=== PATIENT | female | born 1950 | race Caucasian/White ===

== ENCOUNTER → 2024-06-19 | Outpatient (CLI) | payer MEDICARE, OTHER, SELFPAY ==
[2024-06-19 11:59] LABS: Thyroid Stimulating Hormone 2.97 uIU/mL (0.55-4.78)
[2024-06-26 07:38] LABS: ANA Screen, IFA NEGATIVE (NEGATIVE)
== END | disposition home or self-care (01) ==
LOC: COPL 10:46
PROVIDERS: PCP Internal Medicine; Referring Provider Specialist; Visit Provider Specialist
DX: R13.10 Dysphagia, unspecified (principal)
CPT/HCPCS: 36415; 84443; 86038

== ENCOUNTER 2024-08-21 12:54 | Inpatient (IN) | payer MEDICARE, OTHER, SELFPAY ==
[2024-08-21] VITALS (11 sets, daily range): BP systolic 88–127; BP diastolic 42–78; PULSE 60–65; RESP 14–91; TEMP 36.1–39.2; O2SAT 91–100; BMI 26.6
--- NOTE | 2024-08-21 13:01 | EKG_ITS ---
[facility] Test Date: 2024-08-21 Pat Name: JOE CASTELLANO Department: Room: - Gender: Female [employer]: : 1950 Requested By: ED Temporary Provider Order Number: [id number] Reading MD: ED Temporary Provider Measurements Intervals [place] Rate: 60 P: 189 PA: 299 QRS: -9 QRSD: 124 T: 0 QT: 344 QTc: 345 Interpretive Statements ELECTRONIC ATRIAL PACEMAKER POSSIBLE RIGHT VENTRICULAR CONDUCTION DELAY [RSR (QR) IN V1/V2] NONSPECIFIC T-WAVE ABNORMALITY ABNORMAL RHYTHM ECG Compared to ECG 05/02/2024 09:12:53 T-wave abnormality now present Ventricular-paced complex(es) or rhythm no longer present /store/S0/[id number]/ecg/[id number].pdf
--- NOTE | 2024-08-21 13:11 | XR_ITS ---
Examination: CT brain head without contrast. 2-D sagittal coronal reconstructions Date and time of exam:August 21, 2024 at 1602 hours INDICATIONS: Patient fell today with injury to the head, head pain COMPARISON: 04/16/2024 CTDI: vol (mGy):52.3 DLP: (mGycm):1031 Technique: Multiple CT axial sections of the brain have been obtained, 5 mm slice thickness. Contrast has not been administered. 2-D sagittal, coronal reconstructions have been obtained Low dose protocols were performed. One or more of the following dose reduction techniques were used; automated exposure control, adjustment of the mA and/or KV according to patient size, use of iterative reconstruction technique. Findings: No significant ventricular enlargement. Intra-axial or extra-axial hemorrhage density is not seen. No mass effect or midline shift Basal cisterns are not remarkable. Fourth ventricle is midline. Cranial vault intact. Impression: Negative for acute hemorrhage, mass effect or midline shift
--- NOTE | 2024-08-21 13:12 | PD.EDRME ---
Rapid Medical Screening Exam RME Arrival date/time: 08/21/24 12:54 74-year-old female presents to the emergency department with complaints of altered mental status per family member. I have greeted and performed a focused initial assessment of this patient. Initial appropriate labs ordered at this time. A comprehensive ED assessment and evaluation of the patient and analysis of all test and completion of medical decision making process will be conducted by additional ED provider. Chief Complaint: Altered Mental Status Time Seen by Provider: 08/21/24 13:11
[2024-08-21 13:41] LABS: Basophils # (Auto) 0.1 Thou/mm3 (0.0-0.2); Basophils % (Auto) 0 % (0-2.5); Eosinophils % (Auto) 0 % (0-10); Hematocrit 38.3 % (36.0-46.0); Hemoglobin 12.8 g/dL (12.0-16.0); Immature Granulocytes % (Auto) 1 % (0-0); Immature Granulocytes Auto 0.15 Thou/mm3 (0.00-0.00); Lymphocytes # (Auto) 1.2 Thou/mm3 (1.0-4.8); Lymphocytes % (Auto) 5 % (10-50); Mean Corpuscular HGB Conc 33.4 g/dl (31.0-37.0); Mean Corpuscular Hemoglobin 30.2 pg (25.0-35.0); Mean Corpuscular Volume 90 fL (80-100); Monocytes # (Auto) 0.8 Thou/mm3 (0.0-0.8); Monocytes % (Auto) 4 % (0-12); Neutrophils # (Auto) 20.7 Thou/mm3 (1.8-7.7); Neutrophils % (Auto) 90 % (37-80); Nucleated Red Blood Cell % 0 /100 WBC (0); Platelet Count 211 Thou/mm3 (140-440); RDW Standard Deviation 50.7 fL (36.4-46.3); Red Blood Count 4.24 Miln/mm3 (4.00-5.20)
--- NOTE | 2024-08-21 13:50 | PD.EDADULT ---
ED General RME/HPI General Chief complaint: Altered Mental Status Stated complaint: CONFUSED/CAN'T WALK TODAY, LAST NORMAL 2200 Time Seen by Provider: 08/21/24 13:11 Arrival date/time: 08/21/24 12:54 CC: Confusion/altered mental status HPI patient which normally wakes up at 7 AM in the morning did not wake up until 11 after her son woke her up, the patient states she sat in her chair as observed by her and was minimal responsive with simple yes or no to questions complained of feeling chilly put her next to her heater, the patient became too hot and still complained of chills. This was approximately 11 AM currently at 151 patient is awake alert oriented x 3 Glascow coma 15 no focal deficits only complaining of chronic back pain. Initial vital signs show the patient has no fever and at bedside states this is the brightest she has been all day . assures me the patient was normal yesterday. Patient has significant cardiac history with pacemaker placed by Dr. Marycarmen Harris. RME / HPI RME / HPI narrative: 08/21/24 12:54 74-year-old female presents to the emergency department with complaints of altered mental status per family member. I have greeted and performed a focused initial assessment of this patient. Initial appropriate labs ordered at this time. A comprehensive ED assessment and evaluation of the patient and analysis of all test and completion of medical decision making process will be conducted by additional ED provider. Related Data Home Medications ?Medication ?Instructions ?Recorded ?Confirmed Calcium Carbonate/Cholecalciferol 600 mg PO DAILY #0 tabs 06/11/17 08/21/24 600 * (CALTRATE PLUS D 600 *) Hydrocodone/Acetaminophen * (NORCO 2 tab PO DAILY PRN Pain #0 tabs 06/11/17 08/21/24 7.5/325 *) Levothyroxine * (SYNTHROID *) 0.05 mg PO QDAY #0 tabs 06/11/17 08/21/24 Multivitamins * (CENTRUM *) 1 tab PO QDAY #0 tabs 06/11/17 08/21/24 furosemide 40 mg tablet (Lasix) 40 mg PO QDAY #0 tabs 06/11/17 08/21/24 apixaban 5 mg tablet (Eliquis) 5 mg PO BID 04/16/24 08/21/24 revefenacin 175 mcg/3 mL solution 175 mcg inhalation QDAY 04/16/24 05/02/24 for nebulization (Yupelri) sennosides 8.6 mg tablet (senna) 8.6 mg PO HS 04/16/24 08/21/24 insulin detemir U-100 100 unit/mL 50 unit subcut DAILY 05/02/24 08/22/24 (3 mL) subcutaneous pen (Levemir FlexPen) prochlorperazine maleate 5 mg 5 mg PO BID 05/02/24 05/02/24 tablet carbidopa ER 50 mg-levodopa 200 mg 1 tab PO TID 08/21/24 08/21/24 tablet,extended release gabapentin 300 mg capsule 300 mg TID 08/21/24 08/21/24 metoprolol succinate 100 mg 100 mg PO DAILY 08/21/24 08/21/24 tablet,extended release 24 hr Allergies Allergy/AdvReac Type Severity Reaction Status Date / Time iodine Allergy Severe Swell up Verified 08/21/24 12:57 Review of Systems Review of Systems Narrative Review of Systems: GEN: No fever, no chills, no weight loss EYES: No discharge, no visual changes, no pain HEENT: No ear pain, no congestion, no sore throat PULM: No shortness of breath, no cough, no congestion CV: No chest pain, no dyspnea on exertion, no palpitations GI: No nausea, no vomiting, no diarrhea, no pain, no constipation : No frequency, no urgency, no dysuria MUSC/SKEL: No joint pain, no back pain SKIN: No rash PSYCH: No hallucinations, no depression HEME/LYMPH: No easy bleeding or bruising tendencies NEURO: No weakness, no headache, + confusion Past Medical History Past Medical History NEUROLOGIC: Positive Parkinson's Disease; Negative Seizures CARDIAC: Positive Cardiac Disorders, Congestive Heart Failure and Hypertension RESPIRATORY: Positive Chronic Obstructive Pulmonary Disease (COPD) and Asthma GENITOURINARY: Positive Renal Disease ENDOCRINE: Positive Diabetes Mellitus Type 2 and Hypothyroidism; Negative Diabetes Mellitus Type 1 HEMATOLOGIC: Negative Sickle Cell Disease OTHER HISTORY: Positive Blood Transfusions; Negative Autoimmune Disease, Blood Transfusion Reaction or Anesthesia Reactions Family History FAMILY HISTORY: Positive Family Cardiac Disorders, Family Gastrointestinal Problems, Family Cancer and Family Surgery; Negative Family Psychiatric Problems, Family Respiratory Disorders or Family Anesthesia Reaction Surgical History SURGICAL: Positive Pacemaker and Tonsillectomy Social History SMOKING STATUS: Never smoker ED Exam Narrative Physical exam: [General: Deconditioned, but not frail and not in any acute distress Head normocephalic HEENT: Within acceptable limits Neck is supple nontender Chest equal chest rise nontender to palpation Respiratory: Clear to auscultation no wheezes crackles or rubs CV: Rate rhythm is regular no murmurs rubs or clicks Abdomen is distended secondary to body habitus soft nontender no masses positive bowel sounds all 4 quadrants Back: No CVA tenderness no spinous process tenderness from cervical spine thoracic and lumbar spine Skin: Intact no petechiae rash induration ulceration or crepitus Extremities: Moving all extremity against resistance cap refill less than 2 seconds neurosensory intact. No lower extremity edema's. Neuro: Awake alert oriented x3 Glascow coma 15 no focal deficits] Course Quality Measures none Orders Category Date Time Status Bedside Blood Glucose NOW Care 08/21/24 13:01 Completed Bedside Blood Glucose NOW Care 08/21/24 13:11 Active Bedside COVID-19 Antigen Test NOW Care 08/21/24 13:11 Active Bedside Influenza A&B Antigen Test NOW Care 08/21/24 13:11 Completed Sander And Polisher STAT Care 08/21/24 14:13 Active Continuous Pulse Oximetry STAT Care 08/21/24 14:13 Completed EKG (ED ONLY) *Do not use* NOW Care 08/21/24 13:02 Completed In and Out Catheter X1 Care 08/21/24 13:11 Completed In and Out Catheter X1PRN Care 08/21/24 14:13 Completed Insert IV NOW Care 08/21/24 13:11 Active NPO NOW Care 08/21/24 13:11 Active NPO STAT Care 08/21/24 14:13 Active Strict Intake and Output Routine Care 08/21/24 14:[address] head/brain wo con Stat Exams 08/21/24 13:11 Completed EKG (ED Only) Stat Exams 08/21/24 13:01 Draft XR chest 1V Stat Exams 08/21/24 14:14 Completed Acetaminophen Stat Lab 08/21/24 13:31 Completed Alcohol, Blood Medical Stat Lab 08/21/24 13:31 Completed Ammonia Stat Lab 08/21/24 13:31 Completed B-Type Natriuretic Peptide Stat Lab 08/21/24 14:20 Completed Blood Culture (Lab) Stat Lab 08/21/24 14:15 Results CBC Stat Lab 08/21/24 13:31 Completed CBC Stat Lab 08/21/24 14:20 Completed Comprehensive Metabolic Panel Stat Lab 08/21/24 13:31 Completed Drug Screen,Urine Stat Lab 08/21/24 13:50 Completed LDH (Lactate Dehydrogenase) Stat Lab 08/21/24 14:20 Completed Lactate (Lactic Acid) Stat Lab 08/21/24 14:20 Completed Lipase Stat Lab 08/21/24 14:20 Completed Magnesium Stat Lab 08/21/24 14:20 Completed Partial Thromboplastin Time Stat Lab 08/21/24 13:31 Completed Phosphorous Stat Lab 08/21/24 14:20 Completed Procalcitonin Stat Lab 08/21/24 14:20 Completed Prothrombin Time with INR Stat Lab 08/21/24 13:31 Completed Troponin I Stat Lab 08/21/24 13:31 Completed Troponin I Stat Lab 08/21/24 14:20 Completed Urinalysis Stat Lab 08/21/24 13:50 Completed Urine Culture Stat Lab 08/21/24 13:50 Results Acetaminophen Tab [Tylenol Tab] Med 08/21/24 14:14 Discontinued 650 mg PO X1 ONE Sodium Chloride 0.9% 1000 ml [Ns] 1,000 ml Med 08/21/24 16:21 Discontinued IV 999 mls/hr Sodium Chloride 0.9% 1000 ml [Ns] 1,000 ml Med 08/21/24 16:21 Discontinued IV 999 mls/hr cefTRIAXone/D5w 1gm IV premix [Rocephin/D5w 1gm IV Med 08/21/24 16:12 Discontinued premix] 50 ml IV X1 Oxygen Delivery NOW RT 08/21/24 14:13 Active Vital Signs Vital signs: Vital Signs Temperature 98.4 F 08/21/24 13:15 Pulse Rate 62 08/21/24 13:15 Respiratory Rate 16 08/21/24 13:15 Blood Pressure 126/78 08/21/24 13:15 Pulse Oximetry (%) 91 L 08/21/24 13:15 Oxygen Delivery Method Room Air 08/21/24 13:15 [facility] Patient data External records reviewed:: [facility] previous records Clinical information provided by:: patient and spouse Social determinants that could affect healthcare access:: none Patient has the following chronic illnesses:: Pacemaker. How is presenting disease/condition affected by chronic disease/condition?: uneffected by Evaluation data The following diagnostics were reviewed and interpreted by me:: lab results and radiology exam(s) Lab and/or radiology exams considered but not ordered:: EKG performed at 1319 shows a ventricular rate of 60 NH interval 299 QRS of 124 QTc of 345 electronically paced rhythm nonspecific T wave abnormalities but there is a baseline wander in all leads. CBC shows a leukocytosis of 25, no anemia thrombocytopenia Coags show an INR 1.2 CMP shows a sodium of 137 potassium of 4.7 chloride of 104 CO2 of 23.7 BUN of 34 creatinine of 2.1 glucose 153 Lactic acid of 2.7 Pro-Severo of 13.83 Trope of 0.228 Lipase 27. Urine is grossly positive for UTI. Interpretation Summary: Positive UTI febrile septic, with a mildly elevated troponin of 0.228. Patient's case discussed with Dr. Murillo, resident who agrees to except the patient for Dr. Grajeda. Patient is in agreement with the plan Medications Medications considered but not ordered:: None Medication administrations:: Medication Administration History Acetaminophen (Acetaminophen 325 Mg Tablet) 650 mg PO Q6H PRN PRN Reason: Fever >100.4 or pain Stop: 09/20/24 17:20 Albuterol/Ipratropium (Albuterol/Ipratropium (Duoneb) Rt Fidelina 3 Ml Nebu) 3 ml INH Q2HR PRN PRN Reason: SHORTNESS OF BREATH OR WHEEZE Stop: 09/20/24 17:20 Last Admin: 08/21/24 18:29 Dose: 3 ml Documented By: Apixaban (Apixaban 2.5 Mg Tablet) 5 mg PO BID SHANE Stop: 09/20/24 20:59 Last Admin: 08/22/24 08:35 Dose: 5 mg Documented By: Admin: 08/21/24 20:38 Dose: 5 mg Documented [place] [facility] [place] Carbidopa/Levodopa (Carbidopa/Levodopa Cr 50/200 Tabcr) 1 tab PO TID SHANE Stop: 09/21/24 08:59 Last Admin: 08/22/24 08:35 Dose: 1 tab Documented By: TM Dextrose (Dextrose 50%-Water Inj 50 Ml Syringe) 25 ml IV Q15MIN PRN PRN Reason: BG 50-70 responsive npo pt Stop: 09/20/24 17:33 Dextrose (Dextrose 50%-Water Inj 50 Ml Syringe) 50 ml IV Q15MIN PRN PRN Reason: BG <50 OR BG <70 & pt unresponsive Stop: 09/20/24 17:33 Glucagon (Glucagon Inj 1 Mg Vial) 1 mg IM Q15MIN PRN PRN Reason: BG <70, and no IV access Piperacillin/Tazobactam/Dextrose (Zosyn) 50 mls @ 12.5 mls/hr IV Q8HR [facility] Stop: 08/29/24 05:59 Last Admin: 08/22/24 05:44 Dose: 12.5 mls/hr Documented By: [facility] Sodium Chloride (Ns) 1,000 mls @ 100 mls/hr IV .Q10H [facility] Stop: 09/21/24 09:49 Last Admin: 08/22/24 10:27 Dose: 100 mls/hr Documented By: TM Insulin Glargine (Insulin Glargine (Lantus) 5 Unit/0.05 Ml (Per 5 Units)) 10 unit SC QDAY [facility] Stop: 09/21/24 08:59 Last Admin: 08/22/24 08:35 Dose: 10 unit Documented By: TM Co-signed By: CARO Comments: Insulin Human Lispro (Insulin Lispro (Admelog) 1 Unit/0.01 Ml Unit) 0 unit SC AC [facility]; Protocol Stop: 09/21/24 07:29 Last Admin: 08/22/24 07:51 Dose: 2 unit Documented By: TM Co-signed By: JESSIE Magnesium Hydroxide (Milk Of Magnesia Susp 30 Ml Udc) 30 ml PO QDAY PRN; Protocol PRN Reason: CONSTIPATION Stop: 09/20/24 17:20 Ondansetron HCl (Ondansetron Inj 2 Mg/Ml Inj 2 Ml) 4 mg IV Q6H PRN; Protocol PRN Reason: NAUSEA OR VOMITING Stop: 09/20/24 17:20 Pharmacy Consult (Pharmacy Renal Dose Adjustment 1 Ea) 1 each XX PRN PRN PRN Reason: CONSULT Stop: 09/20/24 19:06 Sennosides (Senna Tablet) 1 tab PO QDAY PRN; Protocol PRN Reason: constipation Stop: 09/20/24 17:20 Discontinued Medications Acetaminophen (Acetaminophen 325 Mg Tablet) 650 mg PO X1 ONE Stop: 08/21/24 14:15 Last Admin: 08/21/24 14:29 Dose: 650 mg Documented By: DANIEL Carbidopa/Levodopa (Carbidopa/Levodopa Cr 50/200 Tabcr) 1 tab PO TID SHANE Stop: 09/20/24 21:59 Carbidopa/Levodopa (Carbidopa/Levodopa Cr 50/200 Tabcr) 1 tab PO X1 ONE Stop: 08/21/24 21:34 Last Admin: 08/21/24 21:39 Dose: 1 tab Documented By: CHAVA Ceftriaxone Sodium/Dextrose (Rocephin/D5w 1gm Iv Premix) 50 mls @ 100 mls/hr IV X1 ONE Stop: 08/21/24 16:41 Last Infusion: 08/21/24 17:12 Dose: Infused Documented By: Admin: 08/21/24 16:35 Dose: 100 mls/hr Documented By: DANIEL Sodium Chloride (Ns) 1,000 mls @ 999 mls/hr IV .Q1H1M ONE Stop: 08/21/24 17:21 Last Infusion: 08/21/24 17:35 Dose: Infused Documented By: Admin: 08/21/24 16:34 Dose: 999 mls/hr Documented By: DANIEL Sodium Chloride (Ns) 1,000 mls @ 999 mls/hr IV .Q1H1M ONE Stop: 08/21/24 17:21 Last Infusion: 08/21/24 17:40 Dose: Infused Documented By: Admin: 08/21/24 16:35 Dose: 999 mls/hr Documented By: DANIEL Sodium Chloride (Ns) 1,000 mls @ 100 mls/hr IV .Q10H ONE Stop: 08/22/24 03:23 Last Admin: 08/21/24 19:13 Dose: 100 mls/hr Documented By: CHAVA Ceftriaxone Sodium/Dextrose (Rocephin/D5w 1gm Iv Premix) 50 mls @ 100 mls/hr IV QDAY SHANE Stop: 08/29/24 08:59 Sodium Chloride (Ns) 500 mls @ 999 mls/hr IV .Q31M ONE Stop: 08/22/24 05:53 Last Admin: 08/22/24 05:27 Dose: 999 mls/hr Documented By: CHAVA None Consultations Consultation(s) initiated? (list below): No Diagnosis Differential Diagnosis ED Complaint MDM: UTI sepsis dehydration Most likely diagnosis given after review of the tests above:: UTI sepsis Admission Indicated Admission indicated?: indicated Explain why admission is indicated or not indicated:: Further medical management Admission Request Was there a request for admission?: No Disposition Plan Disposition Plan: Admit Medical Decision Making Differential Diagnosis Differential Diagnosis: UTI sepsis dehydration Lab Data 08/22/24 02:33 08/22/24 02:33 Labs: Lab Results 08/21/24 08/21/24 08/21/24 Range/Units 13:31 13:50 14:20 WBC 23.0 H 25.1 H (3.6-11.0) Thou/mm3 RBC 4.24 3.99 L (4.00-5.20) Miln/mm3 Hgb 12.8 12.0 (12.0-16.0) g/dL Hct 38.3 36.4 (36.0-46.0) % MCV 90 91 (80-100) fL MCH 30.2 30.1 (25.0-35.0) pg MCHC 33.4 33.0 (31.0-37.0) g/dl RDW Std Deviation 50.7 H 50.8 H (36.4-46.3) fL Plt Count 211 203 (140-440) Thou/mm3 Neut % (Auto) 90 H 89 H (37-80) % Lymph % (Auto) 5 L 4 L (10-50) % [place] % (Auto) 4 6 (0-12) % Eos % (Auto) 0 0 (0-10) % Baso % (Auto) 0 0 (0-2.5) % Neut # (Auto) 20.7 H 22.3 H (1.8-7.7) Thou/mm3 Lymph # (Auto) 1.2 1.0 (1.0-4.8) Thou/mm3 [place] # (Auto) 0.8 1.4 H (0.0-0.8) Thou/mm3 Eos # (Auto) 0.0 0.1 (0.0-0.5) Thou/mm3 Baso # (Auto) 0.1 0.1 (0.0-0.2) Thou/mm3 Immature Gran # (Auto) 0.15 H 0.18 H (0.00-0.00) Thou/mm3 Absolute Nucleated RBC 0.00 0.00 (0.00-0.00) Thou/mm3 Immature Gran % 1 H 1 H (0-0) % Nucleated RBC % 0 0 (0) /100 WBC PT 12.6 H (9.0-12.2) Seconds INR 1.2 (0.9-1.3) APTT 30.2 (22.0-36.0) Seconds Sodium 137 (136-145) mMol/L Potassium 4.7 (3.4-5.1) mMol/L Chloride 104 (98-107) mMol/L Carbon Dioxide 23.7 (20.0-31.0) mMol/L Anion Gap 9 (7-16) BUN 34 H (9-23) mg/dL Creatinine 2.1 H (0.6-1.3) mg/dL Estim Creat Clear Calc 26.9 L (>60) mL/min eGFR 24 L (60 - ) See Note BUN/Creatinine Ratio 16 (12-20) Ratio Glucose 153 H (74-106) mg/dL Calculated Osmolality 284 (275-295) Lactic Acid 2.7 H (0.4-2.0) mMol/L Calcium 9.4 (8.3-10.6) mg/dL Corrected Calcium 9.4 (8.5-10.1) mg/dL Phosphorus 3.3 (2.4-5.1) mg/dL Magnesium 1.8 (1.6-2.6) mg/dL Total Bilirubin 1.1 (0.3-1.2) mg/dL AST 29 (0-34) U/L ALT 24 (10-49) U/L Alkaline Phosphatase 91 (46-116) U/L Ammonia < 10 L (11-32) uMol/L Lactate Dehydrogenase 173 (120-246) U/L Troponin I 0.219 H* 0.228 H* (0.0-0.045) ng/mL B-Natriuretic Peptide 951 H* (0-100) pg/mL Total Protein 6.7 (5.7-8.2) gm/dL Albumin 4.0 (3.4-4.8) gm/dL Globulin 2.7 (2.3-3.5) gm/dL Albumin/Globulin Ratio 1.5 (1.2-2.2) Lipase 23 (12-53) U/L Procalcitonin 13.83 H (0.0-0.49) ng/ml Ur Collection Type Clean Catch Urine Color Yellow (Lt Yel-Yel) Urine Clarity Cloudy A (Clear/Hazy) Urine pH 6.0 (5.0-7.0) Ur Specific [place] 1.012 (1.001-1.035) Urine Protein 2+ A (Neg - Trace) Urine Glucose (UA) Negative (Negative) Urine Ketones Negative (Negative) Urine Blood 2+ A (Negative) Urine Nitrite Negative (Negative) Urine Bilirubin Negative (Negative) Urine Urobilinogen (Auto) Negative (0.0-1.0) mg/dL Ur Leukocyte Esterase Positive (Negative) Urine RBC 33 H (0-3) /hpf Urine WBC 2782 H (0-5) /hpf Ur Squamous Epith Cells 0 (0-5) /hpf Urine Bacteria None (None) Urine Opiates Screen Positive A (Negative) Urine Fentanyl Screen Negative (Negative) Acetaminophen < 2.0 L (10.0-20.0) mcg/mL Ur Barbiturates Screen Negative (Negative) U Amphetamin/Meth Scrn Negative (Negative) U Benzodiazepines Scrn Negative (Negative) U Cocaine Metab Screen Negative (Negative) U Marijuana (THC) Screen Negative (Negative) Ethyl Alcohol < 3.0 (0-10.0) mg/dL Discharge Plan Plan Patient Disposition: Other Care w/in Hosp (SDC/[facility]MA) Patient condition on transfer: Stable Problem List Clinical Impression: Acute UTI, Sepsis, Elevated troponin 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
[2024-08-21 13:54] LABS: INR 1.2 (0.9-1.3); Partial Thromboplastin Time 30.2 Seconds (22.0-36.0); Prothrombin Time 12.6 Seconds (9.0-12.2)
[2024-08-21 14:06] LABS: Ammonia < 10 uMol/L (11-32)
[2024-08-21 14:07] LABS: Acetaminophen < 2.0 mcg/mL (10.0-20.0); Alanine Aminotransferase 24 U/L (10-49); Albumin/Globulin Ratio 1.5 (1.2-2.2); Alcohol, Blood Medical < 3.0 mg/dL (0-10.0); Alkaline Phosphatase 91 U/L (46-116); Anion Gap 9 (7-16); Aspartate Amino Transferase 29 U/L (0-34); BUN/Creatinine Ratio 16 Ratio (12-20); Bilirubin,Total 1.1 mg/dL (0.3-1.2); Blood Urea Nitrogen 34 mg/dL (9-23); Calcium 9.4 mg/dL (8.3-10.6); Calcium (Corrected) 9.4 mg/dL (8.5-10.1); Carbon Dioxide 23.7 mMol/L (20.0-31.0); Chloride 104 mMol/L (98-107); Creatinine (Component) 2.1 mg/dL (0.6-1.3); Estimated Creatinine Clearance 26.9 mL/min (>60); Globulin 2.7 gm/dL (2.3-3.5); Glucose 153 mg/dL (74-106); Osmolality,Calculated 284 (275-295); Potassium 4.7 mMol/L (3.4-5.1); Sodium 137 mMol/L (136-145); Total Protein 6.7 gm/dL (5.7-8.2); eGFR 24 See Note
[2024-08-21 14:11] LABS: Troponin I 0.219 ng/mL (0.0-0.045)
--- NOTE | 2024-08-21 14:14 | XR_ITS ---
Examination: AP chest single view Technique one AP portable semiupright chest single view Exam date and time: August 21 2024 14/22 hours Comparison 04/24/2024 INDICATIONS: Sepsis today. FINDINGS: Accentuation basilar bronchovascular markings No lobar pneumonia No significant cardiac enlargement Cardiac leads satisfactory position Moderate osteopenia IMPRESSION: Bronchitis pattern No lobar pneumonia
[2024-08-21 14:29] LABS: Lactate (Lactic Acid) 2.7 mMol/L (0.4-2.0)
[2024-08-21] MEDS: ACETAMINOPHEN 325 MG TABLET 650 MG PO (14:29)
[2024-08-21 14:30] LABS: Basophils # (Auto) 0.1 Thou/mm3 (0.0-0.2); Basophils % (Auto) 0 % (0-2.5); Eosinophils # (Auto) 0.1 Thou/mm3 (0.0-0.5); Eosinophils % (Auto) 0 % (0-10); Hematocrit 36.4 % (36.0-46.0); Immature Granulocytes % (Auto) 1 % (0-0); Immature Granulocytes Auto 0.18 Thou/mm3 (0.00-0.00); Lymphocytes % (Auto) 4 % (10-50); Mean Corpuscular Hemoglobin 30.1 pg (25.0-35.0); Mean Corpuscular Volume 91 fL (80-100); Monocytes # (Auto) 1.4 Thou/mm3 (0.0-0.8); Monocytes % (Auto) 6 % (0-12); Neutrophils # (Auto) 22.3 Thou/mm3 (1.8-7.7); Neutrophils % (Auto) 89 % (37-80); Nucleated Red Blood Cell % 0 /100 WBC (0); Platelet Count 203 Thou/mm3 (140-440); RDW Standard Deviation 50.8 fL (36.4-46.3); Red Blood Count 3.99 Miln/mm3 (4.00-5.20); White Blood Count 25.1 Thou/mm3 (3.6-11.0)
[2024-08-21 14:31] LABS: Collection Type, Urine Clean Catch; Squamous Epithelial Cell,Urine 0 /hpf (0-5)
[2024-08-21 14:53] LABS: Amphetamine/Methamp Scrn,U Negative (Negative); Barbiturate Screen,Urine Negative (Negative); Benzodiazepines Screen,Urine Negative (Negative); Benzoylecgonine Screen, Ur Negative (Negative); Fentanyl Screen,Urine Negative (Negative); Opiate Screen,Urine Positive (Negative); THC Screen,Urine Negative (Negative)
[2024-08-21 14:59] LABS: LDH (Lactate Dehydrogenase) 173 U/L (120-246); Lipase 23 U/L (12-53); Magnesium 1.8 mg/dL (1.6-2.6); Phosphorous 3.3 mg/dL (2.4-5.1); Procalcitonin 13.83 ng/ml (0.0-0.49)
[2024-08-21 15:01] LABS: Troponin I 0.228 ng/mL (0.0-0.045)
[2024-08-21 15:11] LABS: Bilirubin,Urine Negative (Negative); Blood,Urine 2+ (Negative); Glucose, Urine Negative (Negative); Ketones,Urine Negative (Negative); Leukocyte Esterase,Urine Positive (Negative); Nitrite,Urine Negative (Negative); Protein,Urine 2+ (Neg - Trace); RBC,Urine 33 /hpf (0-3); Specific Gravity,Urine 1.012 (1.001-1.035); Urobilinogen,Urine Negative mg/dL (0.0-1.0); WBC,Urine 2782 /hpf (0-5)
[2024-08-21 15:13] LABS: Clarity,Urine Cloudy (Clear/Hazy); Color,Urine Yellow (Lt Yel-Yel)
[2024-08-21 16:12] LABS: B-Type Natriuretic Peptide 951 pg/mL (0-100)
[2024-08-21] MEDS: SODIUM CHLORIDE 0.9% 1000 ML 1,000 ML 999 ML IV ×2 (16:34→16:35)
[2024-08-21] MEDS: cefTRIAXone/D5w 1gm IV premix 50 ML IV (16:35)
[2024-08-21 17:26] LABS: Reflex Lactate? Y
[2024-08-21 17:40] LABS: Lactic Acid, 3 HR 1.1 mMol/L (0.4-2.0)
[2024-08-21] MEDS: ALBUTEROL/IPRATROPIUM (Duoneb) RT SOL 3 ML NEBU INH (18:29)
--- NOTE | 2024-08-21 18:31 | ESHP_ITS ---
<Statement entered by Samuel Shah MD - 08/21/24 19:34> This patient is a 74-year-old female with past medical history of A-fib, sick sinus syndrome post pacemaker in May 2024, HFpEF EF 55-60%, COPD, insulin dependent diabetes, Parkinson, hypertension presented with altered mentation and incoherent speech started at 11 AM however when patient arrived in the ED and during our assessment she was AOx3. Head CT was unremarkable. Patient was taking Eliquis for A-fib. Patient was found to have turbid urine with pyuria and ALLYSON with Cr 2.1 baseline 0.9 in 2023 and soft blood pressure with MAP 60-65 on admission. She met SIRS criteria and admitted for sepsis due to UTI. Currently started on IV antibiotics Rocephin 1 g daily and IV fluid 100 cc/h. Patient received 2 L bolus of fluids in the ED. Patient has had a mild elevation in troponin I however denied any chest pain or EKG changes. Will monitor her troponin I every 6 hourly. Only her home medication carbidopa levodopa and Eliquis was resumed for tomorrow as she took her medications today. Will closely monitor her blood pressure and placed on sliding scale for blood sugar management. All labs and orders were reviewed. I saw and examined the patient, and I agree with current management stated by Dr Brit MD,PGY1. Plan of care was discussed with the attending physician and resident physician. Disclaimer: Despite multiple revisions, due to the dictation software being used, the document bellow may not be free of grammatical errors including phonetic/typographic errors. However, this does not deter from our commitment to providing health care in the patient's best interest in mind. Dr. Shelley MD, PGY 2 Documentation for date of: 08/21/24 HPI History of Present Illness Chief complaint: AMS History of present illness: 74 y/o F with PMHx significant for A-fib, sick sinus syndrome with pacemaker, HFpEF, COPD, insulin-dependent diabetes, Parkinson's, HTN presented to ED with chief complaint of altered mental status x 1 day. Patient was in her usual state of health until approximately 11 AM day of admission, when she became weak, confused, disoriented. Condition self resolved upon arrival to ED. Patient is taking all her daily meds. Patient endorses mild shortness of breath. Patient denies fever, chills, chest pain, nausea, vomiting, dysuria. ED COURSE: Labs significant for: WBC 25.1, BUN 34, creatinine 2.1, EGFR 24, lactic acid 2.7, troponin 0.22, Pro-Severo 13.8. UA positive leukocyte esterase, WBC 2700. Imaging significant for: Chest x-ray showing bronchitis pattern. EKG unremarkable. Head CT unremarkable. Patient received a liter bolus normal saline and 1 g Rocephin in the ED. Patient was initially hypotensive with MAP down to 50, improved with fluid bolus. PMH: A-fib, sick sinus syndrome with pacemaker, HFpEF, COPD, diabetes, Parkinson's, hypertension PSH: Hysterectomy, appendectomy, 2 C-sections, back surgery Allergies:?Iodine Medications: Amlodipine, carbidopa levodopa, Eliquis, flecainide, fluconazole, Lasix, gabapentin, Jones, Tresiba, levothyroxine, metoprolol. Review of Systems Review of Systems Systems Reviewed: All systems reviewed, normal except as documented Past Medical History Past Medical History Comments PMH COMMENT: PMH: A-fib, sick sinus syndrome with pacemaker, HFpEF, COPD, diabetes, Parkinson's, hypertension PSH: Hysterectomy, appendectomy, 2 C-sections, back surgery Allergies:?Iodine Medications: Amlodipine, carbidopa levodopa, Eliquis, flecainide, fluconazole, Lasix, gabapentin, Jones, Tresiba, levothyroxine, metoprolol. Exam Vital Signs Temp Pulse Resp BP Pulse Ox O2 Del Method O2 Flow Rate 98.5 F 60 21 H 106/52 L 100 Nasal Cannula 4 08/21/24 18:20 08/21/24 18:23 08/21/24 18:23 08/21/24 18:23 08/21/24 18:23 08/21/24 18:23 08/21/24 18:23 Narrative Exam PE: Gen: Well-developed and well-nourished. Elderly, ill-appearing. HEENT: NCAT, PERRLA, EOMI, MMM, anicteric conjunctivae. CVS: normal S1 and S2. RRR. No M/R/G. Resp: No rhonchi, rales, crackles. Mild wheezing in all lung french. Abd: soft, non-tender, non-distended. BS+ in all 4 quadrants. MSK: Good ROM in BUE & BLE. No edema or rash. Neuro: CN II-XII grossly intact. Strength 5/5 in BUE & BLE. Alert and oriented x3. Psych: appropriate mood and affect. Results: Labs 08/22/24 02:33 08/22/24 02:33 Labs: Short CBC 08/21/24 08/21/24 Range/Units 13:31 14:20 WBC 23.0 H 25.1 H (3.6-11.0) Thou/mm3 Hgb 12.8 12.0 (12.0-16.0) g/dL Hct 38.3 36.4 (36.0-46.0) % Plt Count 211 203 (140-440) Thou/mm3 BMP 08/21/24 13:31 Sodium 137 Potassium 4.7 Chloride 104 Carbon Dioxide 23.7 BUN 34 H Creatinine 2.1 H Glucose 153 H Calcium 9.4 Cardiac Enzymes 08/21/24 08/21/24 Range/Units 13:31 14:20 Troponin I 0.219 H* 0.228 H* (0.0-0.045) ng/mL Liver Function 08/21/24 Range/Units 13:31 Total Bilirubin 1.1 (0.3-1.2) mg/dL AST 29 (0-34) U/L ALT 24 (10-49) U/L Alkaline Phosphatase 91 (46-116) U/L Albumin 4.0 (3.4-4.8) gm/dL Urine 08/21/24 Range/Units 13:50 Urine Color Yellow (Lt Yel-Yel) Urine Clarity Cloudy A (Clear/Hazy) Urine pH 6.0 (5.0-7.0) Ur Specific Gatzke 1.012 (1.001-1.035) Urine Protein 2+ A (Neg - Trace) Urine Glucose (UA) Negative (Negative) Quality Measures Quality Measures VTE prophylaxis Advance care planning discussed with:: patient and spouse Medications Home Medications and Allergies Home Medications ?Medication ?Instructions ?Recorded ?Confirmed ?Type Calcium Carbonate/Cholecalciferol 600 mg PO DAILY #0 tabs 06/11/17 08/21/24 History 600 * (CALTRATE PLUS D 600 *) Hydrocodone/Acetaminophen * (NORCO 2 tab PO DAILY PRN Pain #0 tabs 06/11/17 08/21/24 History 7.5/325 *) Levothyroxine * (SYNTHROID *) 0.05 mg PO QDAY #0 tabs 06/11/17 08/21/24 History Multivitamins * (CENTRUM *) 1 tab PO QDAY #0 tabs 06/11/17 08/21/24 History furosemide 40 mg tablet (Lasix) 40 mg PO QDAY #0 tabs 06/11/17 08/21/24 History apixaban 5 mg tablet (Eliquis) 5 mg PO BID 04/16/24 08/21/24 History revefenacin 175 mcg/3 mL solution 175 mcg inhalation QDAY 04/16/24 05/02/24 History for nebulization (Yupelri) sennosides 8.6 mg tablet (senna) 8.6 mg PO HS 04/16/24 08/21/24 History insulin detemir U-100 100 unit/mL 50 unit subcut DAILY 05/02/24 08/22/24 History (3 mL) subcutaneous pen (Levemir FlexPen) prochlorperazine maleate 5 mg 5 mg PO BID 05/02/24 05/02/24 History tablet carbidopa ER 50 mg-levodopa 200 mg 1 tab PO TID 08/21/24 08/21/24 History tablet,extended release gabapentin 300 mg capsule 300 mg TID 08/21/24 08/21/24 History metoprolol succinate 100 mg 100 mg PO DAILY 08/21/24 08/21/24 History tablet,extended release 24 hr Allergies Allergy/AdvReac Type Severity Reaction Status Date / Time iodine Allergy Severe Swell up Verified 08/21/24 12:57 Visit Medications Acetaminophen (Acetaminophen 325 Mg Tablet) 650 mg PO Q6H PRN PRN Reason: Fever >100.4 or pain Stop: 09/20/24 17:20 Albuterol/Ipratropium (Albuterol/Ipratropium (Duoneb) Rt Fidelina 3 Ml Nebu) 3 ml INH Q2HR PRN PRN Reason: SHORTNESS OF BREATH OR WHEEZE Stop: 09/20/24 17:20 Last Admin: 08/21/24 18:29 Dose: 3 ml Apixaban (Apixaban 2.5 Mg Tablet) 5 mg PO BID SHANE Stop: 09/20/24 20:59 Carbidopa/Levodopa (Carbidopa/Levodopa Cr 50/200 Tabcr) 1 tab PO TID [facility] Stop: 09/21/24 08:59 Dextrose (Dextrose 50%-Water Inj 50 Ml Syringe) 25 ml IV Q15MIN PRN PRN Reason: BG 50-70 responsive npo pt Stop: 09/20/24 17:33 Dextrose (Dextrose 50%-Water Inj 50 Ml Syringe) 50 ml IV Q15MIN PRN PRN Reason: BG <50 OR BG <70 & pt unresponsive Stop: 09/20/24 17:33 Glucagon (Glucagon Inj 1 Mg Vial) 1 mg IM Q15MIN PRN PRN Reason: BG <70, and no IV access Sodium Chloride (Ns) 1,000 mls @ 100 mls/hr IV .Q10H ONE Stop: 08/22/24 03:23 Ceftriaxone Sodium/Dextrose (Rocephin/D5w 1gm Iv Premix) 50 mls @ 100 mls/hr IV QDAY [facility] Stop: 08/29/24 08:59 Insulin Human Lispro (Insulin Lispro (Admelog) 1 Unit/0.01 Ml Unit) 0 unit SC AC [facility]; Protocol Stop: 09/21/24 07:29 Magnesium Hydroxide (Milk Of Magnesia Susp 30 Ml Udc) 30 ml PO QDAY PRN; Protocol PRN Reason: CONSTIPATION Stop: 09/20/24 17:20 Ondansetron HCl (Ondansetron Inj 2 Mg/Ml Inj 2 Ml) 4 mg IV Q6H PRN; Protocol PRN Reason: NAUSEA OR VOMITING Stop: 09/20/24 17:20 Sennosides (Senna Tablet) 1 tab PO QDAY PRN; Protocol PRN Reason: constipation Stop: 09/20/24 17:20 Discontinued Medications Acetaminophen (Acetaminophen 325 Mg Tablet) 650 mg PO X1 ONE Stop: 08/21/24 14:15 Last Admin: 08/21/24 14:29 Dose: 650 mg Carbidopa/Levodopa (Carbidopa/Levodopa Cr 50/200 Tabcr) 1 tab PO TID [facility] Stop: 09/20/24 21:59 Ceftriaxone Sodium/Dextrose (Rocephin/D5w 1gm Iv Premix) 50 mls @ 100 mls/hr IV X1 ONE Stop: 08/21/24 16:41 Last Infusion: 08/21/24 17:12 Dose: Infused Sodium Chloride (Ns) 1,000 mls @ 999 mls/hr IV .Q1H1M ONE Stop: 08/21/24 17:21 Last Infusion: 08/21/24 17:35 Dose: Infused Sodium Chloride (Ns) 1,000 mls @ 999 mls/hr IV .Q1H1M ONE Stop: 08/21/24 17:21 Last Infusion: 08/21/24 17:40 Dose: Infused Assessment & Plan Plan 74 y/o F with PMHx significant for A-fib, sick sinus syndrome with pacemaker, HFpEF, COPD, insulin-dependent diabetes, Parkinson's, HTN presented to ED with chief complaint of altered mental status x 1 day, admitted for sepsis. #Acute encephalopathy, resolved #Sepsis secondary to UTI Patient presented with chief complaint of acute cephalopathy which resolved prior to treatment. Patient was found to be septic, UA indicating UTI as source. Patient vitals improving with 2 L bolus normal saline in the ED, received 1 dose Rocephin. Lactic acid 2.7 down to 1.1. Pro-Severo 13.8. Patient had leukocytosis 25.1, fever 102.5 improved with Tylenol. -Telemetry -Rocephin 1 g IV daily (started 08/21) -IVF: Normal saline 100 mL/h x 1 L -Tylenol 650 mg p.o. every 6 hours as needed for fever pain -Monitor daily labs -Follow-up blood and urine cultures #ALLYSON on CKD, prerenal Patient has history of CKD. Kidney function worse from baseline: BUN 34, creatinine 2.1, EGFR 24. Likely prerenal in the setting of dehydration and sepsis. Patient received 2 L bolus normal saline. -IVF as above -Avoid nephrotoxins -Monitor daily labs -Renally dose meds #HFpEF, patient history #A-fib #Troponinemia Patient has history of heart failure with preserved ejection fraction, A-fib. Home meds held in setting of sepsis with hypotension, except Eliquis. Patient troponin mildly elevated 0.22. -Trend troponin -Home med: Eliquis p.o. 5 mg twice daily -Telemetry -Strict I's and O's -IVF as above, then reassess #COPD Patient has history of COPD controlled with outpatient medication. Patient has home O2, does not require to use continuously. Patient saturating well on 3 L via nasal cannula. -O2, titrate to maintain saturation greater than 88% -DuoNebs as needed #Insulin-dependent diabetes Patient has medical history of insulin-dependent diabetes. Last A1c 6.4% as of 05/01/2024. Blood glucose <180 and 80. -Insulin sliding scale -Recheck A1c #Parkinson's Patient has history of Parkinson's disease, well-controlled with carbidopa?levodopa. Not currently showing active symptoms. -Will resume home meds starting tomorrow DVT prophylaxis: Eliquis GI prophylaxis: None Diet: Cardiac Lines: Peripheral IV Code status: Full code Plan of care discussed with senior resident Dr. Shah PGY?[address] Noble. Pierre Perea MD PGY-1 Attending Provider Attestation/Addendum I attest that I was physically present for the evaluation, physical examination, lab and imaging review of the patient with the residents. I discussed the case with the residents and agree with the findings and plans of care as documented above. Patient is a 74 years old female with past medical history of sick sinus syndrome status post pacemaker placement, HFpEF, COPD, diabetes, Parkinson's disease, hypertension who presented to the ED with complaint of altered mental status.? Patient slept until late this morning and when awake she was altered and the decided to bring her to the ED.? At bedside, patient complains of mild shortness of breath but denies any other complaints.? In the ED, she was found to have elevated WBC, ALLYSON, elevated lactic acid, and positive procalcitonin.? UA was positive for leukocyte esterase and high WBC.? Chest x- ray was negative for pneumonia but showed bronchitis pattern.? Head CT was done which was unremarkable.? In the ED, patient was noted to be having hypotension, but received 2 L of IV fluid bolus resulting in improved blood pressure.? At the time of examination, patient was already alert and oriented, able to answer questions and follow commands appropriately. We will admit the patient for management of acute encephalopathy likely secondary to sepsis from urinary tract infection, ALLYSON on CKD.? We will start her on IV antibiotics, IV fluids.? We will also resume her home Eliquis, DuoNebs, medication for her Parkinson's disease and also restart her on insulin regimen. Bony Noble MD
[2024-08-21] MEDS: SODIUM CHLORIDE 0.9% 1000 ML 1,000 ML 100 ML IV (19:13)
[2024-08-21] MEDS: APIXABAN 2.5 MG TABLET 5 MG PO (20:38)
[2024-08-21 21:11] LABS: Troponin I 0.158 ng/mL (0.0-0.045)
[2024-08-21] MEDS: CARBIDOPA/LEVODOPA CR 50/200 TABCR 1 TAB PO (21:39)
[2024-08-22] VITALS (11 sets, daily range): BP systolic 87–149; BP diastolic 39–69; PULSE 60–95; RESP 14–26; TEMP 36.1–37.1; O2SAT 91–97
[2024-08-22 02:57] LABS: Basophils # (Auto) 0.1 Thou/mm3 (0.0-0.2); Basophils % (Auto) 0 % (0-2.5); Eosinophils % (Auto) 0 % (0-10); Hematocrit 33.9 % (36.0-46.0); Immature Granulocytes % (Auto) 1 % (0-0); Immature Granulocytes Auto 0.36 Thou/mm3 (0.00-0.00); Lymphocytes # (Auto) 1.7 Thou/mm3 (1.0-4.8); Lymphocytes % (Auto) 6 % (10-50); Mean Corpuscular HGB Conc 32.4 g/dl (31.0-37.0); Mean Corpuscular Hemoglobin 29.9 pg (25.0-35.0); Mean Corpuscular Volume 92 fL (80-100); Monocytes # (Auto) 1.8 Thou/mm3 (0.0-0.8); Monocytes % (Auto) 6 % (0-12); Neutrophils # (Auto) 26.3 Thou/mm3 (1.8-7.7); Neutrophils % (Auto) 87 % (37-80); Nucleated Red Blood Cell % 0 /100 WBC (0); Platelet Count 163 Thou/mm3 (140-440); RDW Standard Deviation 52.2 fL (36.4-46.3); Red Blood Count 3.68 Miln/mm3 (4.00-5.20); White Blood Count 30.2 Thou/mm3 (3.6-11.0)
[2024-08-22 03:31] LABS: Glucose Estimated Average 169 mg/dL (80-131); Hemoglobin A1C 7.5 % Hgb (4.8-6.0)
[2024-08-22 03:42] LABS: Alanine Aminotransferase 8 U/L (10-49); Albumin, Serum 3.4 gm/dL (3.4-4.8); Albumin/Globulin Ratio 1.4 (1.2-2.2); Alkaline Phosphatase 80 U/L (46-116); Anion Gap 8 (7-16); Aspartate Amino Transferase 39 U/L (0-34); BUN/Creatinine Ratio 17 Ratio (12-20); Bilirubin,Total 0.4 mg/dL (0.3-1.2); Blood Urea Nitrogen 40 mg/dL (9-23); Calcium 8.7 mg/dL (8.3-10.6); Calcium (Corrected) 9.2 mg/dL (8.5-10.1); Carbon Dioxide 22.8 mMol/L (20.0-31.0); Chloride 107 mMol/L (98-107); Creatinine (Component) 2.4 mg/dL (0.6-1.3); Estimated Creatinine Clearance 23.5 mL/min (>60); Globulin 2.4 gm/dL (2.3-3.5); Glucose 228 mg/dL (74-106); Magnesium 1.7 mg/dL (1.6-2.6); Osmolality,Calculated 292 (275-295); Phosphorous 3.8 mg/dL (2.4-5.1); Potassium 4.7 mMol/L (3.4-5.1); Sodium 138 mMol/L (136-145); Total Protein 5.8 gm/dL (5.7-8.2); eGFR 21 See Note
[2024-08-22 03:43] LABS: Troponin I 0.191 ng/mL (0.0-0.045)
[2024-08-22] MEDS: SODIUM CHLORIDE 0.9% 500 ML 500 ML 999 ML IV (05:27)
--- NOTE | 2024-08-22 05:28 | PC.NURSE ---
rapid response called due to patient BP 87/39 AND 90/48, patient asymptomatic, alert, and oriented no respiratory distress, new orders given.
[2024-08-22] MEDS: PIPER/TAZO 3.375 GM 50 ML IV ×3 (05:44→21:06)
--- NOTE | 2024-08-22 05:47 | PD.RESEVENT ---
Documentation for date of: 08/22/24 Event Note Event Note: Rapid Response Room: 268 Time: 05:14 Reason for Call: Hypotension, 87/39 Patient presentation: Rapid called due to hypotension of 87/39. Rest of vitals stable, including HR 80. Temp 98.1. BG 220. Patient was awake, alert, having no complaints, denies dizziness, shortness of breath, or pain. Only medications patient has received tonight is her home carbidopa-levodopa and Eliquis. Patient got 2L in ED on admission today and was just finishing 1L bag at 100 ml/hr. Events: Recheck of BP was 96/51. Patient was given 500 ml bolus. BP improved to 110/59. Assessment: Hypotension in setting of sepsis secondary to UTI. Given uptrending WBC and history of Pseudomonas pneumonia and history of diabetes, antibiotic coverage was upgraded for Pseudomonas coverage. New orders: 500 ml IV NS bolus x1, upgraded ceftriaxone to Zosyn Patient was discussed with the attending, Dr. Bell, and team resident Stuart Horne, PGY-1. Janis Lee, PGY-2
[2024-08-22] MEDS: INSULIN LISPRO (AdmeLOG) 1 UNIT/0.01 ML UNIT SC ×4 (07:51→21:48)
[2024-08-22] MEDS: INSULIN GLARGINE (Lantus) 5 UNIT/0.05 ML (PER 5 UNITS) 10 UNIT SC ×2 (08:35→21:06)
[2024-08-22] MEDS: CARBIDOPA/LEVODOPA CR 50/200 TABCR 1 TAB PO ×3 (08:35→21:06)
[2024-08-22] MEDS: APIXABAN 2.5 MG TABLET 5 MG PO ×2 (08:35→21:06)
[2024-08-22] MEDS: SODIUM CHLORIDE 0.9% 1000 ML 1,000 ML 100 ML IV (10:27)
--- NOTE | 2024-08-22 13:12 | ESPR_ITS ---
<Statement entered by Samuel Shah MD - 08/22/24 14:59> Patient was seen and examined at the bedside this morning. Patient reported that she had back pain and takes [employer] for back pain however she was hypotensive during rapid response overnight therefore we will only prescribe lidocaine for now we will closely monitor her vitals today. Patient is growing GNR 2 out of 2 blood cultures and also urine cultures therefore antibiotics were escalated to Zosyn. A1c came out 7.5. White count up trended to 30.2. Kidney functions remain elevated at 2.4. Blood sugars are also elevated at 200. Therefore Lantus 10 units were started in addition to sliding scale. Will continue with current regime and closely monitor vitals. All labs and orders were reviewed. I saw and examined the patient, and I agree with current management stated by Dr Brit MD,PGY1. Plan of care was discussed with the attending physician and resident physician. Disclaimer: Despite multiple revisions, due to the dictation software being used, the document bellow may not be free of grammatical errors including phonetic/typographic errors. However, this does not deter from our commitment to providing health care in the patient's best interest in mind. Dr. Pablo MD, PGY 2 Documentation for date of: 08/22/24 Subjective Subjective Interval history: Overnight: Patient had rapid response called due to hypotension, BP 87/39. Patient was given 500 mL liter bolus normal saline with resolution. Patient seen and examined at bedside. Patient resting comfortably, notes subjective improvement in symptoms. Denies chest pain, shortness of breath, fevers, chills, nausea, vomiting, dysuria. WBCs uptrending, urine blood culture positive for GNR. Antibiotics changed to Zosyn. Continue to monitor kidney function. Exam Vital Signs Temp Pulse Resp BP Pulse Ox O2 Del Method O2 Flow Rate 97.0 F 60 24 H 110/59 L 92 L Oxy Mask 1 08/22/24 04:00 08/22/24 11:42 08/22/24 11:42 08/22/24 06:00 08/22/24 11:42 08/21/24 23:57 08/22/24 03:55 Narrative Exam PE: Gen: Well-developed and well-nourished. Elderly, ill-appearing. HEENT: NCAT, PERRLA, EOMI, MMM, anicteric conjunctivae. CVS: normal S1 and S2. RRR. No M/R/G. Resp: No rhonchi, rales, crackles. Mild wheezing in all lung french. Abd: soft, non-tender, non-distended. BS+ in all 4 quadrants. MSK: Good ROM in BUE & BLE. No edema or rash. Neuro: CN II-XII grossly intact. Strength 5/5 in BUE & BLE. Alert and oriented x3. Psych: appropriate mood and affect. Objective Labs 08/22/24 02:33 08/22/24 02:33 Labs: Laboratory Results - last 24 hr 08/21/24 08/21/24 08/21/24 13:31 13:50 14:20 WBC 23.0 H 25.1 H RBC 4.24 3.99 L Hgb 12.8 12.0 Hct 38.3 36.4 MCV 90 91 MCH 30.2 30.1 MCHC 33.4 33.0 RDW Std Deviation 50.7 H 50.8 H Plt Count 211 203 Neut % (Auto) 90 H 89 H Lymph % (Auto) 5 L 4 L [place] % (Auto) 4 6 Eos % (Auto) 0 0 Baso % (Auto) 0 0 Neut # (Auto) 20.7 H 22.3 H Lymph # (Auto) 1.2 1.0 [place] # (Auto) 0.8 1.4 H Eos # (Auto) 0.0 0.1 Baso # (Auto) 0.1 0.1 Immature Gran # (Auto) 0.15 H 0.18 H Absolute Nucleated RBC 0.00 0.00 Immature Gran % 1 H 1 H Nucleated RBC % 0 0 PT 12.6 H INR 1.2 APTT 30.2 Sodium 137 Potassium 4.7 Chloride 104 Carbon Dioxide 23.7 Anion Gap 9 BUN 34 H Creatinine 2.1 H Estim Creat Clear Calc 26.9 L eGFR 24 L BUN/Creatinine Ratio [address] Glu mg/dL Hemoglobin A1c Calculated Osmolality 284 Lactic Acid 2.7 H Calcium 9.4 Corrected Calcium 9.4 Phosphorus 3.3 Magnesium 1.8 Total Bilirubin 1.1 AST 29 ALT 24 Alkaline Phosphatase 91 Ammonia < 10 L Lactate Dehydrogenase 173 Troponin I 0.219 H* 0.228 H* B-Natriuretic Peptide 951 H* Total Protein 6.7 Albumin 4.0 Globulin 2.7 Albumin/Globulin Ratio 1.5 Lipase 23 Procalcitonin 13.83 H Ur Collection Type Clean Catch Urine Color Yellow Urine Clarity Cloudy A Urine pH 6.0 Ur Specific [place] 1.012 Urine Protein 2+ A Urine Glucose (UA) Negative Urine Ketones Negative Urine Blood 2+ A Urine Nitrite Negative Urine Bilirubin Negative Urine Urobilinogen (Auto) Negative Ur Leukocyte Esterase Positive Urine RBC 33 H Urine WBC 2782 H Ur Squamous Epith Cells 0 Urine Bacteria None Urine Opiates Screen Positive A Urine Fentanyl Screen Negative Acetaminophen < 2.0 L Ur Barbiturates Screen Negative U Amphetamin/Meth Scrn Negative U Benzodiazepines Scrn Negative U Cocaine Metab Screen Negative U Marijuana (THC) Screen Negative Ethyl Alcohol < 3.0 08/21/24 08/21/24 08/22/24 17:35 20:31 02:33 WBC 30.2 H D RBC 3.68 L Hgb 11.0 L Hct 33.9 L MCV 92 MCH 29.9 MCHC 32.4 RDW Std Deviation 52.2 H Plt Count 163 D Neut % (Auto) 87 H Lymph % (Auto) 6 L [place] % (Auto) 6 Eos % (Auto) 0 Baso % (Auto) 0 Neut # (Auto) 26.3 H Lymph # (Auto) 1.7 [place] # (Auto) 1.8 H Eos # (Auto) 0.0 Baso # (Auto) 0.1 Immature Gran # (Auto) 0.36 H Absolute Nucleated RBC 0.00 Immature Gran % 1 H Nucleated RBC % 0 PT INR APTT Sodium 138 Potassium 4.7 Chloride 107 Carbon Dioxide 22.8 Anion Gap 8 BUN 40 H Creatinine 2.4 H Estim Creat Clear Calc 23.5 L eGFR 21 L BUN/Creatinine Ratio 17 Glucose [address] Glu mg/dL 169 H Hemoglobin A1c 7.5 H Calculated Osmolality 292 Lactic Acid 1.1 Calcium 8.7 Corrected Calcium 9.2 Phosphorus 3.8 Magnesium 1.7 Total Bilirubin 0.4 D AST 39 H ALT 8 L Alkaline Phosphatase 80 Ammonia Lactate Dehydrogenase Troponin I 0.158 H* 0.191 H* B-Natriuretic Peptide Total Protein 5.8 Albumin 3.4 D Globulin 2.4 Albumin/Globulin Ratio 1.4 Lipase Procalcitonin Ur Collection Type Urine Color Urine Clarity Urine pH Ur Specific [place] Urine Protein Urine Glucose (UA) Urine Ketones Urine Blood Urine Nitrite Urine Bilirubin Urine Urobilinogen (Auto) Ur Leukocyte Esterase Urine RBC Urine WBC Ur Squamous Epith Cells Urine Bacteria Urine Opiates Screen Urine Fentanyl Screen Acetaminophen Ur Barbiturates Screen U Amphetamin/Meth Scrn U Benzodiazepines Scrn U Cocaine Metab Screen U Marijuana (THC) Screen Ethyl Alcohol Quality Measures Quality Measures VTE prophylaxis Advance care planning discussed with:: patient Assessment & Plan Assessment Current Active Medications: Generic Name Dose Route Start Last Admin Trade Name Freq PRN Reason Stop Dose Admin Acetaminophen 650 mg 08/21/24 17:21 Acetaminophen 325 Mg Tablet PO 09/20/24 17:20 Q6H PRN Fever >100.4 or pain Albuterol/Ipratropium 3 ml 08/21/24 17:21 08/21/24 18:29 Albuterol/Ipratropium (Duoneb) Rt Fidelina 3 Ml Nebu INH 09/20/24 17:20 3 ml Q2HR PRN Administration SHORTNESS OF BREATH OR WHEEZE Apixaban 5 mg 08/21/24 21:00 08/22/24 08:35 Apixaban 2.5 Mg Tablet PO 09/20/24 20:59 5 mg BID SHANE Administration Carbidopa/Levodopa 1 tab 08/22/24 09:00 08/22/24 08:35 Carbidopa/Levodopa Cr 50/200 Tabcr PO 09/21/24 08:59 1 tab TID SHANE Administration Dextrose 25 ml 08/21/24 17:34 Dextrose 50%-Water Inj 50 Ml Syringe IV 09/20/24 17:33 Q15MIN PRN BG 50-70 responsive npo pt Dextrose 50 ml 08/21/24 17:34 Dextrose 50%-Water Inj 50 Ml Syringe IV 09/20/24 17:33 Q15MIN PRN BG <50 OR BG <70 & pt unresponsive Glucagon 1 mg 08/21/24 17:34 Glucagon Inj 1 Mg Vial IM Q15MIN PRN BG <70, and no IV access Piperacillin/Tazobactam/Dextrose 50 mls @ 12.5 mls/hr 08/22/24 06:00 08/22/24 05:44 Zosyn IV 08/29/24 05:59 12.5 mls/hr Q8HR SHANE Administration Sodium Chloride 1,000 mls @ 100 mls/hr 08/22/24 09:50 08/22/24 10:27 Ns IV 09/21/24 09:49 100 mls/hr .Q10H SHANE Administration Insulin Glargine 10 unit 08/22/24 09:00 08/22/24 08:35 Insulin Glargine (Lantus) 5 Unit/0.05 Ml (Per 5 Units) SC 09/21/24 08:59 10 unit QDAY SHANE Administration Insulin Human Lispro 0 unit 08/22/24 07:30 08/22/24 12:13 Insulin Lispro (Admelog) 1 Unit/0.01 Ml Unit SC 09/21/24 07:29 4 unit AC SHANE Administration Protocol Magnesium Hydroxide 30 ml 08/21/24 17:21 Milk Of Magnesia Susp 30 Ml Udc PO 09/20/24 17:20 QDAY PRN CONSTIPATION Protocol Ondansetron HCl 4 mg 08/21/24 17:21 Ondansetron Inj 2 Mg/Ml Inj 2 Ml IV 09/20/24 17:20 Q6H PRN NAUSEA OR VOMITING Protocol Pharmacy Consult 1 each 08/21/24 19:07 Pharmacy Renal Dose Adjustment 1 Ea XX 09/20/24 19:06 PRN PRN CONSULT Sennosides 1 tab 08/21/24 17:21 Senna Tablet PO 09/20/24 17:20 QDAY PRN constipation Protocol Plan 74 y/o F with PMHx significant for A-fib, sick sinus syndrome with pacemaker, HFpEF, COPD, insulin-dependent diabetes, Parkinson's, HTN presented to ED with chief complaint of altered mental status x 1 day, admitted for sepsis. #Acute encephalopathy, resolved #Sepsis secondary to UTI Patient presented with chief complaint of acute cephalopathy which resolved prior to treatment. Patient was found to be septic, UA indicating UTI as source. Patient vitals improving with 2 L bolus normal saline in the ED, received 1 dose Rocephin. Lactic acid 2.7 down to 1.1. Pro-Severo 13.8. Patient had leukocytosis 25.1, fever 102.5 improved with Tylenol. Patient received 1 L normal saline at 100 mL/h. Still appears dry, will give another liter. Urine culture and blood culture positive for GNR. Antibiotics broadened to Zosyn. -Telemetry -Zosyn 3.375 g IV 3 times daily (started 08/22) -IVF: Normal saline 100 mL/h x 1 L -Tylenol 650 mg p.o. every 6 hours as needed for fever pain -Monitor daily labs -Follow-up blood and urine cultures #ALLYSON on CKD, prerenal versus ATN Patient has history of CKD. Kidney function worse from baseline: BUN 34, creatinine 2.1, EGFR 24. Likely prerenal in the setting of dehydration and sepsis. Patient received 2 L bolus normal saline. -IVF as above -Avoid nephrotoxins -Monitor daily labs -Renally dose meds #HFpEF, patient history #A-fib #Troponinemia Patient has history of heart failure with preserved ejection fraction, A-fib. Home meds held in setting of sepsis with hypotension, except Eliquis. Patient troponin mildly elevated 0.22, peaked. -Home med: Eliquis p.o. 5 mg twice daily -Telemetry -Strict I's and O's -IVF as above, then reassess #COPD Patient has history of COPD controlled with outpatient medication. Patient has home O2, does not require to use continuously. Patient saturating well on 3 L via nasal cannula. Was able to be weaned off O2. -O2, titrate to maintain saturation greater than 88% -DuoNebs as needed #Insulin-dependent diabetes Patient has medical history of insulin-dependent diabetes. A1c 7.5% this visit. -Insulin sliding scale -Lantus 10 units daily #Parkinson's Patient has history of Parkinson's disease, well-controlled with carbidopa?levodopa. Not currently showing active symptoms. -Resume home carbidopa levodopa DVT prophylaxis: Eliquis GI prophylaxis: None Diet: Cardiac Lines: Peripheral IV Code status: Full code Plan of care discussed with senior resident Dr. Shah PGY?[address] Noble. Pierre Perea MD PGY-1 Attending Provider Attestation/Addendum I attest that I was physically present for the evaluation, physical examination, lab and imaging review of the patient with the residents. I discussed the case with the residents and agree with the findings and plans of care as documented above. At bedside today, patient is alert and oriented, able to answer questions and follow commands appropriately. Denies any new complaint. Saturating well on room air. Blood pressure continues to be soft, we will continue with judicious IV hydration. Patient grew gram-negative rods on her urine, preliminary blood cultures also show gram-negative rods, her WBC count has worsened slightly compared to yesterday, antibiotic coverage was broadened overnight to Zosyn. Bony Noble MD
--- NOTE | 2024-08-22 19:54 | PC.NURSE ---
SPOKE WITH DR. TORRES REGARDING PT'S CHRONIC BACK PAIN 02/08. BP 122/57. MD TO PLACE ORDERS FOR PAIN MANAGEMENT.
[2024-08-22] MEDS: HYDROcodone/APAP 5/325 TABLET 1 TAB PO (21:06)
[2024-08-23] VITALS (7 sets, daily range): BP systolic 100–156; BP diastolic 49–88; PULSE 60–75; RESP 17–23; TEMP 35.9–36.4; O2SAT 94–98; BMI 26.1
[2024-08-23] MEDS: SODIUM CHLORIDE 0.9% 1000 ML 1,000 ML 100 ML IV ×2 (05:19→15:19)
[2024-08-23] MEDS: PIPER/TAZO 3.375 GM 50 ML IV ×3 (05:19→21:11)
[2024-08-23] MEDS: CARBIDOPA/LEVODOPA CR 50/200 TABCR 1 TAB PO ×3 (05:19→21:11)
[2024-08-23 06:10] LABS: Basophils # (Auto) 0.1 Thou/mm3 (0.0-0.2); Basophils % (Auto) 0 % (0-2.5); Eosinophils % (Auto) 0 % (0-10); Hematocrit 30.3 % (36.0-46.0); Hemoglobin 9.9 g/dL (12.0-16.0); Immature Granulocytes % (Auto) 1 % (0-0); Immature Granulocytes Auto 0.13 Thou/mm3 (0.00-0.00); Lymphocytes # (Auto) 0.8 Thou/mm3 (1.0-4.8); Lymphocytes % (Auto) 5 % (10-50); Mean Corpuscular HGB Conc 32.7 g/dl (31.0-37.0); Mean Corpuscular Hemoglobin 29.9 pg (25.0-35.0); Mean Corpuscular Volume 92 fL (80-100); Monocytes % (Auto) 6 % (0-12); Neutrophils # (Auto) 15.2 Thou/mm3 (1.8-7.7); Neutrophils % (Auto) 88 % (37-80); Nucleated Red Blood Cell % 0 /100 WBC (0); Platelet Count 192 Thou/mm3 (140-440); RDW Standard Deviation 51.5 fL (36.4-46.3); Red Blood Count 3.31 Miln/mm3 (4.00-5.20); White Blood Count 17.2 Thou/mm3 (3.6-11.0)
[2024-08-23 06:39] LABS: Alanine Aminotransferase 8 U/L (10-49); Albumin, Serum 3.1 gm/dL (3.4-4.8); Albumin/Globulin Ratio 1.6 (1.2-2.2); Alkaline Phosphatase 77 U/L (46-116); Anion Gap 8 (7-16); Aspartate Amino Transferase 35 U/L (0-34); BUN/Creatinine Ratio 20 Ratio (12-20); Bilirubin,Total 0.8 mg/dL (0.3-1.2); Blood Urea Nitrogen 36 mg/dL (9-23); Calcium 8.4 mg/dL (8.3-10.6); Calcium (Corrected) 9.1 mg/dL (8.5-10.1); Carbon Dioxide 22.7 mMol/L (20.0-31.0); Chloride 107 mMol/L (98-107); Creatinine (Component) 1.8 mg/dL (0.6-1.3); Estimated Creatinine Clearance 31.1 mL/min (>60); Glucose 219 mg/dL (74-106); Magnesium 1.8 mg/dL (1.6-2.6); Osmolality,Calculated 290 (275-295); Phosphorous 2.3 mg/dL (2.4-5.1); Potassium 4.1 mMol/L (3.4-5.1); Sodium 138 mMol/L (136-145); Total Protein 5.1 gm/dL (5.7-8.2); eGFR 29 See Note
[2024-08-23] MEDS: INSULIN LISPRO (AdmeLOG) 1 UNIT/0.01 ML UNIT SC ×4 (07:54→21:09)
[2024-08-23] MEDS: ACETAMINOPHEN 325 MG TABLET 650 MG PO ×3 (08:44→20:30)
[2024-08-23] MEDS: APIXABAN 2.5 MG TABLET 5 MG PO ×2 (08:44→20:31)
[2024-08-23] MEDS: SOD PHOS ADDITIVE 30 MMOL in SODIUM CHLORIDE 0.9% 500 ML 500 ML 63.75 MMOL IV (08:47)
--- NOTE | 2024-08-23 09:45 | PC.SS ---
Delayed entry from 08-23-24: PLASTICS SEASONER OPERATOR conducted bedside contact with the patient conduct initial assessment and to discuss discharge planning. Patient confirmed demographic information. Patient is retired. Resides at home with spouse, Elvis Ryan . Patient does not utilize DME to assist with ambulation. Patient utilizes home oxygen. Patient describes the ability to complete ADL?s independently. Patient identified spouse, Elvis Ryan; as medical surrogate decision maker. PCP is Tequila Ames. Dr. Taylor is the patient?s small arms artillery repairer. Dr. Pitt is the patient?s event operations manager. Patient does not participate with dialysis. Patient utilizes [facility] for medication services. Discharge plan is for the patient to return home. Family will provide transportation on behalf of the patient. No discharge needs identified by the patient. No further intervention required at this time, psych social worker will be available to address any further concerns. Next of Kin: Elvis Ryan D/C Plan: Home
--- NOTE | 2024-08-23 13:18 | ESPR_ITS ---
<Statement entered by Samuel Shah MD - 08/23/24 14:34> I saw and examined the patient, and I agree with current management stated by Dr Keturah Mccray MD,PGY1. Plan of care was discussed with the attending physician and resident physician. Disclaimer: Despite multiple revisions, due to the dictation software being used, the document bellow may not be free of grammatical errors including phonetic/typographic errors. However, this does not deter from our commitment to providing health care in the patient's best interest in mind. Dr. Pablo MD, PGY 2 Documentation for date of: 08/23/24 Subjective Subjective Interval history: No overnight events. Patient seen and examined at bedside. Patient resting comfortably, tolerating oral diet well. Reports subjective improvement in all symptoms. Remained afebrile overnight. WBCs trending down, ALLYSON improving. Continue IV antibiotics. Urine culture speciated E. coli. Encourage oral hydration. Exam Vital Signs Temp Pulse Resp BP Pulse Ox O2 Del Method O2 Flow Rate 96.7 F L 60 20 106/55 L 95 Room Air 2 08/23/24 12:00 08/23/24 12:08/23/24 12:08/23/24 12:08/23/24 12:08/23/24 12:08/23/24 08:40 Narrative Exam PE: Gen: Well-developed and well-nourished. Elderly, ill-appearing. HEENT: NCAT, PERRLA, EOMI, MMM, anicteric conjunctivae. CVS: normal S1 and S2. RRR. No M/R/G. Resp: No rhonchi, rales, crackles. Mild wheezing in all lung french. Abd: soft, non-tender, non-distended. BS+ in all 4 quadrants. MSK: Good ROM in BUE & BLE. No edema or rash. Mild tremors, normal for patient. Neuro: CN II-XII grossly intact. Strength 5/5 in BUE & BLE. Alert and oriented x3. Psych: appropriate mood and affect. Objective Labs 08/24/24 05:37 08/24/24 05:37 Labs: Laboratory Results - last 24 hr 08/23/24 05:22 WBC 17.2 H D RBC 3.31 L Hgb 9.9 L Hct 30.3 L MCV 92 MCH 29.9 MCHC 32.7 RDW Std Deviation 51.5 H Plt Count 192 Neut % (Auto) 88 H Lymph % (Auto) 5 L [place] % (Auto) 6 Eos % (Auto) 0 Baso % (Auto) 0 Neut # (Auto) 15.2 H Lymph # (Auto) 0.8 L [place] # (Auto) 1.0 H Eos # (Auto) 0.0 Baso # (Auto) 0.1 Immature Gran # (Auto) 0.13 H Absolute Nucleated RBC 0.00 Immature Gran % 1 H Nucleated RBC % 0 Sodium 138 Potassium 4.1 D Chloride 107 Carbon Dioxide 22.7 Anion Gap 8 BUN 36 H Creatinine 1.8 H D Estim Creat Clear Calc 31.1 L eGFR 29 L BUN/Creatinine Ratio 20 Glucose 219 H Calculated Osmolality 290 Calcium 8.4 Corrected Calcium 9.1 Phosphorus 2.3 L Magnesium 1.8 Total Bilirubin 0.8 AST 35 H ALT 8 L Alkaline Phosphatase 77 Total Protein 5.1 L Albumin 3.1 L Globulin 2.0 L Albumin/Globulin Ratio 1.6 Quality Measures Quality Measures VTE prophylaxis Advance care planning discussed with:: patient Assessment & Plan Assessment Current Active Medications: Generic Name Dose Route Start Last Admin Trade Name Freq PRN Reason Stop Dose Admin Acetaminophen 650 mg 08/21/24 17:21 08/23/24 08:44 Acetaminophen 325 Mg Tablet PO 09/20/24 17:20 650 mg Q6H PRN Administration Fever >100.4 or pain Albuterol/Ipratropium 3 ml 08/21/24 17:21 08/21/24 18:29 Albuterol/Ipratropium (Duoneb) Rt Fidelina 3 Ml Nebu INH 09/20/24 17:20 3 ml Q2HR PRN Administration SHORTNESS OF BREATH OR WHEEZE Apixaban 5 mg 08/21/24 21:00 08/23/24 08:44 Apixaban 2.5 Mg Tablet PO 09/20/24 20:59 5 mg BID SHANE Administration Carbidopa/Levodopa 1 tab 08/22/24 09:00 08/23/24 05:19 Carbidopa/Levodopa Cr 50/200 Tabcr PO 09/21/24 08:59 1 tab TID SHANE Administration Dextrose 25 ml 08/21/24 17:34 Dextrose 50%-Water Inj 50 Ml Syringe IV 09/20/24 17:33 Q15MIN PRN BG 50-70 responsive npo pt Dextrose 50 ml 08/21/24 17:34 Dextrose 50%-Water Inj 50 Ml Syringe IV 09/20/24 17:33 Q15MIN PRN BG <50 OR BG <70 & pt unresponsive Glucagon 1 mg 08/21/24 17:34 Glucagon Inj 1 Mg Vial IM Q15MIN PRN BG <70, and no IV access Piperacillin/Tazobactam/Dextrose 50 mls @ 12.5 mls/hr 08/22/24 06:00 08/23/24 05:19 Zosyn IV 08/29/24 05:59 12.5 mls/hr Q8HR SHANE Administration Sodium Chloride 1,000 mls @ 100 mls/hr 08/22/24 09:50 08/23/24 05:19 Ns IV 09/21/24 09:49 100 mls/hr .Q10H SHANE Administration Sodium Phosphate 30 mmol/ 510 mls @ 63.75 mls/hr 08/23/24 08:00 08/23/24 08:47 Sodium Chloride IV 08/23/24 15:59 63.75 mls/hr X1 ONE Administration Insulin Glargine 15 unit 08/23/24 21:00 Insulin Glargine (Lantus) 5 Unit/0.05 Ml (Per 5 Units) SC 09/22/24 20:59 HS SHANE Insulin Human Lispro 0 unit 08/22/24 21:30 08/23/24 12:11 Insulin Lispro (Admelog) 1 Unit/0.01 Ml Unit SC 09/21/24 21:29 3 unit ACHS SHANE Administration Protocol Lidocaine 1 patch 08/22/24 14:45 Lidocaine 5% 1 Patch TOP 09/21/24 14:44 UD PRN PAIN Magnesium Hydroxide 30 ml 08/21/24 17:21 Milk Of Magnesia Susp 30 Ml Udc PO 09/20/24 17:20 QDAY PRN CONSTIPATION Protocol Ondansetron HCl 4 mg 08/21/24 17:21 Ondansetron Inj 2 Mg/Ml Inj 2 Ml IV 09/20/24 17:20 Q6H PRN NAUSEA OR VOMITING Protocol Pharmacy Consult 1 each 08/21/24 19:07 Pharmacy Renal Dose Adjustment 1 Ea XX 09/20/24 19:06 PRN PRN CONSULT Sennosides 1 tab 08/21/24 17:21 Senna Tablet PO 09/20/24 17:20 QDAY PRN constipation Protocol Plan 74 y/o F with PMHx significant for A-fib, sick sinus syndrome with pacemaker, HFpEF, COPD, insulin-dependent diabetes, Parkinson's, HTN presented to ED with chief complaint of altered mental status x 1 day, admitted for sepsis. #Acute encephalopathy, resolved #Sepsis, resolving #E. coli UTI #GNR bacteremia Patient presented with chief complaint of acute cephalopathy which resolved prior to treatment. Patient was found to be septic, UA indicating UTI as source. Patient vitals improving with 2 L bolus normal saline in the ED, received 1 dose Rocephin. Lactic acid 2.7 down to 1.1. Pro-Severo 13.8. Patient had leukocytosis 25.1, fever 102.5 improved with Tylenol. Patient received 1 L normal saline at 100 mL/h. Still appears dry, will give another liter. Urine culture and blood culture positive for GNR. Antibiotics broadened to Zosyn. Urine culture speciated E. coli. Repeat blood draw taken. -Telemetry -Zosyn 3.375 g IV 3 times daily (started 08/22) -Tylenol 650 mg p.o. every 6 hours as needed for fever pain -Monitor daily labs -Follow-up blood cultures #ALLYSON on CKD, prerenal versus ATN, improving Patient has history of CKD. Kidney function worse from baseline: BUN 34, creatinine 2.1, EGFR 24. Likely prerenal in the setting of dehydration and sepsis. Patient received 2 L bolus normal saline. ALLYSON improving with IVF. Continue to monitor. -Avoid nephrotoxins -Monitor daily labs -Renally dose meds #HFpEF, patient history #A-fib #Troponinemia Patient has history of heart failure with preserved ejection fraction, A-fib. Home meds held in setting of sepsis with hypotension, except Eliquis. Patient troponin mildly elevated 0.22, peaked. -Home med: Eliquis p.o. 5 mg twice daily -Telemetry -Strict I's and O's -IVF as above, then reassess #COPD Patient has history of COPD controlled with outpatient medication. Patient has home O2, does not require to use continuously. Patient saturating well on 3 L via nasal cannula. Was able to be weaned off O2. -O2, titrate to maintain saturation greater than 88% -DuoNebs as needed #Insulin-dependent diabetes Patient has medical history of insulin-dependent diabetes. A1c 7.5% this visit. Difficulty controlling patient's glucose, Lantus increased. -Insulin sliding scale -Lantus 15 units daily #Parkinson's Patient has history of Parkinson's disease, well-controlled with carbidopa?levodopa. Not currently showing active symptoms. -Resume home carbidopa levodopa DVT prophylaxis: Eliquis GI prophylaxis: None Diet: Cardiac, renal, carb consistent Lines: Peripheral IV Code status: Full code Plan of care discussed with senior resident Dr. Shah PGY?[address] Bell. Pierre Perea MD PGY-1 Attending Provider Attestation/Addendum I have examined the patient, reviewed labs and imaging findings, discussed the case with the resident(s), and reviewed entered orders. I agree with the plan of care as outlined in this note, with these additional summaries/recommendations: Patient seen at bedside. She reports she feels slightly worse today. Discussed with patient she had significant improvement in her leukocytosis today down to 17.2 from 38.2. Given the severity of patient's infection we will continue IV Zosyn for today for E. coli UTI and GNR bacteremia. Tylenol as needed for fever and headache. Blood pressure continues to remain soft and holding metoprolol. Continue Eliquis for atrial fibrillation. Continue Sinemet for Parkinson's disease. Replaced phosphorus. Continue insulin for diabetes mellitus type 2. A1c 7.5%. Repeat hematology and chemistry panel in AM. Dr. Bell
--- NOTE | 2024-08-23 15:23 | PC.NURSE ---
Michael, physical therapist working with patient. at bedside.
[2024-08-23] MEDS: INSULIN GLARGINE (Lantus) 5 UNIT/0.05 ML (PER 5 UNITS) 15 UNIT SC (21:10)
[2024-08-24] VITALS (8 sets, daily range): BP systolic 112–172; BP diastolic 52–78; PULSE 60–67; RESP 17–23; TEMP 36.3–37.1; O2SAT 93–100; BMI 26.1
[2024-08-24] MEDS: CARBIDOPA/LEVODOPA CR 50/200 TABCR 1 TAB PO ×3 (05:10→21:42)
[2024-08-24] MEDS: PIPER/TAZO 3.375 GM 50 ML IV ×3 (05:10→22:00)
[2024-08-24 06:16] LABS: Basophils # (Auto) 0.1 Thou/mm3 (0.0-0.2); Basophils % (Auto) 0 % (0-2.5); Eosinophils # (Auto) 0.1 Thou/mm3 (0.0-0.5); Eosinophils % (Auto) 1 % (0-10); Hematocrit 29.2 % (36.0-46.0); Hemoglobin 9.6 g/dL (12.0-16.0); Immature Granulocytes % (Auto) 1 % (0-0); Immature Granulocytes Auto 0.09 Thou/mm3 (0.00-0.00); Lymphocytes # (Auto) 1.1 Thou/mm3 (1.0-4.8); Lymphocytes % (Auto) 8 % (10-50); Mean Corpuscular HGB Conc 32.9 g/dl (31.0-37.0); Mean Corpuscular Hemoglobin 29.7 pg (25.0-35.0); Mean Corpuscular Volume 90 fL (80-100); Monocytes # (Auto) 0.9 Thou/mm3 (0.0-0.8); Monocytes % (Auto) 7 % (0-12); Neutrophils # (Auto) 10.7 Thou/mm3 (1.8-7.7); Neutrophils % (Auto) 83 % (37-80); Nucleated Red Blood Cell % 0 /100 WBC (0); Platelet Count 136 Thou/mm3 (140-440); Red Blood Count 3.23 Miln/mm3 (4.00-5.20); White Blood Count 12.9 Thou/mm3 (3.6-11.0)
[2024-08-24 06:50] LABS: Alanine Aminotransferase < 7 U/L (10-49); Albumin, Serum 3.3 gm/dL (3.4-4.8); Albumin/Globulin Ratio 1.5 (1.2-2.2); Alkaline Phosphatase 84 U/L (46-116); Anion Gap 8 (7-16); Aspartate Amino Transferase 27 U/L (0-34); BUN/Creatinine Ratio 17 Ratio (12-20); Bilirubin,Total 0.7 mg/dL (0.3-1.2); Blood Urea Nitrogen 22 mg/dL (9-23); Calcium 8.8 mg/dL (8.3-10.6); Calcium (Corrected) 9.4 mg/dL (8.5-10.1); Carbon Dioxide 22.7 mMol/L (20.0-31.0); Chloride 111 mMol/L (98-107); Creatinine (Component) 1.3 mg/dL (0.6-1.3); Estimated Creatinine Clearance 43.1 mL/min (>60); Globulin 2.2 gm/dL (2.3-3.5); Glucose 214 mg/dL (74-106); Magnesium 1.9 mg/dL (1.6-2.6); Osmolality,Calculated 292 (275-295); Phosphorous 2.9 mg/dL (2.4-5.1); Potassium 4.8 mMol/L (3.4-5.1); Sodium 142 mMol/L (136-145); Total Protein 5.5 gm/dL (5.7-8.2); eGFR 43 See Note
[2024-08-24] MEDS: INSULIN LISPRO (AdmeLOG) 1 UNIT/0.01 ML UNIT SC ×4 (07:40→21:56)
[2024-08-24] MEDS: SODIUM CHLORIDE 0.9% 1000 ML 1,000 ML 100 ML IV (07:44)
[2024-08-24] MEDS: APIXABAN 2.5 MG TABLET 5 MG PO ×2 (09:26→21:42)
--- NOTE | 2024-08-24 14:20 | ESPR_ITS ---
<Statement entered by Samuel Shah MD - 08/24/24 15:26> Patient was seen and examined at the bedside this morning. Patient has been improving from past couple of days. Patient does have gram-negative monserrat bacteremia however her repeat blood cultures came negative for first 24 hours. We are continuing Zosyn for now. First blood cultures grew klyeura. White count improving hemoglobin stable. Platelet dropped today to 136. Anticipating discharge tomorrow. Likely discharge on Augmentin p.o. PT recommended home health. Blood pressure was elevated this morning therefore fluids were discontinued. All labs and orders were reviewed. I saw and examined the patient, and I agree with current management stated by Dr Dr Brit MD,PGY1. Plan of care was discussed with the attending physician and resident physician. Disclaimer: Despite multiple revisions, due to the dictation software being used, the document bellow may not be free of grammatical errors including phonetic/typographic errors. However, this does not deter from our commitment to providing health care in the patient's best interest in mind. Dr. Pablo MD, PGY 2 Documentation for date of: 08/24/24 Subjective Subjective Interval history: No overnight events. Patient seen and examined at bedside. Patient resting comfortably, reports great improvement in all symptoms. Denies shortness of breath, fever, chills, chest pain, nausea, vomiting. Repeat blood cultures pending. Continue IV antibiotics, plan to discharge on Augmentin. Exam Vital Signs Temp Pulse Resp BP Pulse Ox O2 Del Method O2 Flow Rate 98.1 F 67 19 172/72 H 93 L Room Air 3 08/24/24 14:08/24/24 14:08/24/24 14:08/24/24 14:08/24/24 14:08/24/24 14:08/24/24 09:27 Narrative Exam PE: Gen: Well-developed and well-nourished. Elderly, ill-appearing. HEENT: NCAT, PERRLA, EOMI, MMM, anicteric conjunctivae. CVS: normal S1 and S2. RRR. No M/R/G. Resp: No rhonchi, rales, crackles. Mild wheezing in all lung french. Abd: soft, non-tender, non-distended. BS+ in all 4 quadrants. MSK: Good ROM in BUE & BLE. No edema or rash. Mild tremors, normal for patient. Neuro: CN II-XII grossly intact. Strength 5/5 in BUE & BLE. Alert and oriented x3. Psych: appropriate mood and affect. Objective Labs 08/25/24 05:42 08/25/24 05:42 Labs: Laboratory Results - last 24 hr 08/24/24 05:37 WBC 12.9 H RBC 3.23 L Hgb 9.6 L Hct 29.2 L MCV 90 MCH 29.7 MCHC 32.9 RDW Std Deviation 50.0 H Plt Count 136 L D Neut % (Auto) 83 H Lymph % (Auto) 8 L [place] % (Auto) 7 Eos % (Auto) 1 Baso % (Auto) 0 Neut # (Auto) 10.7 H Lymph # (Auto) 1.1 [place] # (Auto) 0.9 H Eos # (Auto) 0.1 Baso # (Auto) 0.1 Immature Gran # (Auto) 0.09 H Absolute Nucleated RBC 0.00 Immature Gran % 1 H Nucleated RBC % 0 Sodium 142 Potassium 4.8 D Chloride 111 H Carbon Dioxide 22.7 Anion Gap 8 BUN 22 Creatinine 1.3 D Estim Creat Clear Calc 43.1 L eGFR 43 L BUN/Creatinine Ratio 17 Glucose 214 H Calculated Osmolality 292 Calcium 8.8 Corrected Calcium 9.4 Phosphorus 2.9 Magnesium 1.9 Total Bilirubin 0.7 AST 27 ALT < 7 L Alkaline Phosphatase 84 Total Protein 5.5 L Albumin 3.3 L Globulin 2.2 L Albumin/Globulin Ratio 1.5 Quality Measures Quality Measures VTE prophylaxis Advance care planning discussed with:: other Assessment & Plan Assessment Current Active Medications: Generic Name Dose Route Start Last Admin Trade Name Freq PRN Reason Stop Dose Admin Acetaminophen 650 mg 08/21/24 17:21 08/23/24 15:19 Acetaminophen 325 Mg Tablet PO 09/20/24 17:20 650 mg Q6H PRN Administration Fever >100.4 or pain Albuterol/Ipratropium 3 ml 08/21/24 17:21 08/21/24 18:29 Albuterol/Ipratropium (Duoneb) Rt Fidelina 3 Ml Nebu INH 09/20/24 17:20 3 ml Q2HR PRN Administration SHORTNESS OF BREATH OR WHEEZE Apixaban 5 mg 08/21/24 21:00 08/24/24 09:26 Apixaban 2.5 Mg Tablet PO 09/20/24 20:59 5 mg BID SHANE Administration Carbidopa/Levodopa 1 tab 08/22/24 09:00 08/24/24 13:32 Carbidopa/Levodopa Cr 50/200 Tabcr PO 09/21/24 08:59 1 tab TID SHANE Administration Dextrose 25 ml 08/21/24 17:34 Dextrose 50%-Water Inj 50 Ml Syringe IV 09/20/24 17:33 Q15MIN PRN BG 50-70 responsive npo pt Dextrose 50 ml 08/21/24 17:34 Dextrose 50%-Water Inj 50 Ml Syringe IV 09/20/24 17:33 Q15MIN PRN BG <50 OR BG <70 & pt unresponsive Glucagon 1 mg 08/21/24 17:34 Glucagon Inj 1 Mg Vial IM Q15MIN PRN BG <70, and no IV access Piperacillin/Tazobactam/Dextrose 50 mls @ 12.5 mls/hr 08/22/24 06:00 08/24/24 05:10 Zosyn IV 08/29/24 05:59 12.5 mls/hr Q8HR SHANE Administration Sodium Chloride 1,000 mls @ 100 mls/hr 08/22/24 09:50 08/24/24 14:14 Ns IV 09/21/24 09:49 Not Given .Q10H SHANE Insulin Glargine 15 unit 08/23/24 21:00 08/23/24 21:10 Insulin Glargine (Lantus) 5 Unit/0.05 Ml (Per 5 Units) SC 09/22/24 20:59 15 unit HS SHANE Administration Insulin Human Lispro 0 unit 08/22/24 21:30 08/24/24 11:37 Insulin Lispro (Admelog) 1 Unit/0.01 Ml Unit SC 09/21/24 21:29 3 unit ACHS SHANE Administration Protocol Lidocaine 1 patch 08/22/24 14:45 Lidocaine 5% 1 Patch TOP 09/21/24 14:44 UD PRN PAIN Protocol Magnesium Hydroxide 30 ml 08/21/24 17:21 Milk Of Magnesia Susp 30 Ml Udc PO 09/20/24 17:20 QDAY PRN CONSTIPATION Protocol Ondansetron HCl 4 mg 08/21/24 17:21 Ondansetron Inj 2 Mg/Ml Inj 2 Ml IV 09/20/24 17:20 Q6H PRN NAUSEA OR VOMITING Protocol Pharmacy Consult 1 each 08/21/24 19:07 Pharmacy Renal Dose Adjustment 1 Ea XX 09/20/24 19:06 PRN PRN CONSULT Sennosides 1 tab 08/21/24 17:21 Senna Tablet PO 09/20/24 17:20 QDAY PRN constipation Protocol Plan 74 y/o F with PMHx significant for A-fib, sick sinus syndrome with pacemaker, HFpEF, COPD, insulin-dependent diabetes, Parkinson's, HTN presented to ED with chief complaint of altered mental status x 1 day, admitted for sepsis. #Acute encephalopathy, resolved #Sepsis, resolving #E. coli UTI #GNR bacteremia Patient presented with chief complaint of acute cephalopathy which resolved prior to treatment. Patient was found to be septic, UA indicating UTI as source. Patient vitals improving with 2 L bolus normal saline in the ED, received 1 dose Rocephin. Lactic acid 2.7 down to 1.1. Pro-Severo 13.8. Patient had leukocytosis 25.1, fever 102.5 improved with Tylenol. Patient received 1 L normal saline at 100 mL/h. Still appears dry, will give another liter. Urine culture and blood culture positive for GNR. Antibiotics broadened to Zosyn. Urine culture speciated E. coli. Repeat blood draw taken. Initial blood culture speciated Kluyvera. -Zosyn 3.375 g IV 3 times daily (started 08/22) -Tylenol 650 mg p.o. every 6 hours as needed for fever pain -Monitor daily labs -Follow-up blood cultures #ALLYSON on CKD, prerenal versus ATN, improving Patient has history of CKD. Kidney function worse from baseline: BUN 34, creatinine 2.1, EGFR 24. Likely prerenal in the setting of dehydration and sepsis. Patient received 2 L bolus normal saline. ALLYSON improving with IVF. Continue to monitor. -Avoid nephrotoxins -Monitor daily labs -Renally dose meds #HFpEF, patient history #A-fib #Troponinemia Patient has history of heart failure with preserved ejection fraction, A-fib. Home meds held in setting of sepsis with hypotension, except Eliquis. Patient troponin mildly elevated 0.22, peaked. -Home med: Eliquis p.o. 5 mg twice daily -Strict I's and O's #COPD Patient has history of COPD controlled with outpatient medication. Patient has home O2, does not require to use continuously. Patient saturating well on 3 L via nasal cannula. Was able to be weaned off O2. -O2, titrate to maintain saturation greater than 88% -DuoNebs as needed #Insulin-dependent diabetes Patient has medical history of insulin-dependent diabetes. A1c 7.5% this visit. Difficulty controlling patient's glucose, Lantus increased. -Insulin sliding scale -Lantus 15 units daily #Parkinson's Patient has history of Parkinson's disease, well-controlled with carbidopa?levodopa. Not currently showing active symptoms. -Resume home carbidopa levodopa DVT prophylaxis: Eliquis GI prophylaxis: None Diet: Cardiac, renal, carb consistent Lines: Peripheral IV Code status: Full code Plan of care discussed with senior resident Dr. Shah PGY?[address] Bell. Pierre Perea MD PGY-1 Attending Provider Attestation/Addendum I have examined the patient, reviewed labs and imaging findings, discussed the case with the resident(s), and reviewed entered orders. I agree with the plan of care as outlined in this note, with these additional summaries/recommendations: Patient seen at bedside. No acute overnight events. Discussed with patient that she will remain hospitalized for IV antibiotics for E. coli urinary tract infection and GNR bacteremia. Blood cultures grew Kluyvera ascorbata. Repeat blood cultures pending. Leukocytosis continues to improve. Patient was found to have ALLYSON on CKD which responded to IV fluids. Creatinine now 1.3 and we will DC fluids. Continue Eliquis for history of atrial fibrillation. Continue breathing treatments as needed for COPD. Continue basal and bolus insulin for diabetes mellitus type 2. A1c 7.5%. Continue carbidopa/levodopa for PD. Repeat chemistry and hematology panel in AM. Anticipate discharge in the next [address] Bell
--- NOTE | 2024-08-24 15:17 | PC.SS ---
Rounding Note: Plan is for the patient to discharge home tomorrow with home health.
--- NOTE | 2024-08-24 16:31 | PC.PT ---
Patient will be dc from PT services secondary to patient is I without AD. No further needs at this time.
[2024-08-24] MEDS: INSULIN GLARGINE (Lantus) 5 UNIT/0.05 ML (PER 5 UNITS) 15 UNIT SC (21:57)
[2024-08-25] MEDS: CARBIDOPA/LEVODOPA CR 50/200 TABCR 1 TAB PO ×2 (05:33→14:00)
[2024-08-25] MEDS: PIPER/TAZO 3.375 GM 50 ML IV ×2 (05:37→14:03)
[2024-08-25 06:00] VITALS: BP 131/63; PULSE 60; RESP 17; TEMP 36.8; O2SAT 93
[2024-08-25 06:07] LABS: Basophils # (Auto) 0.1 Thou/mm3 (0.0-0.2); Basophils % (Auto) 1 % (0-2.5); Eosinophils # (Auto) 0.2 Thou/mm3 (0.0-0.5); Eosinophils % (Auto) 2 % (0-10); Hemoglobin 9.6 g/dL (12.0-16.0); Immature Granulocytes % (Auto) 1 % (0-0); Lymphocytes # (Auto) 1.3 Thou/mm3 (1.0-4.8); Lymphocytes % (Auto) 13 % (10-50); Mean Corpuscular HGB Conc 33.1 g/dl (31.0-37.0); Mean Corpuscular Hemoglobin 29.6 pg (25.0-35.0); Mean Corpuscular Volume 90 fL (80-100); Monocytes # (Auto) 0.9 Thou/mm3 (0.0-0.8); Monocytes % (Auto) 9 % (0-12); Neutrophils # (Auto) 7.6 Thou/mm3 (1.8-7.7); Neutrophils % (Auto) 75 % (37-80); Nucleated Red Blood Cell % 0 /100 WBC (0); Platelet Count 141 Thou/mm3 (140-440); RDW Standard Deviation 48.9 fL (36.4-46.3); Red Blood Count 3.24 Miln/mm3 (4.00-5.20); White Blood Count 10.1 Thou/mm3 (3.6-11.0)
[2024-08-25 07:05] LABS: Alanine Aminotransferase < 7 U/L (10-49); Albumin, Serum 3.3 gm/dL (3.4-4.8); Albumin/Globulin Ratio 1.4 (1.2-2.2); Alkaline Phosphatase 91 U/L (46-116); Anion Gap 8 (7-16); Aspartate Amino Transferase 21 U/L (0-34); BUN/Creatinine Ratio 14 Ratio (12-20); Bilirubin,Total 0.7 mg/dL (0.3-1.2); Blood Urea Nitrogen 17 mg/dL (9-23); Calcium 8.8 mg/dL (8.3-10.6); Calcium (Corrected) 9.4 mg/dL (8.5-10.1); Carbon Dioxide 22.2 mMol/L (20.0-31.0); Chloride 111 mMol/L (98-107); Creatinine (Component) 1.2 mg/dL (0.6-1.3); Globulin 2.3 gm/dL (2.3-3.5); Glucose 185 mg/dL (74-106); Magnesium 1.8 mg/dL (1.6-2.6); Osmolality,Calculated 287 (275-295); Phosphorous 2.1 mg/dL (2.4-5.1); Potassium 3.3 mMol/L (3.4-5.1); Sodium 141 mMol/L (136-145); Total Protein 5.6 gm/dL (5.7-8.2); eGFR 48 See Note
[2024-08-25] MEDS: APIXABAN 2.5 MG TABLET 5 MG PO (08:22)
[2024-08-25] MEDS: INSULIN LISPRO (AdmeLOG) 1 UNIT/0.01 ML UNIT SC ×2 (08:23→12:07)
[2024-08-25] MEDS: POTASSIUM PHOS 22.5 MMOL in SODIUM CHLORIDE 0.9% 500 ML 500 ML 82.778 MMOL IV (09:13)
--- NOTE | 2024-08-25 10:59 | PC.NURSE ---
Potassium infusion will be completed at 1521. Per doctor Wasiq, discharge patient once infusion is completed.
[2024-08-25 11:03] VITALS: PULSE 60; RESP 18; O2SAT 94
[2024-08-25] MEDS: ACETAMINOPHEN 325 MG TABLET 650 MG PO (11:37)
[2024-08-25 11:42] VITALS: BP 170/74; PULSE 60; RESP 16; TEMP 36.7; O2SAT 95
--- NOTE | 2024-08-25 13:38 | ESDS_ITS ---
<Statement entered by Samuel Shah MD - 08/25/24 14:32> I saw and examined the patient, and I agree with current management stated by Dr Brit MD,PGY1. Plan of care was discussed with the attending physician and resident physician. Disclaimer: Despite multiple revisions, due to the dictation software being used, the document bellow may not be free of grammatical errors including phonetic/typographic errors. However, this does not deter from our commitment to providing health care in the patient's best interest in mind. Dr. Pablo MD, PGY 2 Planned Discharge Date 08/25/24 DS: Providers Provider Date of admission: 08/21/24 17:21 Primary care physician: Tequila Ha MD Admitting Provider: Bony Noble MD Attending Provider on Admission: Narinder Bell MD Consults: 08/23/24 09:51 Referral Physical Therapy Routine Comment: Physician Instructions: Attending Provider on DC: Narinder Bell MD Discharging Provider: Pierre Perea MD DS: Diagnosis Problem List Completed Was Problem List Reviewed/Reconciled?: Yes Hospital Course Hospital Course Hospital course: 74 y/o F with PMHx significant for A-fib, sick sinus syndrome with pacemaker, HFpEF, COPD, insulin-dependent diabetes, Parkinson's, HTN presented to ED with chief complaint of altered mental status x 1 day. Patient was in her usual state of health until approximately 11 AM day of admission, when she became weak, confused, disoriented. Condition self resolved upon arrival to ED. Patient endorsed mild shortness of breath. Patient denied fever, chills, chest pain, nausea, vomiting, dysuria. Labs significant for: WBC 25.1, BUN 34, creatinine 2.1, EGFR 24, lactic acid 2.7, troponin 0.22, Pro-Severo 13.8. UA pos itive leukocyte esterase, WBC 2700. Imaging significant for: Chest x-ray showing bronchitis pattern. Patient received a liter bolus normal saline and 1 g Rocephin in the ED. Patient was initially hypotensive with MAP down to 50, improved with fluid bolus. Patient admitted for sepsis secondary to UTI. Patient showed clinical improvement during hospital stay. Blood cultures +2/2 for Kluyvera ascorbata, repeat cultures negative. Patient medically cleared and stable for discharge. Discharge planning: You have been started on the following medications: -Augmentin 875 twice daily for 6 days Gabapentin 300 mg 3 times daily has been changed to gabapentin which milligrams 3 times daily Lasix has been held Please continue all other medications as previously prescribed Please follow-up with PCP in 1-2 weeks Please return to ED if you have new or worsening symptoms, including new fevers, weakness, altered mental status. Diagnoses: #Acute encephalopathy, resolved #Sepsis, resolved #E. coli UTI #GNR bacteremia #ALLYSON on CKD, prerenal versus ATN, improving #HFpEF, patient history #A-fib #Troponinemia #COPD #Insulin-dependent diabetes #Parkinson's Plan of care discussed with senior resident Dr. Shah PGY?[address] Bell. Pierre Perea MD PGY?1 Time Spent with Patient Time attestation: Total time spent providing and/or coordinating discharge services: Exam Vital Signs Temp Pulse Resp BP Pulse Ox O2 Del Method O2 Flow Rate 98.0 F 60 16 170/74 H 95 Room Air 3 08/25/24 11:42 08/25/24 11:42 08/25/24 11:42 08/25/24 11:42 08/25/24 11:42 08/25/24 11:42 08/24/24 09:27 Narrative Exam PE: Gen: Well-developed and well-nourished. Elderly, ill-appearing. HEENT: NCAT, PERRLA, EOMI, MMM, anicteric conjunctivae. CVS: normal S1 and S2. RRR. No M/R/G. Resp: No rhonchi, rales, crackles. Mild wheezing in all lung french. Abd: soft, non-tender, non-distended. BS+ in all 4 quadrants. MSK: Good ROM in BUE & BLE. No edema or rash. Mild tremors, normal for patient. Neuro: CN II-XII grossly intact. Strength 5/5 in BUE & BLE. Alert and oriented x3. Psych: appropriate mood and affect. Discharge Plan Plan Patient Disposition: HOME (Self Care) Patient condition on transfer: Stable Care Plan Goals: You have been started on the following medications: -Augmentin 875 twice daily for 6 days Gabapentin 300 mg 3 times daily has been changed to gabapentin which milligrams 3 times daily Lasix has been held Please continue all other medications as previously prescribed Please follow-up with PCP in 1-2 weeks Please return to ED if you have new or worsening symptoms, including new fevers, weakness, altered mental status. Prescriptions/Referrals Prescriptions/Med Rec: New amoxicillin-pot clavulanate 875-125 mg tablet 1 tab PO BID 10 Days Qty: 20 0RF gabapentin 100 mg capsule 100 mg PO TID Qty: 30 0RF insulin degludec [Tresiba FlexTouch U-100] 100 unit/mL (3 mL) insulin pen 50 unit subcut QPM Qty: 15 0RF Baqsimi 3 mg/actuation spray,non-aerosol 3 mg intranasal QDAY PRN (Reason: hypoglycemia) Qty: 2 0RF Continued sennosides [senna] 8.6 mg tablet 8.6 mg PO HS Patient Comments: TAKE 1 TO 2 TABLETS BY MOUTH AT BEDTIME NEEDED Rx Instructions: 1-2 times per day Eliquis 5 mg tablet 5 mg PO BID Patient Comments: TAKE 1 TABLET BY MOUTH TWICE DAILY metoprolol succinate 100 mg tablet extended release 24 hr 100 mg PO DAILY Patient Comments: TAKE 1 TABLET BY MOUTH DAILY carbidopa-levodopa 50-200 mg tablet extended release 1 tab PO TID hydrocodone-acetaminophen 7.5-325 mg tablet 0.5 tab PO Q6H PRN (Reason: severe back pain) Patient Comments: TAKE 1/2 TABLET BY MOUTH EVERY 6 HOURS NEEDED FOR SEVERE BACK PAIN Centrum 18-400 mg-mcg Tablet 1 tab PO QDAY Held furosemide [Lasix] 40 MG tablet 40 mg PO QDAY Qty: 0 Hold Instructions: Resume on 08/24/24. Hold until your see your senior benefits analyst Discontinued gabapentin 300 mg capsule 300 mg TID Patient Comments: TAKE 2 CAPSULES BY MOUTH THREE TIMES DAILY insulin degludec [Tresiba FlexTouch U-100] 100 unit/mL (3 mL) insulin pen 50 unit SUBCUT QDAY Patient Comments: INJECT 50 UNITS UNDER THE SKIN EVERY DAY Referrals: Tequila Ha MD [Primary Care Provider] - Tamie Harris MD [Physician] - Patient/Caregiver Discharge Instructions Education Materials: Urinary Tract Infections in Women, Understanding Urinary Tract ... Print Language: Macedonian Stand Alone Forms: Shana Award Info., Patient Portal Info Letter Discharge Order Discharge Orders: Discharge (Routine); Ordered 08/25/24 Ordered By: Samuel Shah Quality Discharge Quality Measures VTE prophylaxis MD Attestestation MD Attestation I have examined the patient, reviewed labs and imaging findings, discussed the case with the resident(s), and reviewed entered orders. I agree with the plan of care as outlined in this note. Dr. Bell
[2024-08-25 14:00] VITALS: BP 156/70
[2024-08-25 15:14] VITALS: BP 156/70; PULSE 60
[2024-08-25] MEDS: METOPROLOL SUCCINATE XL 25 MG TABCR 100 MG PO (15:14)
== END 2024-08-25 16:01 | disposition home or self-care (01) | DRG 871 ==
LOC: SERX 16:27 → SERHOLD 18:23 → S2NX 18:52 → S3EX 08-24 13:55
PROVIDERS: Nurse Practitioner Primary Care; Registered Nurse General Practice; Admitting Provider Student in an Organized Health Care Education/Training Program; Emergency Provider Emergency Medicine; PCP Internal Medicine; Visit Provider Student in an Organized Health Care Education/Training Program
DX: A41.50 Gram-negative sepsis, unspecified (principal); G93.41 Metabolic encephalopathy; N39.0 Urinary tract infection, site not specified; I13.0 Hypertensive heart and chronic kidney disease with heart failure and stage 1 through stage 4 chronic kidney disease, or unspecified chronic kidney disease; N17.9 Acute kidney failure, unspecified; I50.32 Chronic diastolic (congestive) heart failure; E87.20 Acidosis, unspecified; E86.0 Dehydration; B96.20 Unspecified Escherichia coli [E. coli] as the cause of diseases classified elsewhere; G20.A1 Parkinson's disease without dyskinesia, without mention of fluctuations; E03.9 Hypothyroidism, unspecified; J44.9 Chronic obstructive pulmonary disease, unspecified; I95.9 Hypotension, unspecified; I48.91 Unspecified atrial fibrillation; E11.22 Type 2 diabetes mellitus with diabetic chronic kidney disease; N18.9 Chronic kidney disease, unspecified; R65.20 Severe sepsis without septic shock; I49.5 Sick sinus syndrome; Z90.49 Acquired absence of other specified parts of digestive tract; Z95.0 Presence of cardiac pacemaker; Z90.710 Acquired absence of both cervix and uterus; Z79.4 Long term (current) use of insulin; Z79.899 Other long term (current) drug therapy; Z79.01 Long term (current) use of anticoagulants
CPT/HCPCS: 36415; 70450; 71045; 80053; 80307; 80320; 80329; 81001; 82140; 83036; 83605; 83615; 83690; 83735; 83880; 84100; 84145; 84484; 85025; 85610; 85730; 87040; 87077; 87086; 87186; 87400; 87811; 93005; 94640; 96365; 97162; 99285; A9270; J0696; J1815; J2543; J7030; J7040; G0480

== ENCOUNTER → 2024-10-06 | Outpatient (CLI) | payer MEDICARE, OTHER, SELFPAY ==
[2024-10-06 10:24] LABS: Basophils # (Auto) 0.1 Thou/mm3 (0.0-0.2); Basophils % (Auto) 1 % (0-2.5); Eosinophils # (Auto) 0.2 Thou/mm3 (0.0-0.5); Eosinophils % (Auto) 2 % (0-10); Hematocrit 40.7 % (36.0-46.0); Hemoglobin 12.9 g/dL (12.0-16.0); Immature Granulocytes % (Auto) 0 % (0-0); Immature Granulocytes Auto 0.04 Thou/mm3 (0.00-0.00); Lymphocytes # (Auto) 2.4 Thou/mm3 (1.0-4.8); Lymphocytes % (Auto) 23 % (10-50); Mean Corpuscular HGB Conc 31.7 g/dl (31.0-37.0); Mean Corpuscular Hemoglobin 29.3 pg (25.0-35.0); Mean Corpuscular Volume 93 fL (80-100); Monocytes # (Auto) 0.7 Thou/mm3 (0.0-0.8); Monocytes % (Auto) 7 % (0-12); Neutrophils # (Auto) 6.9 Thou/mm3 (1.8-7.7); Neutrophils % (Auto) 67 % (37-80); Nucleated Red Blood Cell % 0 /100 WBC (0); Platelet Count 245 Thou/mm3 (140-440); White Blood Count 10.3 Thou/mm3 (3.6-11.0)
[2024-10-06 10:41] LABS: Glucose Estimated Average 151 mg/dL (80-131); Hemoglobin A1C 6.9 % Hgb (4.8-6.0)
[2024-10-06 10:59] LABS: Alanine Aminotransferase < 7 U/L (10-49); Albumin/Globulin Ratio 1.3 (1.2-2.2); Alkaline Phosphatase 96 U/L (46-116); Anion Gap 7 (7-16); Aspartate Amino Transferase 32 U/L (0-34); BUN/Creatinine Ratio 21 Ratio (12-20); Bilirubin,Total 0.5 mg/dL (0.3-1.2); Blood Urea Nitrogen 25 mg/dL (9-23); Calcium 9.6 mg/dL (8.3-10.6); Calcium (Corrected) 9.6 mg/dL (8.5-10.1); Carbon Dioxide 30.9 mMol/L (20.0-31.0); Cardiac Risk Estimate 3.1 RATIO (3.7-5.6); Chloride 101 mMol/L (98-107); Cholesterol 213 mg/dL (132-200); Creatinine (Component) 1.2 mg/dL (0.6-1.3); Free T4 (Free Thyroxine) 1.41 ng/dL (0.89-1.76); Glucose 148 mg/dL (74-106); HDL Cholesterol 68 mg/dL (40-60); LDL Cholesterol,Calculated 116 mg/dL (0-130); Osmolality,Calculated 284 (275-295); Potassium 4.5 mMol/L (3.4-5.1); Sodium 139 mMol/L (136-145); Thyroid Stimulating Hormone 2.96 uIU/mL (0.55-4.78); Triglycerides 143 mg/dL (30-150); eGFR 48 See Note
[2024-10-06 11:03] LABS: Collection Type, Urine Clean Catch; Squamous Epithelial Cell,Urine 0 /hpf (0-5)
[2024-10-06 11:36] LABS: Bacteria,Urine Rare; Bilirubin,Urine Negative (Negative); Blood,Urine Negative (Negative); Clarity,Urine Clear (Clear/Hazy); Color,Urine Colorless (Lt Yel-Yel); Creatinine MALB Rnd Ur < 13 mg/dL (30-125); Culture Indicated,Urine Not Indicated; Glucose, Urine Negative (Negative); Ketones,Urine Negative (Negative); Leukocyte Esterase,Urine Negative (Negative); Microalbumin Creat Ratio 46 mg/gCrea (<30); Microalbumin, Random Urine 6 mg/L (0-300); Nitrite,Urine Negative (Negative); PH,Urine 6.5 (5.0-7.0); Protein,Urine Negative (Neg - Trace); RBC,Urine 1 /hpf (0-3); Specific Gravity,Urine 1.007 (1.001-1.035); Urobilinogen,Urine Negative mg/dL (0.0-1.0); WBC,Urine < 1 /hpf (0-5)
== END | disposition home or self-care (01) ==
LOC: COPL 09:31
PROVIDERS: PCP Internal Medicine; Referring Provider Internal Medicine; Visit Provider Internal Medicine
DX: I10 Essential (primary) hypertension (principal); E11.65 Type 2 diabetes mellitus with hyperglycemia
CPT/HCPCS: 36415; 80053; 80061; 81001; 82043; 82570; 83036; 84439; 84443; 85025

== ENCOUNTER → 2024-12-01 | Outpatient (CLI) | payer MEDICARE, OTHER, SELFPAY ==
[2024-12-01 10:10] LABS: Collection Type, Urine Clean Catch; Squamous Epithelial Cell,Urine 0 /hpf (0-5)
[2024-12-01 10:32] LABS: Basophils # (Auto) 0.1 Thou/mm3 (0.0-0.2); Basophils % (Auto) 1 % (0-2.5); Eosinophils # (Auto) 0.2 Thou/mm3 (0.0-0.5); Eosinophils % (Auto) 2 % (0-10); Hemoglobin 13.4 g/dL (12.0-16.0); Immature Granulocytes % (Auto) 1 % (0-0); Immature Granulocytes Auto 0.07 Thou/mm3 (0.00-0.00); Lymphocytes # (Auto) 2.9 Thou/mm3 (1.0-4.8); Lymphocytes % (Auto) 25 % (10-50); Mean Corpuscular HGB Conc 31.9 g/dl (31.0-37.0); Mean Corpuscular Hemoglobin 29.8 pg (25.0-35.0); Mean Corpuscular Volume 94 fL (80-100); Monocytes # (Auto) 0.8 Thou/mm3 (0.0-0.8); Monocytes % (Auto) 7 % (0-12); Neutrophils # (Auto) 7.2 Thou/mm3 (1.8-7.7); Neutrophils % (Auto) 64 % (37-80); Nucleated Red Blood Cell % 0 /100 WBC (0); Platelet Count 239 Thou/mm3 (140-440); RDW Standard Deviation 47.2 fL (36.4-46.3); Red Blood Count 4.49 Miln/mm3 (4.00-5.20); White Blood Count 11.3 Thou/mm3 (3.6-11.0)
[2024-12-01 10:38] LABS: Bilirubin,Urine Negative (Negative); Blood,Urine Negative (Negative); Clarity,Urine Clear (Clear/Hazy); Color,Urine Lt-Yellow (Lt Yel-Yel); Glucose, Urine Negative (Negative); Hyaline Casts,Urine < 1 /hpf (0-1); Ketones,Urine Negative (Negative); Leukocyte Esterase,Urine Negative (Negative); Nitrite,Urine Negative (Negative); Protein,Urine Negative (Neg - Trace); RBC,Urine 1 /hpf (0-3); Specific Gravity,Urine 1.013 (1.001-1.035); Urobilinogen,Urine Negative mg/dL (0.0-1.0); WBC,Urine 1 /hpf (0-5)
[2024-12-01 10:46] LABS: Albumin, Serum 4.1 gm/dL (3.4-4.8); Anion Gap 8 (7-16); BUN/Creatinine Ratio 20 Ratio (12-20); Blood Urea Nitrogen 30 mg/dL (9-23); Calcium 9.7 mg/dL (8.3-10.6); Calcium (Corrected) 9.7 mg/dL (8.5-10.1); Carbon Dioxide 30.4 mMol/L (20.0-31.0); Chloride 102 mMol/L (98-107); Creatinine (Component) 1.5 mg/dL (0.6-1.3); Glucose 238 mg/dL (74-106); Osmolality,Calculated 293 (275-295); Potassium 5.4 mMol/L (3.4-5.1); Sodium 140 mMol/L (136-145); eGFR 36 See Note
[2024-12-01 10:54] LABS: Folate > 24.00 ng/mL (>5.38); Vitamin B12 472 pg/mL (211-911)
[2024-12-01 14:53] LABS: Iron 55 mcg/dL (50-170); Percent Iron Saturation 15 % (20-55); Total Iron Binding Capacity 358 mcg/dL (250-425); Unsaturated Iron Binding 303 (225-295)
== END | disposition home or self-care (01) ==
LOC: COPL 09:42
PROVIDERS: PCP Internal Medicine; Referring Provider Internal Medicine Nephrology; Visit Provider Internal Medicine Nephrology
DX: N18.2 Chronic kidney disease, stage 2 (mild) (principal); D63.1 Anemia in chronic kidney disease
CPT/HCPCS: 36415; 80069; 81001; 82607; 82746; 83540; 83550; 85025

== ENCOUNTER 2025-03-03 13:12 | Emergency (ER) | payer MEDICARE, OTHER, SELFPAY ==
[2025-03-03 13:38] VITALS: BP 110/63; PULSE 60; RESP 16; TEMP 36.6; O2SAT 95; BMI 28.1
--- NOTE | 2025-03-03 13:52 | XR_ITS ---
Examination: Wrist, left 3 views Technique: Wrist AP, oblique, lateral 3 views Date and time of exam: March 03, 2025, 1425 hours INDICATIONS: Patient fell today with into the wrist, wrist pain. FINDINGS: Acute comminuted intra-articular fractures distal radial metaphysis, without major offset at the fracture sites Carpal bones intact. IMPRESSION: Acute comminuted intra-articular fractures distal radial metaphysis
--- NOTE | 2025-03-03 13:52 | XR_ITS ---
Examination: Left elbow 2 views. TECHNIQUE: AP lateral left elbow 2 views Date and time: March 03, 2025 1430 hours INDICATIONS: Patient fell today with injury to the elbow, elbow pain. FINDINGS: No fracture or dislocation. IMPRESSION: No acute fracture
--- NOTE | 2025-03-03 13:52 | XR_ITS ---
Examination: Humerus 2 views left Technique: Humerus, AP lateral 2 views Date and time of exam: March 03, 2025, 1425 hours INDICATIONS: Patient fell today with injury to the arm, left arm pain. FINDINGS: Acute impacted humeral neck fracture Shaft of the humerus intact IMPRESSION: Acute comminuted impacted humeral neck fracture
--- NOTE | 2025-03-03 13:52 | XR_ITS ---
Examination: Shoulder,left, 3 views Technique: Shoulder AP internal rotation, AP external rotation, Y view shoulder, 3 views Exam date and time :March 03, 2025 1425 hours INDICATIONS: Patient fell today with into the shoulder, shoulder pain. FINDINGS: Acute impacted comminuted fracture humeral neck No shoulder dislocation IMPRESSION: Acute impacted comminuted fracture humeral neck
--- NOTE | 2025-03-03 14:01 | XR_ITS ---
Examination: CT brain head without contrast. 2-D sagittal coronal reconstructions Date and time of exam:March 03 at 1412 hours Comparison August 21, 2024 INDICATIONS: Ground-level fall today with symptoms of the head, head pain CTDI: vol (mGy):58.3 DLP: (mGycm):1251 Technique: Multiple CT axial sections of the brain have been obtained, 5 mm slice thickness. Contrast has not been administered. 2-D sagittal, coronal reconstructions have been obtained Low dose protocols were performed. One or more of the following dose reduction techniques were used; automated exposure control, adjustment of the mA and/or KV according to patient size, use of iterative reconstruction technique. Findings: No significant ventricular enlargement. Intra-axial or extra-axial hemorrhage density is not seen. No mass effect or midline shift Basal cisterns are not remarkable. Fourth ventricle is midline. Cranial vault intact. Impression: Negative for acute hemorrhage, mass effect or midline shift
--- NOTE | 2025-03-03 14:03 | PD.EDUPEX ---
Upper Extremity Injury RME/HPI General Chief Complaint: Extremity Injury, Upper Stated Complaint: L ARM INJURY/FALL Time Seen by Provider: 03/03/25 14:01 Arrival date/time: 03/03/25 13:12 RME / HPI RME / HPI narrative: 74-year-old female patient who is taking Eliquis, came in for evaluation regarding fall from a stepstool. About 2 steps, landing on her left upper extremity. Patient denies any headache denies any neck pain denies any LOC no nausea no vomiting patient is ambulatory denies any pelvic pain hip pain abdominal pain chest pain back pain or other complaints. Incident happened 45 minutes prior to ER visit Related Data Home Medications ?Medication ?Instructions ?Recorded ?Confirmed furosemide 40 mg tablet (Lasix) 40 mg PO QDAY #0 tabs 06/11/17 08/23/24 Held on 08/24/24. Instructions: Resume on 08/24/24. Hold until your see your bingo manager apixaban 5 mg tablet (Eliquis) 5 mg PO BID 04/16/24 08/23/24 sennosides 8.6 mg tablet (senna) 8.6 mg PO HS 04/16/24 08/23/24 carbidopa ER 50 mg-levodopa 200 mg 1 tab PO TID 08/21/24 08/23/24 tablet,extended release metoprolol succinate 100 mg 100 mg PO DAILY 08/21/24 08/23/24 tablet,extended release 24 hr hydrocodone 7.5 mg-acetaminophen 0.5 tab PO Q6H PRN severe back pain 08/23/24 08/23/24 325 mg tablet multivitamin-ferrous 1 tab PO QDAY 08/23/24 08/23/24 fumarate-folic acid 18 mg-400 mcg tablet (Centrum) Previous Rx's ?Medication ?Instructions ?Recorded gabapentin 100 mg capsule 100 mg PO TID #30 caps 08/24/24 glucagon 3 mg/actuation nasal 3 mg intranasal QDAY PRN 08/24/24 spray (Baqsimi) hypoglycemia #2 ea insulin degludec 100 unit/mL (3 50 unit (0.5 mL) subcut QPM #15 mL 08/24/24 mL) subcutaneous pen (Tresiba FlexTouch U-100 insulin) acetaminophen 300 mg-codeine 30 mg 1 tab PO Q8H PRN pain #20 tabs 08/02/25 tablet acetaminophen 300 mg-codeine 30 mg 1 tab PO TID PRN pain #20 tabs 03/03/25 tablet Allergies Allergy/AdvReac Type Severity Reaction Status Date / Time iodine Allergy Severe Swell up Verified 03/03/25 13:14 Review of Systems Review of Systems Narrative Review of Systems: Review of system reviewed and within normal limits except mentioned in HPI ED Exam Narrative Physical exam: VITAL SIGNS: Reviewed. GENERAL APPEARANCE: Alert and interactive, follows commands, no acute distress, HEAD AND FACE: Non-traumatic. ENT: PERRL, pink conjunctivitis, eyelid no trauma, Mucous membrane moist. NECK: Supple, nontender, no nuchal rigidity. CHEST: No tenderness, no crepitus, no paradoxical movement, no retractions. LUNGS: Clear, well ventilated, symmetric, no rales, no wheezing, no ronchi, no stridor, good breath sounds bilaterally. HEART: Regular rate, regular rhythm, no murmur, no gallops. ABDOMEN: Soft, positive bowel sounds, nondistended, no guarding, nontender, no rebound, no masses, RECTAL: Deferred. GENITAL: Deferred. NEUROLOGICAL: Gross motor function intact sensory function intact, Appropriate for age. MUSCULOSKELETAL: low back nontender, full range of motion. EXTREMITIES: Left arm pain and swelling, left wrist pain and swelling with limitation range of motion. SKIN: Color pink, dry, no rash, no lacerations, no abrasions, no contusions. LYMPHATICS: Deferred. Course Quality Measures none Orders Category Date Time Status CT head/brain wo con Stat Exams 03/03/25 14:01 Completed XR elbow LT 2V Stat Exams 03/03/25 13:52 Completed XR humerus LT MIN 2V Stat Exams 03/03/25 13:52 Completed XR shoulder LT min 2V Stat Exams 03/03/25 13:52 Completed XR wrist comp LT min 3V Stat Exams 03/03/25 13:52 Completed HYDROcodone*/APAP 5/325 [[place] 5/325] Med 03/03/25 14:02 Discontinued 1 tab PO X1 ONE Ondansetron Odt [Zofran Odt] Med 03/03/25 14:01 Discontinued 4 mg PO X1 ONE Vital Signs Vital signs: Vital Signs Temperature 97.9 F 03/03/25 13:38 Pulse Rate 60 03/03/25 13:38 Respiratory Rate 16 03/03/25 13:38 Blood Pressure 110/63 03/03/25 13:38 Pulse Oximetry (%) 95 03/03/25 13:38 Oxygen Delivery Method Room Air 03/03/25 13:38 Extremity Injury MDM Narrative MDM Narrative:: 74-year-old female patient who is taking Eliquis, came in for evaluation regarding fall from a stepstool. About 2 steps, landing on her left upper extremity. Patient denies any headache denies any neck pain denies any LOC no nausea no vomiting patient is ambulatory denies any pelvic pain hip pain abdominal pain chest pain back pain or other complaints. Incident happened 45 minutes prior to ER visit CT scan of the head came back unremarkable. X-ray of the shoulder, showed minimally displaced humeral neck fracture. X-ray of the wrist showed Acute comminuted intra-articular fractures distal radial metaphysis Volar splint was applied. Patient was also placed in a arm sling. Advised the patient to follow-up closely with joint specialist orthopedic MD next week. Patient agrees with the plan Patient data External records reviewed:: None Clinical information provided by:: patient Social determinants that could affect healthcare access:: none Patient has the following chronic illnesses:: None How is presenting disease/condition affected by chronic disease/condition?: no chronic disease Evaluation data The following diagnostics were reviewed and interpreted by me:: radiology exam(s) Lab and/or radiology exams considered but not ordered:: None Interpretation Summary: She resulted in MDM Medications / Prescriptions Medications or Prescriptions considered but not ordered:: None Medication administrations:: Medication Administration History Discontinued Medications Hydrocodone Bitart/Acetaminophen (Hydrocodone/Apap 5/325 Tablet) 1 tab PO X1 ONE Stop: 03/03/25 14:03 Last Admin: 03/03/25 14:25 Dose: 1 tab Documented By: DAJUAN Ondansetron HCl (Ondansetron Odt 4 Mg Tabrap) 4 mg PO X1 ONE; Protocol Stop: 03/03/25 14:02 Last Admin: 03/03/25 14:25 Dose: 4 mg Documented By: Tessa Tai Consultations Consultation(s) initiated? (list below): No Diagnosis Upper Extremity Injury Differential Diagnosis: fracture of wrist, Colles' fracture and fracture of humerus Most likely diagnosis given after review of the tests above:: Neck fracture, distal radius fracture status post fall Admission Indicated Admission indicated?: not indicated Admission Request Was there a request for admission?: No Disposition Plan Disposition Plan: Discharge Discharge Attestation Discharge Attestation: The patient and all family members were given an opportunity to ask questions and understood the discharge instructions. Discharge instructions specifically effects, indications for sooner follow up or return to the emergency department, and the expected course of current diagnosis. Patient condition: Stable Discharge Plan Plan Patient Disposition: HOME (Self Care) Discharge Disposition comment: Stable Prescriptions/Referrals Prescriptions/Med Rec: New acetaminophen-codeine 300-30 mg tablet 1 tab PO TID PRN (Reason: pain) Qty: 20 0RF acetaminophen-codeine 300-30 mg tablet 1 tab PO Q8H PRN (Reason: pain) Qty: 20 0RF No Action furosemide [Lasix] 40 MG tablet 40 mg PO QDAY Qty: 0 sennosides [senna] 8.6 mg tablet 8.6 mg PO HS Patient Comments: TAKE 1 TO 2 TABLETS BY MOUTH AT BEDTIME NEEDED Rx Instructions: 1-2 times per day Eliquis 5 mg tablet 5 mg PO BID Patient Comments: TAKE 1 TABLET BY MOUTH TWICE DAILY metoprolol succinate 100 mg tablet extended release 24 hr 100 mg PO DAILY Patient Comments: TAKE 1 TABLET BY MOUTH DAILY carbidopa-levodopa 50-200 mg tablet extended release 1 tab PO TID hydrocodone-acetaminophen 7.5-325 mg tablet 0.5 tab PO Q6H PRN (Reason: severe back pain) Patient Comments: TAKE 1/2 TABLET BY MOUTH EVERY 6 HOURS NEEDED FOR SEVERE BACK PAIN Centrum 18-400 mg-mcg Tablet 1 tab PO QDAY gabapentin 100 mg capsule 100 mg PO TID Qty: 30 0RF insulin degludec [Tresiba FlexTouch U-100] 100 unit/mL (3 mL) insulin pen 50 unit subcut QPM Qty: 15 0RF Baqsimi 3 mg/actuation spray,non-aerosol 3 mg intranasal QDAY PRN (Reason: hypoglycemia) Qty: 2 0RF Referrals: No Primary/Family,Physician [Primary Care Provider] - In 1 week Problem List Clinical Impression: Fracture of neck of humerus, Distal radial fracture Patient/Caregiver Discharge Instructions Discharge Activity: activity as tolerated Education Materials: How [employer] Heal Additional Instructions: Thank you for the opportunity for serving you today. You are stable for discharged . You are advised to: Follow-up with your PCP in 1 to 2 days and as per referral to shoulder joint specialist orthopedic MD Return to ED for worsening of symptoms Increase oral fluids Take medication as prescribed Wear your arm sling as needed Do not remove your volar splint for the next 4 weeks Print Language: Kiswahili Stand Alone Forms: Shana Award Info., Patient Portal Info Letter PA/JESUSITA Supervising Physician PA/JESUSITA Supervising Physician: MD Campos
[2025-03-03] MEDS: HYDROcodone/APAP 5/325 TABLET 1 TAB PO (14:25)
[2025-03-03] MEDS: ONDANSETRON ODT 4 MG TABRAP PO (14:25)
== END 2025-03-03 17:55 | disposition home or self-care (01) ==
PROVIDERS: Emergency Provider Family Medicine
DX: S52.572A Other intraarticular fracture of lower end of left radius, initial encounter for closed fracture (principal); S42.212A Unspecified displaced fracture of surgical neck of left humerus, initial encounter for closed fracture; S59.902A Unspecified injury of left elbow, initial encounter; R51.9 Headache, unspecified; M25.512 Pain in left shoulder; W17.89XA Other fall from one level to another, initial encounter
CPT/HCPCS: 29125; 70450; 73030; 73060; 73070; 73110; 99284; Q0162; A9270

== ENCOUNTER 2025-03-05 08:19 | Inpatient (IN) | payer MEDICARE, OTHER, SELFPAY ==
[2025-03-05] VITALS (20 sets, daily range): BP systolic 105–162; BP diastolic 45–70; PULSE 58–96; RESP 12–24; TEMP 36.1–38.2; O2SAT 81–100; BMI 29.2
--- NOTE | 2025-03-05 08:31 | EKG_ITS ---
[facility] Test Date: 2025-03-05 Pat Name: JOE CASTELLANO Department: Room: - Gender: Female Striper: : 1950 Requested By: Dottie Renee Order Number: [id number] Reading MD: Dottie Renee Measurements Intervals Pyatt Rate: 60 P: WA: QRS: -9 QRSD: 144 T: -40 QT: 446 QTc: 446 Interpretive Statements UNCERTAIN REGULAR RHYTHM INDETERMINATE AXIS RIGHT BUNDLE BRANCH BLOCK [120+ ms QRS DURATION, UPRIGHT V1, 40+ ms S IN I/aVL/V4/V5/V6] ST DEVIATION AND MODERATE T-WAVE ABNORMALITY, CONSIDER ANTEROLATERAL ISCHEMIA [-0.1+ mV T-WAVE IN V3-V6] Compared to ECG 08/21/2024 13:19:02 Indeterminate axis now present Right bundle-branch block now present Possible ischemia now present Atrial-paced complex(es) or rhythm no longer present T-wave abnormality still present /store/S0/[id number]/ecg/[id number].pdf
--- NOTE | 2025-03-05 08:31 | XR_ITS ---
Examination: AP chest single view Technique one AP portable upright chest single view Date and time: March 05, 2025 0859 hours Comparison August 21, 2024 INDICATIONS: Shortness of breath today. FINDINGS: Mild heart failure. Mild enlargement cardiac contour with prominent vascular congestion. Suspicious for early pneumonia in the left upper lobe Cardiac leads satisfactory position Prominent osteopenia IMPRESSION: Mild heart failure Suspicious for early pneumonia left upper lobe
--- NOTE | 2025-03-05 08:42 | PD.EDAMS ---
Altered Mental Status RME/HPI General Chief Complaint: Weakness Stated Complaint: WEAKNESS Time Seen by Provider: 03/05/25 08:42 Arrival date/time: 03/05/25 08:19 RME / HPI RME / HPI narrative: 74 year old female presents to the ED BIBA from home for evaluation of altered mental status today. Per medics, family reported the patient to be in and out through the night with difficulty staying awake this morning. Medics state on their arrival, patient was awake alert and answering questions, initially refusing to come. While in the ED patient appears somnolent though is answering questions. She complains of pain to her left leg and left foot. Medics adds patient was evaluated here after ground level fall 2 days ago where she was diagnosed with left fracture of neck of humerus and distal radial fracture and discharged home with Tylenol with codeine. No other complaints reported. Related Data Home Medications ?Medication ?Instructions ?Recorded ?Confirmed furosemide 40 mg tablet (Lasix) 40 mg PO QDAY #0 tabs 06/11/17 08/23/24 Held on 08/24/24. Instructions: Resume on 08/24/24. Hold until your see your cyber instructor apixaban 5 mg tablet (Eliquis) 5 mg PO BID 04/16/24 08/23/24 sennosides 8.6 mg tablet (senna) 8.6 mg PO HS 04/16/24 08/23/24 carbidopa ER 50 mg-levodopa 200 mg 1 tab PO TID 08/21/24 08/23/24 tablet,extended release metoprolol succinate 100 mg 100 mg PO DAILY 08/21/24 08/23/24 tablet,extended release 24 hr hydrocodone 7.5 mg-acetaminophen 0.5 tab PO Q6H PRN severe back pain 08/23/24 08/23/24 325 mg tablet multivitamin-ferrous 1 tab PO QDAY 08/23/24 08/23/24 fumarate-folic acid 18 mg-400 mcg tablet (Centrum) Previous Rx's ?Medication ?Instructions ?Recorded gabapentin 100 mg capsule 100 mg PO TID #30 caps 08/24/24 glucagon 3 mg/actuation nasal 3 mg intranasal QDAY PRN 08/24/24 spray (Baqsimi) hypoglycemia #2 ea insulin degludec 100 unit/mL (3 50 unit (0.5 mL) subcut QPM #15 mL 08/24/24 mL) subcutaneous pen (Tresiba FlexTouch U-100 insulin) acetaminophen 300 mg-codeine 30 mg 1 tab PO Q8H PRN pain #20 tabs 03/03/25 tablet acetaminophen 300 mg-codeine 30 mg 1 tab PO TID PRN pain #20 tabs 03/03/25 tablet Allergies Allergy/AdvReac Type Severity Reaction Status Date / Time iodine Allergy Severe Swell up Verified 03/03/25 13:14 Review of Systems Review of Systems Systems Reviewed: All systems reviewed, normal except as documented Past Medical History Past Medical History NEUROLOGIC: Positive Parkinson's Disease CARDIAC: Positive Cardiac Disorders, Congestive Heart Failure and Hypertension RESPIRATORY: Positive Chronic Obstructive Pulmonary Disease (COPD) and Asthma GENITOURINARY: Positive Renal Disease ENDOCRINE: Positive Diabetes Mellitus Type 2 and Hypothyroidism HEMATOLOGIC: Negative Sickle Cell Disease OTHER HISTORY: Positive Blood Transfusions Family History FAMILY HISTORY: Positive Family Cardiac Disorders, Family Gastrointestinal Problems, Family Cancer and Family Surgery Surgical History SURGICAL: Positive Pacemaker and Tonsillectomy Social History SMOKING STATUS: Former smoker ED Exam Narrative Physical exam: GENERAL APPEARANCE: Drowsy but arousable, well-developed, well-nourished, no acute distress HEENT: Normocephalic, atraumatic; pupils equal, round, reactive to light; EOMI; mucous membranes pink, moist; oropharynx clear NECK: Supple LUNGS: wheezing L>R, decreased air movement, no rales, no rhonchi HEART: Regular rate, regular rhythm; normal S1, S2; no murmurs ABDOMEN: non distended; normal BS; soft, no tenderness, no guarding, no rebound; no masses, no organomegaly, no hernia BACK: no CVA tenderness EXTREMITIES: Left arm in a sling, ecchymosis to the base of the left great toe; no edema NEUROLOGIC: drowsy but arousable; resting tremor noted; cranial nerves II-XII grossly intact PSYCHIATRIC: appropriate mood and affect SKIN: warm, dry, normal color; no rashes Course Quality Measures Current suspected stage: sepsis Possible source: pulmonary Blood cultures ordered: completed in ED Antibiotic ordered: Yes Pertinent labs: 03/05/25 10:14 Lactic Acid 1.4 mMol/L (0.4-2.0) Procalcitonin 0.70 H ng/ml (0.0-0.49) sepsis Orders Category Date Time Status Buyer Internship NOW Care 03/05/25 08:31 Active EKG (ED ONLY) *Do not use* NOW Care 03/05/25 08:31 Completed EKG (ED Only) Stat Exams 03/05/25 08:31 Draft XR chest 1V portable Stat Exams 03/05/25 08:31 Completed ABG [Arterial Blood Gas] Stat Lab 03/05/25 08:55 Completed B-Type Natriuretic Peptide Stat Lab 03/05/25 08:47 Completed Blood Culture (Lab) Stat Lab 03/05/25 10:22 Received CBC Stat Lab 03/05/25 08:47 Completed Comprehensive Metabolic Panel Stat Lab 03/05/25 08:47 Completed Lactate (Lactic Acid) Stat Lab 03/05/25 10:14 Completed Lipase Stat Lab 03/05/25 08:47 Completed Magnesium Stat Lab 03/05/25 08:47 Completed Procalcitonin Stat Lab 03/05/25 10:14 Received Troponin I Stat Lab 03/05/25 08:47 Completed UA, C/S IF [Urinalysis, C/S if Indicated] Stat Lab 03/05/25 10:31 Received Albuterol/Ipratr Rt Fidelina [Duoneb Rt Fidelina] Med 03/05/25 08:30 Discontinued 3 ml INH X1 ONE Albuterol/Ipratr Rt Fidelina [Duoneb Rt Fidelina] Med 03/05/25 09:15 Discontinued 3 ml INH X1 ONE Azithromycin Inj [Zithromax Inj] 500 mg Med 03/05/25 10:02 Discontinued Sodium Chloride 0.9% 250 ml [Ns] 250 ml IV X1 Calcium Gluc/Ns 1000MG Ivpb [Calcium Gluc/Ns 1000mg Med 03/05/25 09:30 Discontinued Ivpb] 1,000 mg in 50 ml IV X1 Calcium Gluconate 10% Inj Med 03/05/25 09:45 Discontinued 1 gm IV X1 ONE Dextrose 50% Syr [D50w Syringe Abboject] Med 03/05/25 10:05 Discontinued 50 ml IVP X1 ONE Insulin Regular Med 03/05/25 10:05 Discontinued 5 unit IV X1 ONE Sod Polystyrene Sulfon Susp [Kayexalate Susp] Med 03/05/25 10:05 Discontinued 30 gm PO X1 ONE Sodium Chloride 0.9% 1000 ml [Ns] 1,000 ml Med 03/05/25 10:04 Discontinued IV 999 mls/hr cefTRIAXone/D5w 1gm IV premix [Rocephin/D5w 1gm IV Med 03/05/25 10:02 Discontinued premix] 1 gm in 50 ml IV X1 Vital Signs Vital signs: Vital Signs Temperature 98.7 F 03/05/25 08:34 Pulse Rate 58 L 03/05/25 08:34 Respiratory Rate 19 03/05/25 08:34 Blood Pressure 124/70 03/05/25 08:34 Pulse Oximetry (%) 81 L 03/05/25 08:34 Oxygen Delivery Method Room Air 03/05/25 08:34 Initial pulse ox is 81% on room air which is hypoxic. At 10:30 AM, patient is saturating 97% on 3L nasal cannula. Altered Mental Status MDM Narrative MDM Narrative:: Marilee Alcantara am scribing for and in the presence of Dr. Sheth. Patient data External records reviewed:: [facility] previous records (I reviewed ED Visit on 03/03/2025 ) and EMS form Clinical information provided by:: patient and EMS Social determinants that could affect healthcare access:: none Patient has the following chronic illnesses:: Parkinson's, atrial fibrillation on Eliquis, sick sinus syndrome s/p pacemaker, HFpEF 60-65% (04/2024), hypertension, diabetes, COPD How is presenting disease/condition affected by chronic disease/condition?: exacerbated by Evaluation data The following diagnostics were reviewed and interpreted by me:: lab results, radiology exam(s) and EKG tracing(s) (03/05/2025 @ 0840 AM. Pacer spikes, sinus first degree AV block, rate 60, right bundle branch block, no STEMI. ) Lab and/or radiology exams considered but not ordered:: None Interpretation Summary: Ordering Physician: Dottie Sheth MD Date of Service: 03/05/25 Procedure(s): XR chest 1V portable Accession Number(s): [id number] cc: Robert Chawla MD; Dottie Sheth MD~ Examination: AP chest single view Technique one AP portable upright chest single view Date and time: March 05, 2025 0859 hours Comparison August 21, 2024 INDICATIONS: Shortness of breath today. FINDINGS: Mild heart failure. Mild enlargement cardiac contour with prominent vascular congestion. Suspicious for early pneumonia in the left upper lobe Cardiac leads satisfactory position Prominent osteopenia IMPRESSION: Mild heart failure Suspicious for early pneumonia left upper lobe Dictated By: Robert Chawla MD Signed By: <Electronically signed by Robert Chawla MD in OV> 03/05/25 0908 Medications / Prescriptions Medications or Prescriptions considered but not ordered:: None Medication administrations:: Medication Administration History Discontinued Medications Albuterol/Ipratropium (Albuterol/Ipratropium (Duoneb) Rt Fidelina 3 Ml Nebu) 3 ml INH X1 ONE Stop: 03/05/25 08:31 Albuterol/Ipratropium (Albuterol/Ipratropium (Duoneb) Rt Fidelina 3 Ml Nebu) 3 ml INH X1 ONE Stop: 03/05/25 09:16 Last Admin: 03/05/25 09:25 Dose: 3 ml Documented By: JATIN Calcium Gluconate (Calcium Gluconate 10% Inj 1 Gm/10 Ml Vial) 1 gm IV X1 ONE Stop: 03/05/25 09:46 Last Admin: 03/05/25 10:24 Dose: 1 gm Documented By: AYSE Dextrose (Dextrose 50%-Water Inj 50 Ml Syringe) 50 ml IVP X1 ONE Stop: 03/05/25 10:06 Last Admin: 03/05/25 10:36 Dose: 50 ml Documented By: VL Calcium Gluconate/Sodium Chloride (Calcium Gluc/Ns 1000mg Ivpb) 1,000 mg in 50 mls @ 50 mls/hr IV X1 ONE Stop: 03/05/25 10:29 Azithromycin 500 mg/ Sodium (Chloride) 250 mls @ 250 mls/hr IV X1 ONE Stop: 03/05/25 11:01 Ceftriaxone Sodium/Dextrose (Rocephin/D5w 1gm Iv Premix) 1 gm in 50 mls @ 100 mls/hr IV X1 ONE Stop: 03/05/25 10:31 Last Admin: 03/05/25 10:23 Dose: 100 mls/hr Documented By: VL Sodium Chloride (Ns) 1,000 mls @ 999 mls/hr IV .Q1H1M ONE Stop: 03/05/25 11:04 Last Admin: 03/05/25 10:23 Dose: 999 mls/hr Documented By: AYSE Insulin Human Regular (Insulin Hum Regular 1 Unit/0.01 Ml (Per Unit)) 5 unit IV X1 ONE Stop: 03/05/25 10:06 Last Admin: 03/05/25 10:35 Dose: 5 unit Documented By: VL Co-signed By: RADHA Sodium Polystyrene Sulfonate (Sod Polystyrene Sulfon Susp 15 Gm/60 Ml Btl) 30 gm PO X1 ONE Stop: 03/05/25 10:06 Last Admin: 03/05/25 10:23 Dose: 30 gm Documented By: VL See above Consultations Consultation(s) initiated? (list below): Yes Consultation #1 (Physician, Specialty, Details): I spoke with resident Dr. Gandhi working with hospitalist Dr. Bell. Discussed patients PMHx, HPI, ED course, exam findings, labs, and radiology results. The hospitalist agree to accept the patient for admission. Diagnosis Differential diagnosis altered mental status: alcoholic intoxication, altered mental status, dementia, hypoglycemia, hyponatremia, subarachnoid hemorrhage, sepsis and other (UTI ) Most likely diagnosis given after review of the tests above:: Pneumonia Sepsis Admission Indicated Admission indicated?: indicated Admission Request Was there a request for admission?: Yes Admission Attestation Admission request attestation: Discussed case with [] from Hospitalist service regarding admission. Discussed patients ED course, exam findings, labs, and radiology results. The Hospitalist [agrees,declines] to accept the patient for admission. Disposition Plan Disposition Plan: Admit Critical Care Time Critical Care Time Critical Care Time: Yes Total Critical Care Time (min.): 35 Attestation: The high probability of sudden, clinically significant deterioration in the patient's condition required the highest level of my preparedness to intervene urgently. The services I provided to this patient were to treat and/or prevent clinically significant deterioration. Services included the following: chart data review, reviewing nursing notes and/or old charts, documentation time, [employer] consultant collaboration regarding findings and treatment options, medication orders and management, direct patient care, vital sign assessments and ordering, interpreting and reviewing diagnostic studies and lab tests. Aggregate critical care time includes only time during which I was engaged in work directly related to the patient's care, as described above, whether at bedside or elsewhere in the Emergency Department. It did not include time spent performing other reported procedures or the services of residents, students, nurses or physician assistants. Discharge Plan Plan Patient Disposition: Admit Acute Care w/in Hospital Prescriptions/Referrals Prescriptions/Med Rec: No Action furosemide [Lasix] 40 MG tablet 40 mg PO QDAY Qty: 0 sennosides [senna] 8.6 mg tablet 8.6 mg PO HS Patient Comments: TAKE 1 TO 2 TABLETS BY MOUTH AT BEDTIME NEEDED Rx Instructions: 1-2 times per day Eliquis 5 mg tablet 5 mg PO BID Patient Comments: TAKE 1 TABLET BY MOUTH TWICE DAILY acetaminophen-codeine 300-30 mg tablet 1 tab PO TID PRN (Reason: pain) Qty: 20 0RF acetaminophen-codeine 300-30 mg tablet 1 tab PO Q8H PRN (Reason: pain) Qty: 20 0RF metoprolol succinate 100 mg tablet extended release 24 hr 100 mg PO DAILY Patient Comments: TAKE 1 TABLET BY MOUTH DAILY carbidopa-levodopa 50-200 mg tablet extended release 1 tab PO TID hydrocodone-acetaminophen 7.5-325 mg tablet 0.5 tab PO Q6H PRN (Reason: severe back pain) Patient Comments: TAKE 1/2 TABLET BY MOUTH EVERY 6 HOURS NEEDED FOR SEVERE BACK PAIN Centrum 18-400 mg-mcg Tablet 1 tab PO QDAY gabapentin 100 mg capsule 100 mg PO TID Qty: 30 0RF insulin degludec [Tresiba FlexTouch U-100] 100 unit/mL (3 mL) insulin pen 50 unit subcut QPM Qty: 15 0RF Baqsimi 3 mg/actuation spray,non-aerosol 3 mg intranasal QDAY PRN (Reason: hypoglycemia) Qty: 2 0RF Referrals: Tequila Ha MD [Primary Care Provider] - In 1 week Problem List Clinical Impression: Pneumonia, Sepsis Patient/Caregiver Discharge Instructions Print Language: Polish Stand Alone Forms: Shana Award Info., Patient Portal Info Letter
[2025-03-05 09:00] LABS: Basophils # (Auto) 0.2 Thou/mm3 (0.0-0.2); Basophils % (Auto) 1 % (0-2.5); Eosinophils # (Auto) 0.1 Thou/mm3 (0.0-0.5); Eosinophils % (Auto) 0 % (0-10); Hematocrit 41.2 % (36.0-46.0); Hemoglobin 12.8 g/dL (12.0-16.0); Immature Granulocytes Auto 0.27 Thou/mm3 (0.00-0.00); Lymphocytes # (Auto) 1.5 Thou/mm3 (1.0-4.8); Lymphocytes % (Auto) 5 % (10-50); Mean Corpuscular HGB Conc 31.1 g/dl (31.0-37.0); Mean Corpuscular Hemoglobin 29.4 pg (25.0-35.0); Mean Corpuscular Volume 95 fL (80-100); Monocytes # (Auto) 1.2 Thou/mm3 (0.0-0.8); Monocytes % (Auto) 4 % (0-12); Neutrophils # (Auto) 27.0 Thou/mm3 (1.8-7.7); Neutrophils % (Auto) 89 % (37-80); Nucleated Red Blood Cell # 0.00 Thou/mm3 (0.00-0.00); Nucleated Red Blood Cell % 0 /100 WBC (0); Platelet Count 222 Thou/mm3 (140-440); RDW Standard Deviation 57.2 fL (36.4-46.3); Red Blood Count 4.36 Miln/mm3 (4.00-5.20); White Blood Count 30.2 Thou/mm3 (3.6-11.0)
[2025-03-05 09:01] LABS: Base Excess 0 (-3-3); HCO3 26 mEq/L (20-26); Inspired O2, VO2 Liters 3 L/min; O2 Saturation 95 % (91-98); PCO2 45 mmHg (32.0-48.0); PO2 72 mmHg (83-108); pH, Arterial 7.37 (7.35-7.45)
[2025-03-05 09:02] LABS: Allen Test Performed/OK; Puncture Site Right Radial
[2025-03-05] MEDS: ALBUTEROL/IPRATROPIUM (Duoneb) RT SOL 3 ML NEBU INH ×2 (09:06→09:25)
[2025-03-05 09:22] LABS: B-Type Natriuretic Peptide 279 pg/mL (0-100)
[2025-03-05 09:25] LABS: Alanine Aminotransferase 18 U/L (10-49); Albumin, Serum 4.1 gm/dL (3.4-4.8); Albumin/Globulin Ratio 1.2 (1.2-2.2); Alkaline Phosphatase 95 U/L (46-116); Anion Gap 8 (7-16); Aspartate Amino Transferase 33 U/L (0-34); BUN/Creatinine Ratio 15 Ratio (12-20); Bilirubin,Total 0.7 mg/dL (0.3-1.2); Blood Urea Nitrogen 27 mg/dL (9-23); Calcium 9.3 mg/dL (8.3-10.6); Calcium (Corrected) 9.3 mg/dL (8.5-10.1); Carbon Dioxide 25.0 mMol/L (20.0-31.0); Chloride 103 mMol/L (98-107); Creatinine (Component) 1.8 mg/dL (0.6-1.3); Estimated Creatinine Clearance 30.7 mL/min (>60); Globulin 3.3 gm/dL (2.3-3.5); Glucose 143 mg/dL (74-106); Lipase 27 U/L (12-53); Magnesium 1.8 mg/dL (1.6-2.6); Osmolality,Calculated 279 (275-295); Sodium 136 mMol/L (136-145); Total Protein 7.4 gm/dL (5.7-8.2); Troponin I < 0.020 ng/mL (0.0-0.045); eGFR 29 See Note
[2025-03-05 09:28] LABS: Potassium 6.1 mMol/L (3.4-5.1)
[2025-03-05] MEDS: SODIUM CHLORIDE 0.9% 1000 ML 1,000 ML 999 ML IV (10:23)
[2025-03-05] MEDS: cefTRIAXone/D5w 1gm IV premix 1 GM/50 ML BAG IV (10:23)
[2025-03-05] MEDS: SOD POLYSTYRENE SULFON SUSP 15 GM/60 ML BTL 30 GM PO (10:23)
[2025-03-05] MEDS: CALCIUM GLUCONATE 10% INJ 1 GM/10 ML VIAL IV (10:24)
[2025-03-05 10:27] LABS: Lactate (Lactic Acid) 1.4 mMol/L (0.4-2.0)
[2025-03-05] MEDS: INSULIN HUM REGULAR 1 UNIT/0.01 ML (PER UNIT) 5 UNIT IV (10:35)
[2025-03-05] MEDS: DEXTROSE 50%-WATER INJ 50 ML SYRINGE IVP (10:36)
[2025-03-05 10:43] LABS: Collection Type, Urine Catheter
[2025-03-05 11:09] LABS: Procalcitonin 0.70 ng/ml (0.0-0.49)
[2025-03-05 11:21] LABS: Bilirubin,Urine Negative (Negative); Blood,Urine Negative (Negative); Clarity,Urine Clear (Clear/Hazy); Color,Urine Yellow (Lt Yel-Yel); Culture Indicated,Urine Not Indicated; Glucose, Urine Negative (Negative); Ketones,Urine Negative (Negative); Leukocyte Esterase,Urine Negative (Negative); Nitrite,Urine Negative (Negative); PH,Urine 5.5 (5.0-7.0); Protein,Urine Negative (Neg - Trace); RBC,Urine 1 /hpf (0-3); Specific Gravity,Urine 1.024 (1.001-1.035); Squamous Epithelial Cell,Urine 3 /hpf (0-5); Urobilinogen,Urine Negative mg/dL (0.0-1.0); WBC,Urine 1 /hpf (0-5)
[2025-03-05] MEDS: AZITHROMYCIN INJ 500 MG in SODIUM CHLORIDE 0.9% 250 ML 250 ML 250 MG IV (11:27)
--- NOTE | 2025-03-05 15:01 | ESHP_ITS ---
<Statement entered by Isai Gandhi MD - 03/06/25 23:22> I have reviewed the note and agree with the resident's assessment & plan with exceptions as below. I have personally reviewed labs, imaging, home meds/prior records, examined the patient, formulated and discussed management plan with the IM team. Pt examined at bedside. Pt currently admitted for sepsis 2/2 PNA at this time, leukocytosis present, fever and evidence of end organ damage with ALLYSON. Will initiate broad spectrum abx, follow cultures, and continue with antipyretics. Will resume home medicines at this time as well. #Sepsis secondary to #PNA #Leukocytosis ALLYSON, fever, and leukocytosis Sepsis due to 2/4 SIRS criteria with acute sepsis-related organ dysfunction as evidence by ALLYSON Given Sepsis Bolus: Yes Isai Gandhi, PGY-2 Internal Medicine Documentation for date of: 03/05/25 HPI History of Present Illness History of present illness: Tiffanie Ryan is a 74 year old female with pmhx of recent left sided fractures, CHF, T2DM, Parkinsons, who was BIBA to the ED due to AMS and difficulty waking up in the morning. Two days ago she was discharged from the ED with tylenol and codeine afte sustaining left fracture of the neck of the humerous and distal radial fracture. On exam patient is AOx3 and reports that she does not know what she is doing here and that it feels like she woke up in the hospital. She denies chest pain, SOB, NVD, fever, discomfort, and pain with urination. ED Course: Found to be hypotensive, 1L NS given. EKG: New RBBB, possible ischemia CXR: Possible left upper lobe pneumonia Blood cultures were ordered, lactic acid wnl and procal was slightly elevated. Ceftriaxone and azithromycin given. Medical history:Stated as above Surgical history: C-sectionsx2, hysterectomy, appendectomy, back surgery Allergy: iodine Social: Living with at home with her son. Smoking:Quit 15 years ago, smoked for 25 years (5-6cigs/day) Home meds: Confirmed Patient is admitted for acute on chronic hypoxic respiratory failure with concerns for sepsis 2/2 pneumonia. All 12 systems were reviewed and found to benegative unless otherwise stated in the HPI Exam Vital Signs Temp Pulse Resp BP Pulse Ox O2 Del Method O2 Flow Rate 97.5 F 60 17 125/62 100 Nasal Cannula 3 03/05/25 12:05 03/05/25 12:30 03/05/25 12:30 03/05/25 12:30 03/05/25 12:30 03/05/25 12:05 03/05/25 12:05 Narrative Exam GENERAL APPEARANCE: AOx3, well-developed, well-nourished, no acute distress HEENT: Normocephalic, atraumatic; pupils equal, round, reactive to light; EOMI; mucous membranes pink, moist; oropharynx clear NECK: Supple LUNGS: Coarse lungs sounds L>R, decreased air movement, no rales, no rhonchi HEART: Bradycardic, regular rhythm; normal S1, S2; no murmurs ABDOMEN: non distended; normal BS; soft, no tenderness, no guarding, no rebound; no masses, no organomegaly, no hernia BACK: no CVA tenderness EXTREMITIES: Left arm in a sling, ecchymosis to the base of the left great toe; no edema, NEUROLOGIC: drowsy but arousable; resting tremor noted; cranial nerves II-XII grossly intact PSYCHIATRIC: appropriate mood and affect SKIN: warm, dry, normal color; no rashes Results: Labs 03/06/25 04:46 03/06/25 04:46 Labs: Short CBC 03/05/25 Range/Units 08:47 WBC 30.2 H (3.6-11.0) Thou/mm3 Hgb 12.8 (12.0-16.0) g/dL Hct 41.2 (36.0-46.0) % Plt Count 222 (140-440) Thou/mm3 BMP 03/05/25 08:47 Sodium 136 Potassium 6.1 H* Chloride 103 Carbon Dioxide 25.0 BUN 27 H Creatinine 1.8 H Glucose 143 H Calcium 9.3 Cardiac Enzymes 03/05/25 Range/Units 08:47 Troponin I < 0.020 (0.0-0.045) ng/mL Liver Function 03/05/25 Range/Units 08:47 Total Bilirubin 0.7 (0.3-1.2) mg/dL AST 33 (0-34) U/L ALT 18 (10-49) U/L Alkaline Phosphatase 95 (46-116) U/L Albumin 4.1 (3.4-4.8) gm/dL Urine 03/05/25 Range/Units 10:31 Urine Color Yellow (Lt Yel-Yel) Urine Clarity Clear (Clear/Hazy) Urine pH 5.5 (5.0-7.0) Ur Specific [place] 1.024 (1.001-1.035) Urine Protein Negative (Neg - Trace) Urine Glucose (UA) Negative (Negative) ABG Interpretation ABG results: 03/05/25 08:55 ABG pH 7.37 ABG pCO2 45 ABG pO2 72 L ABG HCO3 26 ABG O2 Saturation 95 ABG Base Excess 0 Quality Measures Quality Measures sepsis Current suspected stage: sepsis Possible source: pulmonary Blood cultures ordered: completed in ED Antibiotic ordered: Yes Advance care planning discussed with:: patient Medications Home Medications and Allergies Home Medications ?Medication ?Instructions ?Recorded ?Confirmed ?Type furosemide 40 mg tablet (Lasix) 40 mg PO QDAY #0 tabs 06/11/17 03/05/25 History apixaban 5 mg tablet (Eliquis) 5 mg PO BID 04/16/24 History sennosides 8.6 mg tablet (senna) 8.6 mg PO HS 04/16/24 03/05/25 History carbidopa ER 50 mg-levodopa 200 mg 1 tab PO TID 03/05/25 History tablet,extended release metoprolol succinate 100 mg 100 mg PO DAILY 08/21/24 0 03/05/25 History tablet,extended release 24 hr hydrocodone 7.5 mg-acetaminophen 0.5 tab PO Q6H PRN se cesar back pain 08/23/24 03/05/25 History 325 mg tablet multivitamin-ferrous 1 tab PO QDAY 08/23/2403/05 History fumarate-folic acid 18 mg-400 mcg tablet (Centrum) amiodarone 200 mg tablet 200 mg PO BID 03/05/2503/05 History ferrous sulfate 325 mg (65 mg 325 mg PO DAILY 03/05/25 03/05/25 History iron) tablet (FeroSul) levothyroxine 50 mcg tablet 50 mcg PO DAILY 03/05/25 0 03/05/25 History pramipexole 0.25 mg tablet 0.25 mg PO TID 03/05/2511/24 History Allergies Allergy/AdvReac Type Severity Reaction Status Date / Time iodine Allergy Severe Swell up Verified 03/03/25 13:14 Visit Medications Discontinued Medications Albuterol/Ipratropium (Albuterol/Ipratropium (Duoneb) Rt Fidelina 3 Ml Nebu) 3 ml INH X1 ONE Stop: 03/05/25 08:31 Last Admin: 03/05/25 09:06 Dose: 3 ml Albuterol/Ipratropium (Albuterol/Ipratropium (Duoneb) Rt Fidelina 3 Ml Nebu) 3 ml INH X1 ONE Stop: 03/05/25 09:16 Last Admin: 03/05/25 09:25 Dose: 3 ml Calcium Gluconate (Calcium Gluconate 10% Inj 1 Gm/10 Ml Vial) 1 gm IV X1 ONE Stop: 03/05/25 09:46 Last Admin: 03/05/25 10:24 Dose: 1 gm Dextrose (Dextrose 50%-Water Inj 50 Ml Syringe) 50 ml IVP X1 ONE Stop: 03/05/25 10:06 Last Admin: 03/05/25 10:36 Dose: 50 ml Calcium Gluconate/Sodium Chloride (Calcium Gluc/Ns 1000mg Ivpb) 1,000 mg in 50 mls @ 50 mls/hr IV X1 ONE Stop: 03/05/25 10:29 Last Admin: 03/05/25 11:39 Dose: Not Given Azithromycin 500 mg/ Sodium (Chloride) 250 mls @ 250 mls/hr IV X1 ONE Stop: 03/05/25 11:01 Last Infusion: 03/05/25 12:31 Dose: Infused Ceftriaxone Sodium/Dextrose (Rocephin/D5w 1gm Iv Premix) 1 gm in 50 mls @ 100 mls/hr IV X1 ONE Stop: 03/05/25 10:31 Last Infusion: 03/05/25 11:16 Dose: Infused Sodium Chloride (Ns) 1,000 mls @ 999 mls/hr IV .Q1H1M ONE Stop: 03/05/25 11:04 Last Infusion: 03/05/25 11:30 Dose: Infused Insulin Human Regular (Insulin Hum Regular 1 Unit/0.01 Ml (Per Unit)) 5 unit IV X1 ONE Stop: 03/05/25 10:06 Last Admin: 03/05/25 10:35 Dose: 5 unit Sodium Polystyrene Sulfonate (Sod Polystyrene Sulfon Susp 15 Gm/60 Ml Btl) 30 gm PO X1 ONE Stop: 03/05/25 10:06 Last Admin: 03/05/25 10:23 Dose: 30 gm Assessment & Plan Plan Assessment 74 y/o F with PMHx significant for A-fib, sick sinus syndrome with pacemaker, HFpEF, COPD, insulin-dependent diabetes, Parkinson's, HTN presented to ED with chief complaint of altered mental status x 1 day, admitted for sepsis. Admitted to Tele on ICU overflow #Sepsis 2/2 to PNA #Community Acquired PNA likely 2/2 to gram neg vs atypical organisms #Acute on chronic hypoxic respiratory failure 2/2 to above Patient presented with chief complaint of acute AMS which resolved prior to treatment. O2 sat: 90, BP 105/45, RRs: 15. UA was clean without signs of infection. Chest xray showed mild heart failure and suspicious for early pneumonia left upper lobe. Proca.7. Could be due to recent fractures, causing pain with breathing/movement. Plan: -Telemetry -Azithromycin 500mg IV QD -Ceftriaxone 1g IV QD -FUOP COcci serology -FUP Sputum culture -FUP Influenza A+B screen -FUP Blood cx #Left sided fractures Do not want patient sedated due to AMS. -Acetominophen for pain -Diluadid for breakthrough pain 7-10 #ALLYSON on CKD Patient has history of CKD. Kidney function at baseline: BUN 34, creatinine 2.1, EGFR 24. Likely prerenal in the setting of dehydration and sepsis. Patient received 2 L bolus normal saline. -IVF as above -Avoid nephrotoxins -Monitor daily labs -Renally dose meds -FUP renal panel #HFpEF, last ECHO 04/2024, EF 60% #A-fib Patient has history of heart failure with preserved ejection fraction, A-fib. Home meds held in setting of sepsis with hypotension, except Eliquis. -Home med: Eliquis p.o. 5 mg twice daily -Metoprolol succinate 100mg PO -Telemetry -Strict I's and O's -IVF as above, then reassess #COPD Patient has history of COPD controlled with outpatient medication. Patient has home O2, does not require to use continuously. Patient saturating well on RA. -O2, titrate to maintain saturation greater than 88% -DuoNebs as needed #Insulin-dependent diabetes Patient has medical history of insulin-dependent diabetes. Last A1c 6.9% as of 09/2024. Blood glucose <192 -Insulin sliding scale (Glargine 20 units SC QD) -Recheck A1c #Parkinson's Patient has history of Parkinson's disease, well-controlled with carbidopa?levodopa. Not currently showing active symptoms. -Continue Carbidopa/Levadopa DVT prophylaxis: Eliquis GI prophylaxis: None Diet: Cardiac Lines: Peripheral IV Code status: Full code Plan of care discussed with senior resident Dr. Gandhi PGY?[address] Dwyer. Dandy Kim MD PGY-1 Attending Provider Attestation/Addendum After examination of the patient and review of the clinical data I feel that this patient needs admission to the hospital for further treatment/evaluation. I have discussed and was present for the essential components of the history, physical examination, diagnosis, and treatment plan with the resident. I agree with the patient's care as documented by the resident and amended herein by me. Cyrus Dwyer, DO. Although this document has been carefully reviewed, there may still be some phonetic and other typographical errors. These errors are purely grammatical due to imperfections in the software program and should not be construed in any way to compromise the substance of the patient's medical care during this visit.
[2025-03-05] MEDS: ACETAMINOPHEN 325 MG TABLET 650 MG PO (16:22)
[2025-03-05] MEDS: HYDROmorphone INJ 2 MG/ML VIAL 0.25 MG IVP ×2 (17:14→21:40)
[2025-03-05] MEDS: INSULIN LISPRO (AdmeLOG) 1 UNIT/0.01 ML UNIT SC (17:48)
[2025-03-05 18:21] LABS: INR 1.0 (0.9-1.3); Prothrombin Time 11.0 Seconds (9.0-12.2)
[2025-03-05] MEDS: FUROSEMIDE INJ 10 MG/ML 4ML VIAL 40 MG IVP (20:20)
[2025-03-05] MEDS: APIXABAN 2.5 MG TABLET 5 MG PO (20:30)
[2025-03-05 21:09] LABS: Albumin, Serum 3.5 gm/dL (3.4-4.8); Anion Gap 8 (7-16); BUN/Creatinine Ratio 14 Ratio (12-20); Blood Urea Nitrogen 22 mg/dL (9-23); Calcium 9.2 mg/dL (8.3-10.6); Calcium (Corrected) 9.6 mg/dL (8.5-10.1); Carbon Dioxide 24.4 mMol/L (20.0-31.0); Chloride 107 mMol/L (98-107); Creatinine (Component) 1.6 mg/dL (0.6-1.3); Estimated Creatinine Clearance 35.0 mL/min (>60); Glucose 192 mg/dL (74-106); Osmolality,Calculated 285 (275-295); Phosphorous 3.9 mg/dL (2.4-5.1); Potassium 4.9 mMol/L (3.4-5.1); Sodium 139 mMol/L (136-145); eGFR 34 See Note
[2025-03-05] MEDS: CARBIDOPA/LEVODOPA CR 50/200 TABCR 1 TAB PO (21:36)
[2025-03-06] VITALS (14 sets, daily range): BP systolic 104–137; BP diastolic 41–63; PULSE 60–72; RESP 14–20; TEMP 36.2–36.3; O2SAT 90–98
[2025-03-06] MEDS: HYDROmorphone INJ 2 MG/ML VIAL 0.25 MG IVP ×4 (02:32→22:07)
[2025-03-06] MEDS: LEVOTHYROXINE SODIUM 25 MCG TABLET 50 MCG PO (05:13)
[2025-03-06] MEDS: PRAMIPEXOLE 0.25 MG TABLET PO ×3 (05:13→21:35)
[2025-03-06] MEDS: GABAPENTIN 100 MG CAPSULE PO ×3 (05:13→21:35)
[2025-03-06] MEDS: CARBIDOPA/LEVODOPA CR 50/200 TABCR 1 TAB PO ×3 (05:14→21:35)
[2025-03-06 06:12] LABS: Basophils # (Auto) 0.1 Thou/mm3 (0.0-0.2); Basophils % (Auto) 1 % (0-2.5); Eosinophils # (Auto) 0.4 Thou/mm3 (0.0-0.5); Eosinophils % (Auto) 3 % (0-10); Hematocrit 36.3 % (36.0-46.0); Hemoglobin 11.2 g/dL (12.0-16.0); Immature Granulocytes Auto 0.07 Thou/mm3 (0.00-0.00); Lymphocytes # (Auto) 1.8 Thou/mm3 (1.0-4.8); Lymphocytes % (Auto) 12 % (10-50); Mean Corpuscular HGB Conc 30.9 g/dl (31.0-37.0); Mean Corpuscular Hemoglobin 29.5 pg (25.0-35.0); Mean Corpuscular Volume 96 fL (80-100); Monocytes # (Auto) 0.7 Thou/mm3 (0.0-0.8); Monocytes % (Auto) 5 % (0-12); Neutrophils # (Auto) 11.8 Thou/mm3 (1.8-7.7); Neutrophils % (Auto) 79 % (37-80); Nucleated Red Blood Cell # 0.00 Thou/mm3 (0.00-0.00); Nucleated Red Blood Cell % 0 /100 WBC (0); Platelet Count 171 Thou/mm3 (140-440); RDW Standard Deviation 58.0 fL (36.4-46.3); Red Blood Count 3.80 Miln/mm3 (4.00-5.20); White Blood Count 14.9 Thou/mm3 (3.6-11.0)
[2025-03-06 06:43] LABS: Glucose Estimated Average 197 mg/dL (80-131); Hemoglobin A1C 8.5 % Hgb (4.8-6.0)
[2025-03-06 06:55] LABS: Alanine Aminotransferase < 7 U/L (10-49); Albumin, Serum 3.4 gm/dL (3.4-4.8); Albumin/Globulin Ratio 1.3 (1.2-2.2); Alkaline Phosphatase 79 U/L (46-116); Anion Gap 9 (7-16); Aspartate Amino Transferase 25 U/L (0-34); BUN/Creatinine Ratio 16 Ratio (12-20); Bilirubin,Total 0.6 mg/dL (0.3-1.2); Blood Urea Nitrogen 26 mg/dL (9-23); Calcium 9.0 mg/dL (8.3-10.6); Calcium (Corrected) 9.5 mg/dL (8.5-10.1); Carbon Dioxide 26.9 mMol/L (20.0-31.0); Chloride 103 mMol/L (98-107); Creatinine (Component) 1.6 mg/dL (0.6-1.3); Estimated Creatinine Clearance 34.4 mL/min (>60); Globulin 2.7 gm/dL (2.3-3.5); Glucose 207 mg/dL (74-106); Magnesium 1.6 mg/dL (1.6-2.6); Osmolality,Calculated 288 (275-295); Phosphorous 3.7 mg/dL (2.4-5.1); Potassium 4.4 mMol/L (3.4-5.1); Sodium 139 mMol/L (136-145); Total Protein 6.1 gm/dL (5.7-8.2); eGFR 34 See Note
[2025-03-06 07:29] LABS: Thyroid Stimulating Hormone 3.41 uIU/mL (0.55-4.78)
[2025-03-06] MEDS: cefTRIAXone/D5w 1gm IV premix 1 GM/50 ML BAG IV (08:46)
[2025-03-06] MEDS: INSULIN LISPRO (AdmeLOG) 1 UNIT/0.01 ML UNIT SC ×3 (08:46→17:44)
[2025-03-06] MEDS: AMIODARONE HCL 200 MG TABLET PO ×2 (08:46→21:35)
[2025-03-06] MEDS: APIXABAN 2.5 MG TABLET 5 MG PO ×2 (08:46→21:36)
[2025-03-06] MEDS: INSULIN GLARGINE (Lantus) 5 UNIT/0.05 ML (PER 5 UNITS) 20 UNIT SC (08:47)
--- NOTE | 2025-03-06 09:45 | ESPR_ITS ---
<Statement entered by Isai Gandhi MD - 03/07/25 15:59> I have reviewed the note and agree with the resident's assessment & plan with exceptions as below. I have personally reviewed labs, imaging, home meds/prior records, examined the patient, formulated and discussed management plan with the IM team. Patient examined at bedside today. No acute overnight events. Patient reports he continues to improve. Will continue with antibiotics at this time, creatinine function improving, will follow-up blood cultures and continue antibiotics for pneumonia. Anticipate discharge in the next 24 to 48 hours. Isai Gandhi, PGY-2 Internal Medicine Documentation for date of: 03/06/25 Subjective Subjective Interval history: Patient seen and examined bedside. She is AOx3. She has had two solid BMs. She is pleasant. She denies pain with urination, SOB, chest pain, NVD, fevers, chills, night sweats. She is unsure of what happened to make her altered yesterday. Exam Vital Signs Temp Pulse Resp BP Pulse Ox O2 Del Method O2 Flow Rate 97.4 F 60 18 105/61 93 L Room Air 1 03/06/25 08:00 03/06/25 09:43 03/06/25 08:00 03/06/25 08:46 03/06/25 08:00 03/06/25 08:00 03/06/25 07:13 Narrative Exam GENERAL APPEARANCE: AOx3, well-developed, well-nourished, no acute distress HEENT: Normocephalic, atraumatic; pupils equal, round, reactive to light; EOMI; mucous membranes pink, moist; oropharynx clear NECK: Supple LUNGS: Coarse lungs sounds L>R, Late high pitched stridor, decreased air movement, no rales, no rhonchi HEART: Bradycardic, regular rhythm; normal S1, S2; no murmurs ABDOMEN: non distended; normal BS; soft, no tenderness, no guarding, no rebound; no masses, no organomegaly, no hernia BACK: no CVA tenderness EXTREMITIES: Left arm in a sling, ecchymosis to the base of the left great toe; no edema, NEUROLOGIC: drowsy but arousable; resting tremor noted; cranial nerves II-XII grossly intact PSYCHIATRIC: appropriate mood and affect SKIN: warm, dry, normal color; no rashes Objective Labs 03/07/25 04:58 03/07/25 04:58 Labs: Laboratory Results - last 24 hr 03/05/25 03/05/25 03/05/25 10:14 10:31 16:50 WBC RBC Hgb Hct MCV MCH MCHC RDW Std Deviation Plt Count Neut % (Auto) Lymph % (Auto) [place] % (Auto) Eos % (Auto) Baso % (Auto) Neut # (Auto) Lymph # (Auto) [place] # (Auto) Eos # (Auto) Baso # (Auto) Immature Gran # (Auto) Absolute Nucleated RBC Immature Gran % Nucleated RBC % PT 11.0 INR 1.0 Sodium Potassium Chloride Carbon Dioxide Anion Gap BUN Creatinine Estim Creat Clear Calc eGFR BUN/Creatinine Ratio Glucose Estimated Ave Glu mg/dL Hemoglobin A1c Calculated Osmolality Lactic Acid 1.4 Calcium Corrected Calcium Phosphorus Magnesium Total Bilirubin AST ALT Alkaline Phosphatase Total Protein Albumin Globulin Albumin/Globulin Ratio Procalcitonin 0.70 H TSH Ur Collection Type Catheter Urine Color Yellow Urine Clarity Clear Urine pH 5.5 Ur Specific [place] 1.024 Urine Protein Negative Urine Glucose (UA) Negative Urine Ketones Negative Urine Blood Negative Urine Nitrite Negative Urine Bilirubin Negative Urine Urobilinogen (Auto) Negative Ur Leukocyte Esterase Negative Urine RBC 1 Urine WBC 1 Ur Squamous Epith Cells 3 Urine Bacteria None Ur Culture Indicated? Not Indicated 03/05/25 03/06/25 03/06/25 20:25 04:46 04:46 WBC 14.9 H D RBC 3.80 L Hgb 11.2 L Hct 36.3 MCV 96 MCH 29.5 MCHC 30.9 L RDW Std Deviation 58.0 H Plt Count 171 D Neut % (Auto) 79 Lymph % (Auto) 12 [place] % (Auto) 5 Eos % (Auto) 3 Baso % (Auto) 1 Neut # (Auto) 11.8 H Lymph # (Auto) 1.8 [place] # (Auto) 0.7 Eos # (Auto) 0.4 Baso # (Auto) 0.1 Immature Gran # (Auto) 0.07 H Absolute Nucleated RBC 0.00 Immature Gran % 1 H Nucleated RBC % 0 PT INR Sodium 139 139 Potassium 4.9 D 4.4 D Chloride 107 103 Carbon Dioxide 24.4 26.9 Anion Gap 8 9 BUN 22 26 H Creatinine 1.6 H 1.6 H Estim Creat Clear Calc 35.0 L 34.4 L eGFR 34 L 34 L BUN/Creatinine Ratio 14 16 Glucose [address] Glu mg/dL 197 H Hemoglobin A1c 8.5 H Calculated Osmolality 285 288 Lactic Acid Calcium 9.2 9.0 Corrected Calcium 9.6 9.5 Phosphorus 3.9 3.7 Magnesium 1.6 Total Bilirubin 0.6 AST 25 ALT < 7 L Alkaline Phosphatase 79 Total Protein 6.1 Albumin 3.5 D 3.4 Globulin 2.7 Albumin/Globulin Ratio 1.3 Procalcitonin TSH 3.41 Cancelled Ur Collection Type Urine Color Urine Clarity Urine pH Ur Specific [place] Urine Protein Urine Glucose (UA) Urine Ketones Urine Blood Urine Nitrite Urine Bilirubin Urine Urobilinogen (Auto) Ur Leukocyte Esterase Urine RBC Urine WBC Ur Squamous Epith Cells Urine Bacteria Ur Culture Indicated? ABG Interpretation ABG results: 03/05/25 08:55 ABG pH 7.37 ABG pCO2 45 ABG pO2 72 L ABG HCO3 26 ABG O2 Saturation 95 ABG Base Excess 0 Quality Measures Quality Measures sepsis Current suspected stage: sepsis Possible source: pulmonary Blood cultures ordered: completed in ED Antibiotic ordered: Yes Advance care planning discussed with:: patient Assessment & Plan Assessment Current Active Medications: Generic Name Dose Route Start Last Admin Trade Name Freq PRN Reason Stop Dose Admin Acetaminophen 650 mg 03/05/25 15:56 03/05/25 16:22 Acetaminophen 325 Mg Tablet PO 04/04/25 15:55 650 mg Q6H PRN Administration Fever >101.5 or for pain 1-3 Albuterol/Ipratropium 3 ml 03/05/25 15:56 Albuterol/Ipratropium (Duoneb) Rt Fidelina 3 Ml Nebu INH 04/04/25 18:59 Q6HRRT PRN SHORTNESS OF BREATH OR WHEEZE Amiodarone HCl 200 mg 03/06/25 09:00 03/06/25 08:46 Amiodarone Hcl 200 Mg Tablet PO 04/05/25 08:59 200 mg BID SHANE Administration Apixaban 5 mg 03/05/25 21:00 03/06/25 08:46 Apixaban 2.5 Mg Tablet PO 04/04/25 20:59 5 mg BID SHANE Administration Carbidopa/Levodopa 1 tab 03/05/25 22:00 03/06/25 05:14 Carbidopa/Levodopa Cr 50/200 Tabcr PO 04/04/25 21:59 1 tab TID SHANE Administration Dextrose 25 ml 03/05/25 16:34 Dextrose 50%-Water Inj 50 Ml Syringe IV 04/04/25 16:33 Q15MIN PRN BG 50-70 responsive npo pt Dextrose 50 ml 03/05/25 16:34 Dextrose 50%-Water Inj 50 Ml Syringe IV 04/04/25 16:33 Q15MIN PRN BG <50 OR BG <70 & pt unresponsive Gabapentin 100 mg 03/06/25 06:00 03/06/25 05:13 Gabapentin 100 Mg Capsule PO 04/05/25 05:59 100 mg TID SHANE Administration Glucagon 1 mg 03/05/25 16:34 Glucagon Inj 1 Mg Vial IM Q15MIN PRN BG <70, and no IV access Hydromorphone HCl 0.25 mg 03/05/25 16:01 03/06/25 08:56 Hydromorphone Inj 2 Mg/Ml Vial IVP 03/10/25 16:00 0.25 mg Q2H PRN Administration PAIN SCALE 4-10(Mod-Sev Ceftriaxone Sodium/Dextrose 1 gm in 50 mls @ 100 mls/hr 03/06/25 09:00 03/06/25 08:46 Rocephin/D5w 1gm Iv Premix IV 03/13/25 08:59 100 mls/hr QDAY SHANE Administration Azithromycin 500 mg/ Sodium 250 mls @ 250 mls/hr 03/06/25 09:00 Chloride IV 03/13/25 08:59 QDAY SHANE Insulin Glargine 20 unit 03/06/25 09:00 03/06/25 08:47 Insulin Glargine (Lantus) 5 Unit/0.05 Ml (Per 5 Units) SC 04/05/25 08:59 20 unit QDAY SHANE Administration Insulin Human Lispro 0 unit 03/05/25 17:00 03/06/25 08:46 Insulin Lispro (Admelog) 1 Unit/0.01 Ml Unit SC 04/04/25 16:59 4 unit AC SHANE Administration Protocol Levothyroxine Sodium 50 mcg 03/06/25 06:00 03/06/25 05:13 Levothyroxine Sodium 25 Mcg Tablet PO 04/05/25 05:59 50 mcg ACBR SHANE Administration Metoprolol Succinate 100 mg 03/05/25 21:00 03/05/25 20:42 Metoprolol Succinate Xl 25 Mg Tabcr PO 04/04/25 20:59 Not Given QPM SHANE Ondansetron HCl 4 mg 03/05/25 15:56 Ondansetron Inj 2 Mg/Ml Inj 2 Ml IVP 04/04/25 15:55 Q6H PRN NAUSEA OR VOMITING Protocol Pramipexole Dihydrochloride 0.25 mg 03/06/25 06:00 03/06/25 05:13 Pramipexole 0.25 Mg Tablet PO 04/05/25 05:59 0.25 mg TID SHANE Administration Sennosides 1 tab 03/05/25 15:56 Senna Tablet PO 04/04/25 15:55 QDAY PRN constipation Protocol Plan 74 y/o F with PMHx significant for A-fib, sick sinus syndrome with pacemaker, HFpEF, COPD, insulin-dependent diabetes, Parkinson's, HTN presented to ED with chief complaint of altered mental status x 1 day, admitted for sepsis. Admitted to Tele on ICU overflow #Sepsis 2/2 to PNA #Community Acquired PNA likely 2/2 to gram neg vs atypical organisms #Acute on chronic hypoxic respiratory failure 2/2 to above Patient presented with chief complaint of acute AMS which resolved prior to treatment. O2 sat: 90, BP 105/45, RRs: 15. UA was clean without signs of infection. Chest xray showed mild heart failure and suspicious for early pneumonia left upper lobe. Proca.7. Could be due to recent fractures, causing pain with breathing/movement. WBCs downtrending 8/5. Plan: -Telemetry -Azithromycin 500mg IV QD -Ceftriaxone 1g IV QD -FUP Cocci serology: -FUP Sputum culture -FUP Influenza A+B screen -FUP Blood cx: no growth at 48 hours #Left sided fractures Do not want patient sedated due to AMS. -Acetominophen for pain -Diluadid for breakthrough pain 7-11 #ALLYSON on CKD Patient has history of CKD. Kidney function at baseline: BUN 34, creatinine 2.1, EGFR 24. Likely prerenal in the setting of dehydration and sepsis. Patient received 2 L bolus normal saline. -IVF as above -Avoid nephrotoxins -Monitor daily labs -Renally dose meds -FUP renal panel--> Appears to be at baseline (03/06) #HFpEF, last ECHO 04/2024, EF 60% #A-fib #Hx of sick sinus syndrome? Patient has history of heart failure with preserved ejection fraction, A-fib. Home meds held in setting of sepsis with hypotension, except Eliquis. -Home med: Eliquis p.o. 5 mg twice daily -Metoprolol succinate 100mg PO -Telemetry -Strict I's and O's -IVF as above, then reassess #COPD Patient has history of COPD controlled with outpatient medication. Patient has home O2, does not require to use continuously. Patient saturating well on RA. -O2, titrate to maintain saturation greater than 88% -DuoNebs as needed #Insulin-dependent diabetes Patient has medical history of insulin-dependent diabetes. Last A1c 6.9% as of 09/2024. Blood glucose <192 -Insulin sliding scale (Glargine 20 units SC QD) -Recheck A1c #Parkinson's Patient has history of Parkinson's disease, well-controlled with carbidopa?levodopa. Not currently showing active symptoms. -Continue Carbidopa/Levadopa DVT prophylaxis: Eliquis GI prophylaxis: None Diet: Cardiac Lines: Peripheral IV Code status: Full code Plan of care discussed with senior resident Dr. Gandhi PGY?[address] Dwyer. Dandy Kim MD PGY-1 Attending Provider Attestation/Addendum I have discussed and was present for the essential components of the history, physical examination, diagnosis, and treatment plan with the resident. I agree with the patient's care as documented by the resident and amended herein by me. Cyrus Dwyer DO. Although this document has been carefully reviewed, there may still be some phonetic and other typographical errors. These errors are purely grammatical due to imperfections in the software program and should not be construed in any way to compromise the substance of the patient's medical care during this visit.
[2025-03-06] MEDS: AZITHROMYCIN INJ 500 MG in SODIUM CHLORIDE 0.9% 250 ML 250 ML 250 MG IV (09:54)
--- NOTE | 2025-03-06 11:48 | PC.SS ---
Patient is a 74 year old female presenting to the hospital for sepsis. ASSOCIATE ENTERTAINMENT EDITOR made contact with patient at bedside and explained role and reason for visit. ASSOCIATE ENTERTAINMENT EDITOR confirmed demographic information. Patient stated that her next of kin is Elvis Ryan phone: [phone]. Patient confirmed that she lives with . Patient stated that she uses oxygen at home when needed, she reports using 5L, and provider is [place]. Patient also has a wheelchair and a cane that she did not use prior to hospitalization but stated that she will now need to use them after she leaves hospital. Patient stated that her PCP is Dr. Ha and her most recent appointment was last Wednesday. 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 Clarke, sees Dr. Pitt for kidney. Patient stated that once medically cleared she would like to return home with . ASSOCIATE ENTERTAINMENT EDITOR informed patient if she is needing any DME or resources to reach out to SS. Next of kin: mega Leal phone: [phone] PCP: Dr. Ames D/C: home
[2025-03-06 11:57] LABS: Cocci Serology, IgM Negative (Negative)
--- NOTE | 2025-03-06 14:39 | PC.SS ---
Rounding note: IV antibiotic, follow up on culture.
[2025-03-06] MEDS: METOPROLOL SUCCINATE XL 25 MG TABCR 100 MG PO (21:35)
[2025-03-07] VITALS: BP 106/61; PULSE 60; RESP 20; TEMP 36.7; O2SAT 92
[2025-03-07] MEDS: HYDROmorphone INJ 2 MG/ML VIAL 0.25 MG IVP (02:56)
[2025-03-07 04:00] VITALS: BP 123/53; PULSE 60; RESP 22; TEMP 36.4; O2SAT 93
[2025-03-07] MEDS: LEVOTHYROXINE SODIUM 25 MCG TABLET 50 MCG PO (05:08)
[2025-03-07] MEDS: CARBIDOPA/LEVODOPA CR 50/200 TABCR 1 TAB PO (05:08)
[2025-03-07] MEDS: PRAMIPEXOLE 0.25 MG TABLET PO (05:08)
[2025-03-07] MEDS: GABAPENTIN 100 MG CAPSULE PO (05:08)
[2025-03-07 06:00] VITALS: BMI 28.8
[2025-03-07 06:04] LABS: Basophils # (Auto) 0.1 Thou/mm3 (0.0-0.2); Basophils % (Auto) 1 % (0-2.5); Eosinophils # (Auto) 0.3 Thou/mm3 (0.0-0.5); Eosinophils % (Auto) 3 % (0-10); Hematocrit 36.4 % (36.0-46.0); Hemoglobin 11.3 g/dL (12.0-16.0); Immature Granulocytes Auto 0.07 Thou/mm3 (0.00-0.00); Lymphocytes # (Auto) 2.1 Thou/mm3 (1.0-4.8); Lymphocytes % (Auto) 18 % (10-50); Mean Corpuscular HGB Conc 31.0 g/dl (31.0-37.0); Mean Corpuscular Hemoglobin 28.8 pg (25.0-35.0); Mean Corpuscular Volume 93 fL (80-100); Monocytes # (Auto) 0.7 Thou/mm3 (0.0-0.8); Monocytes % (Auto) 6 % (0-12); Neutrophils # (Auto) 8.9 Thou/mm3 (1.8-7.7); Neutrophils % (Auto) 73 % (37-80); Nucleated Red Blood Cell # 0.00 Thou/mm3 (0.00-0.00); Nucleated Red Blood Cell % 0 /100 WBC (0); Platelet Count 211 Thou/mm3 (140-440); RDW Standard Deviation 56.3 fL (36.4-46.3); Red Blood Count 3.92 Miln/mm3 (4.00-5.20); White Blood Count 12.2 Thou/mm3 (3.6-11.0)
[2025-03-07 06:44] LABS: Alanine Aminotransferase < 7 U/L (10-49); Albumin, Serum 3.5 gm/dL (3.4-4.8); Albumin/Globulin Ratio 1.2 (1.2-2.2); Alkaline Phosphatase 80 U/L (46-116); Anion Gap 9 (7-16); Aspartate Amino Transferase 20 U/L (0-34); BUN/Creatinine Ratio 19 Ratio (12-20); Bilirubin,Total 0.7 mg/dL (0.3-1.2); Blood Urea Nitrogen 23 mg/dL (9-23); Calcium 9.0 mg/dL (8.3-10.6); Calcium (Corrected) 9.4 mg/dL (8.5-10.1); Carbon Dioxide 26.4 mMol/L (20.0-31.0); Chloride 104 mMol/L (98-107); Creatinine (Component) 1.2 mg/dL (0.6-1.3); Estimated Creatinine Clearance 45.7 mL/min (>60); Globulin 2.9 gm/dL (2.3-3.5); Glucose 192 mg/dL (74-106); Magnesium 1.9 mg/dL (1.6-2.6); Osmolality,Calculated 286 (275-295); Phosphorous 3.0 mg/dL (2.4-5.1); Potassium 4.1 mMol/L (3.4-5.1); Sodium 139 mMol/L (136-145); Total Protein 6.4 gm/dL (5.7-8.2); eGFR 48 See Note
[2025-03-07 06:55] VITALS: PULSE 60; RESP 18; O2SAT 93; O2SAT 97
[2025-03-07 08:00] VITALS: BP 142/60; PULSE 60; RESP 17; TEMP 36.3; O2SAT 97
[2025-03-07] MEDS: APIXABAN 2.5 MG TABLET 5 MG PO (08:27)
[2025-03-07 08:28] VITALS: BP 123/53; PULSE 60
[2025-03-07] MEDS: INSULIN LISPRO (AdmeLOG) 1 UNIT/0.01 ML UNIT SC (08:28)
[2025-03-07] MEDS: AMIODARONE HCL 200 MG TABLET PO (08:28)
[2025-03-07] MEDS: INSULIN GLARGINE (Lantus) 5 UNIT/0.05 ML (PER 5 UNITS) 20 UNIT SC (08:28)
[2025-03-07] MEDS: cefTRIAXone/D5w 1gm IV premix 1 GM/50 ML BAG IV (08:28)
[2025-03-07 11:23] LABS: Cocci Serology, IgG Negative (Negative)
--- NOTE | 2025-03-07 15:25 | ESDS_ITS ---
<Statement entered by Mihaela Loredo MD - 03/08/25 17:22> Patient was seen and examined at bedside. Agree on the DC plan on this note. - Patient's plan and care discussed with my attending, Dr. Yuliya Loredo MD Internal Medicine PGY-3 Planned Discharge Date 03/07/25 DS: Providers Provider Date of admission: 03/05/25 11:11 Primary care physician: Tequila aH MD Admitting Provider: Jam Dwyer DO Attending Provider on Admission: Jam Dwyer DO Attending Provider on DC: RESIDENT Uzair Discharging Provider: RESIDENT Uzair DS: Diagnosis Problem List Completed Was Problem List Reviewed/Reconciled?: Yes Hospital Course Hospital Course Hospital course: 74 y/o F with PMHx significant for A-fib, sick sinus syndrome with pacemaker, HFpEF, COPD, insulin-dependent diabetes, Parkinson's, HTN and left radius and humerus fractures 2 days prior presented to ED with chief complaint of altered mental status x 1 day. In the ED she was somnolent and hypoxic with elevated WBCs. CXR was suspicious for early SOUMYA PNA. Blood cultures were ordered and Rocephin D5 and azithromycin were initiated. She was admitted for sepsis 2/2 PNA and ACHRF. When evaluated patient was AOx3, lungs and WBCs improved blood cultures showed no signs of infection, creatinine and kidney function resolved to baseline and patient showed no signs of AMS or delirium. She is a safe d ischarge and encouraged to come back if symptoms recur. Discharge Instructions: -Follow-up with your primary care provider within 1 week from discharge -Follow-up with an orthopedic surgeon within 1 week from discharge -Continue your home medications as prescribed -We prescribed you an antibiotics Augmentin and Azithromycin, take as prescribed -In case of worsening of your symptoms please return to the ED as soon as possible -If possible try to decrease your intake of acetaminophen/codeine as possible as it may make you confused. Try starting Tylenol instead for mild pain. -Schedule an appointment with orthopedic surgeon, Dr. Lal outpatient #Sepsis 2/2 to PNA #Community Acquired PNA likely 2/2 to gram neg vs atypical organisms #Acute on chronic hypoxic respiratory failure 2/2 to above #Left humerous and radius fractures #HFpEF, last ECHO 04/2024, EF 60% #A-fib #Hx of sick sinus syndrome? #COPD #Insulin-dependent diabetes #Parkinson's Patient's plan and care discussed with my attending, Dr. Dwyer, and supervising residents Mihaela Loredo MD, and MD Dandy Garcia MD Internal Medicine PGY-1 Time Spent with Patient Time attestation: Total time spent providing and/or coordinating discharge services: Time spent: Greater than 30 minutes Exam Vital Signs Temp Pulse Resp BP Pulse Ox O2 Del Method O2 Flow Rate 97.3 F 60 17 123/53 L 97 Nasal Cannula 1 03/07/25 08:00 03/07/25 08:28 03/07/25 08:00 03/07/25 08:28 03/07/25 08:00 03/07/25 08:00 03/07/25 08:00 Narrative Exam GENERAL APPEARANCE: AOx3, well-developed, well-nourished, no acute distress HEENT: Normocephalic, atraumatic; pupils equal, round, reactive to light; EOMI; mucous membranes pink, moist; oropharynx clear NECK: Supple LUNGS: Improved lungs sounds, minor wheeezing, decreased air movement, no rales, no rhonchi HEART: Bradycardic, regular rhythm; normal S1, S2; no murmurs ABDOMEN: non distended; normal BS; soft, no tenderness, no guarding, no rebound; no masses, no organomegaly, no hernia BACK: no CVA tenderness EXTREMITIES: Left arm in a sling, ecchymosis to the base of the left great toe; no edema, NEUROLOGIC: drowsy but arousable; resting tremor noted; cranial nerves II-XII grossly intact PSYCHIATRIC: appropriate mood and affect SKIN: warm, dry, normal color; no rashes Discharge Plan Plan Patient Disposition: HOME (Self Care) Patient condition on transfer: Stable Care Plan Goals: Discharge instructions -Follow-up with your primary care provider within 1 week from discharge -Follow-up with an orthopedic surgeon within 1 week from discharge -Continue your home medications as prescribed -We prescribed you an antibiotics Augmentin and Azithromycin, take as prescribed -In case of worsening of your symptoms please return to the ED as soon as possible -If possible try to decrease your intake of acetaminophen/codeine as possible as it may make you confused. Try starting Tylenol instead for mild pain. -Schedule an appointment with orthopedic surgeon, Dr. Lal outpatient Prescriptions/Referrals Prescriptions/Med Rec: New amoxicillin-pot clavulanate 875-125 mg tablet 1 tab PO BID 5 Days Qty: 10 0RF Rx Instructions: Take one tablet by mouth twice a day Continued furosemide [Lasix] 40 MG tablet 40 mg PO QDAY Qty: 0 Eliquis 5 mg tablet 5 mg PO BID Patient Comments: TAKE 1 TABLET BY MOUTH TWICE DAILY pramipexole 0.25 mg tablet 0.25 mg PO TID amiodarone 200 mg tablet 200 mg PO BID levothyroxine 50 mcg tablet 50 mcg PO DAILY Patient Comments: TAKE 1 TABLET BY MOUTH DAILY IN THE MORNING ferrous sulfate [FeroSul] 325 mg (65 mg iron) tablet 325 mg PO DAILY Patient Comments: TAKE 1 TABLET BY MOUTH DAILY metoprolol succinate 100 mg tablet extended release 24 hr 100 mg PO DAILY Patient Comments: TAKE 1 TABLET BY MOUTH DAILY carbidopa-levodopa 50-200 mg tablet extended release 1 tab PO TID hydrocodone-acetaminophen 7.5-325 mg tablet 0.5 tab PO Q6H PRN (Reason: severe back pain) Patient Comments: TAKE 1/2 TABLET BY MOUTH EVERY 6 HOURS NEEDED FOR SEVERE BACK PAIN Centrum 18-400 mg-mcg Tablet 1 tab PO QDAY gabapentin 100 mg capsule 100 mg PO TID Qty: 30 0RF insulin degludec [Tresiba FlexTouch U-100] 100 unit/mL (3 mL) insulin pen 50 unit subcut QPM Qty: 15 0RF Baqsimi 3 mg/actuation spray,non-aerosol 3 mg intranasal QDAY PRN (Reason: hypoglycemia) Qty: 2 0RF Discontinued sennosides [senna] 8.6 mg tablet 8.6 mg PO HS Patient Comments: TAKE 1 TO 2 TABLETS BY MOUTH AT BEDTIME NEEDED Rx Instructions: 1-2 times per day acetaminophen-codeine 300-30 mg tablet 1 tab PO Q8H PRN (Reason: pain) Qty: 20 0RF Patient Comments: only taken once. Caused AMS then brought to ED Referrals: Tequila Ha MD [Primary Care Provider] - Perico Lal MD [Physician] - Patient/Caregiver Discharge Instructions Education Materials: ED Pneumonia (Adult) Print Language: Tamazight Stand Alone Forms: Shana Award Info., Patient Portal Info Letter Discharge Order Discharge Orders: Discharge (Routine); Ordered 03/07/25 Ordered By: Isai Gandhi Quality Discharge Quality Measures VTE prophylaxis Attestestation MD Attestation I have discussed and was present for the essential components of the discharge history, physical examination, diagnosis, and discharge treatment plan with the resident. I agree with the patient's discharge care as documented by the resident and amended herein by me. Cyrus Dwyer DO. The patient understood all discharge instructions, all questions were answered satisfactorily. The patient was instructed to return to the Emergency Department is symptoms worsened or persisted. Patient discharged on a short course of Augmentin and azithromycin, see med rec above. All questions were answered satisfactorily, patient significantly improved on day of discharge. Although this document has been carefully reviewed, there may still be some phonetic and other typographical errors. These errors are purely grammatical due to imperfections in the software program and should not be construed in any way to compromise the substance of the patient's medical care during this visit.
== END 2025-03-07 11:00 | disposition home or self-care (01) | DRG 871 ==
LOC: SERX 11:18 → SERHOLD 11:27 → S2SX 15:50 → S3SX 21:58
PROVIDERS: Admitting Provider Student in an Organized Health Care Education/Training Program; Emergency Provider Emergency Medicine; PCP Internal Medicine; Visit Provider Student in an Organized Health Care Education/Training Program
DX: A41.9 Sepsis, unspecified organism (principal); J18.9 Pneumonia, unspecified organism; J96.21 Acute and chronic respiratory failure with hypoxia; S42.212A Unspecified displaced fracture of surgical neck of left humerus, initial encounter for closed fracture; J44.0 Chronic obstructive pulmonary disease with (acute) lower respiratory infection; N17.9 Acute kidney failure, unspecified; I13.0 Hypertensive heart and chronic kidney disease with heart failure and stage 1 through stage 4 chronic kidney disease, or unspecified chronic kidney disease; I50.32 Chronic diastolic (congestive) heart failure; G20.A1 Parkinson's disease without dyskinesia, without mention of fluctuations; I95.9 Hypotension, unspecified; N18.9 Chronic kidney disease, unspecified; E11.22 Type 2 diabetes mellitus with diabetic chronic kidney disease; I48.91 Unspecified atrial fibrillation; E86.0 Dehydration; I45.10 Unspecified right bundle-branch block; Z79.01 Long term (current) use of anticoagulants; Z87.891 Personal history of nicotine dependence; Z79.4 Long term (current) use of insulin; Z79.890 Hormone replacement therapy; Z95.0 Presence of cardiac pacemaker; W18.30XA Fall on same level, unspecified, initial encounter
CPT/HCPCS: 36415; 36600; 71045; 80053; 80069; 81001; 82803; 83036; 83605; 83690; 83735; 83880; 84100; 84145; 84443; 84484; 85025; 85610; 86331; 86635; 87040; 87081; 87205; 87502; 87811; 93005; 93225; 94640; 96365; 96366; 99283; A9270; J0456; J0612; J0696; J1171; J1815; J1938; J7030; J7050

== ENCOUNTER → 2025-03-19 | Outpatient (CLI) | payer MEDICARE, OTHER, SELFPAY ==
[2025-03-19 11:20] LABS: Collection Type, Urine Clean Catch
[2025-03-19 12:01] LABS: Basophils # (Auto) 0.1 Thou/mm3 (0.0-0.2); Basophils % (Auto) 1 % (0-2.5); Eosinophils # (Auto) 0.3 Thou/mm3 (0.0-0.5); Eosinophils % (Auto) 2 % (0-10); Hematocrit 37.9 % (36.0-46.0); Hemoglobin 11.7 g/dL (12.0-16.0); Immature Granulocytes Auto 0.10 Thou/mm3 (0.00-0.00); Lymphocytes # (Auto) 2.4 Thou/mm3 (1.0-4.8); Lymphocytes % (Auto) 15 % (10-50); Mean Corpuscular HGB Conc 30.9 g/dl (31.0-37.0); Mean Corpuscular Hemoglobin 29.3 pg (25.0-35.0); Mean Corpuscular Volume 95 fL (80-100); Monocytes # (Auto) 0.9 Thou/mm3 (0.0-0.8); Monocytes % (Auto) 5 % (0-12); Neutrophils # (Auto) 12.2 Thou/mm3 (1.8-7.7); Neutrophils % (Auto) 76 % (37-80); Nucleated Red Blood Cell # 0.00 Thou/mm3 (0.00-0.00); Nucleated Red Blood Cell % 0 /100 WBC (0); Platelet Count 329 Thou/mm3 (140-440); RDW Standard Deviation 57.2 fL (36.4-46.3); Red Blood Count 4.00 Miln/mm3 (4.00-5.20); White Blood Count 16.0 Thou/mm3 (3.6-11.0)
[2025-03-19 12:07] LABS: Bilirubin,Urine Negative (Negative); Blood,Urine Negative (Negative); Clarity,Urine Clear (Clear/Hazy); Color,Urine Colorless (Lt Yel-Yel); Glucose, Urine Negative (Negative); Hyaline Casts,Urine < 1 /hpf (0-1); Ketones,Urine Negative (Negative); Leukocyte Esterase,Urine Negative (Negative); Nitrite,Urine Negative (Negative); PH,Urine 6.0 (5.0-7.0); Protein,Urine Negative (Neg - Trace); RBC,Urine 4 /hpf (0-3); Specific Gravity,Urine 1.006 (1.001-1.035); Squamous Epithelial Cell,Urine 1 /hpf (0-5); Urobilinogen,Urine Negative mg/dL (0.0-1.0); WBC,Urine 3 /hpf (0-5)
[2025-03-19 12:09] LABS: Glucose Estimated Average 194 mg/dL (80-131); Hemoglobin A1C 8.4 % Hgb (4.8-6.0)
[2025-03-19 12:13] LABS: Albumin, Serum 3.8 gm/dL (3.4-4.8); Anion Gap 7 (7-16); BUN/Creatinine Ratio 12 Ratio (12-20); Blood Urea Nitrogen 12 mg/dL (9-23); Calcium 9.7 mg/dL (8.3-10.6); Calcium (Corrected) 9.9 mg/dL (8.5-10.1); Carbon Dioxide 29.7 mMol/L (20.0-31.0); Chloride 101 mMol/L (98-107); Creatinine (Component) 1.0 mg/dL (0.6-1.3); Glucose 132 mg/dL (74-106); Osmolality,Calculated 277 (275-295); Phosphorous 2.6 mg/dL (2.4-5.1); Potassium 3.8 mMol/L (3.4-5.1); Sodium 138 mMol/L (136-145); eGFR 59 See Note
== END | disposition home or self-care (01) ==
LOC: COPL 10:12
PROVIDERS: PCP Internal Medicine; Referring Provider Internal Medicine Nephrology; Visit Provider Internal Medicine Nephrology
DX: N17.9 Acute kidney failure, unspecified (principal); E11.22 Type 2 diabetes mellitus with diabetic chronic kidney disease; N18.30 Chronic kidney disease, stage 3 unspecified
CPT/HCPCS: 36415; 80069; 81001; 83036; 85025

== ENCOUNTER → 2025-04-09 | Outpatient (CLI) | payer MEDICARE, OTHER, SELFPAY ==
--- NOTE | 2025-04-09 10:48 | EKG_ITS ---
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 : 1950 Requested By: Everett Pereyra Order Number: [id number] Reading MD: Everett Pereyra Measurements Intervals [place] Rate: 60 P: NM: QRS: 7 QRSD: 112 T: -59 QT: 444 QTc: 444 Interpretive Statements SUPRAVENTRICULAR RHYTHM MODERATE INTRAVENTRICULAR CONDUCTION DELAY [110+ ms QRS DURATION] ST DEVIATION AND MODERATE T-WAVE ABNORMALITY, CONSIDER LATERAL ISCHEMIA [-0.1+ mV T WAVE IN I/aVL/V5/V6] Compared to ECG 03/05/2025 08:40:20 Supraventricular rhythm now present Intraventricular conduction delay now present Indeterminate axis no longer present Right bundle-branch block no longer present T-wave abnormality still present Possible ischemia still present /store/S0/[id number].pdf
[2025-04-09 11:14] LABS: Basophils # (Auto) 0.1 Thou/mm3 (0.0-0.2); Basophils % (Auto) 1 % (0-2.5); Eosinophils # (Auto) 0.3 Thou/mm3 (0.0-0.5); Eosinophils % (Auto) 2 % (0-10); Hematocrit 36.0 % (36.0-46.0); Hemoglobin 11.0 g/dL (12.0-16.0); Immature Granulocytes Auto 0.07 Thou/mm3 (0.00-0.00); Lymphocytes # (Auto) 1.4 Thou/mm3 (1.0-4.8); Lymphocytes % (Auto) 10 % (10-50); Mean Corpuscular HGB Conc 30.6 g/dl (31.0-37.0); Mean Corpuscular Hemoglobin 29.2 pg (25.0-35.0); Mean Corpuscular Volume 96 fL (80-100); Monocytes # (Auto) 0.9 Thou/mm3 (0.0-0.8); Monocytes % (Auto) 7 % (0-12); Neutrophils # (Auto) 11.5 Thou/mm3 (1.8-7.7); Neutrophils % (Auto) 80 % (37-80); Nucleated Red Blood Cell # 0.00 Thou/mm3 (0.00-0.00); Nucleated Red Blood Cell % 0 /100 WBC (0); Platelet Count 284 Thou/mm3 (140-440); RDW Standard Deviation 56.6 fL (36.4-46.3); Red Blood Count 3.77 Miln/mm3 (4.00-5.20); White Blood Count 14.3 Thou/mm3 (3.6-11.0)
[2025-04-09 11:17] LABS: Glucose Estimated Average 169 mg/dL (80-131); Hemoglobin A1C 7.5 % Hgb (4.8-6.0)
[2025-04-09 11:29] LABS: Alanine Aminotransferase < 7 U/L (10-49); Albumin, Serum 3.7 gm/dL (3.4-4.8); Albumin/Globulin Ratio 1.1 (1.2-2.2); Alkaline Phosphatase 119 U/L (46-116); Anion Gap 11 (7-16); Aspartate Amino Transferase 19 U/L (0-34); BUN/Creatinine Ratio 14 Ratio (12-20); Bilirubin,Total 0.9 mg/dL (0.3-1.2); Blood Urea Nitrogen 17 mg/dL (9-23); Calcium 9.4 mg/dL (8.3-10.6); Calcium (Corrected) 9.6 mg/dL (8.5-10.1); Carbon Dioxide 28.8 mMol/L (20.0-31.0); Chloride 100 mMol/L (98-107); Creatinine (Component) 1.2 mg/dL (0.6-1.3); Globulin 3.3 gm/dL (2.3-3.5); Glucose 139 mg/dL (74-106); Osmolality,Calculated 282 (275-295); Potassium 4.3 mMol/L (3.4-5.1); Sodium 140 mMol/L (136-145); Total Protein 7.0 gm/dL (5.7-8.2); eGFR 47 See Note
== END | disposition home or self-care (01) ==
LOC: COPL 09:50
PROVIDERS: PCP Internal Medicine; Referring Provider Orthopaedic Surgery; Visit Provider Orthopaedic Surgery
DX: Z01.818 Encounter for other preprocedural examination (principal); Z01.812 Encounter for preprocedural laboratory examination; Z01.810 Encounter for preprocedural cardiovascular examination
CPT/HCPCS: 36415; 80053; 83036; 85025; 87081; 93005

== ENCOUNTER 2025-04-27 12:05 | Inpatient (IN) | payer MEDICARE, OTHER, SELFPAY ==
[2025-04-27 12:20] VITALS: BMI 29.7
[2025-04-27 12:21] VITALS: BP 105/55; PULSE 110; RESP 18; TEMP 36.4; O2SAT 94
--- NOTE | 2025-04-27 12:53 | XR_ITS ---
Examination: AP chest single view TECHNIQUE: AP portable upright chest single view Date and time: April 27, 2025, 1325 hours, comparison March 05, 2025 INDICATIONS: Onset hypertension today. FINDINGS: Mild heart failure Moderate enlargement cardiac contour. Prominent vascular congestion with early perihilar edema. Transvenous dual-chamber bipolar cardiac leads satisfactory position Prominent osteopenia IMPRESSION: Mild heart failure
--- NOTE | 2025-04-27 12:55 | EKG_ITS ---
[facility] (Formerly [facility]) Test Date: 2025-04-27 Pat Name: JOE CASTELLANO Department: Room: - Gender: Female [employer]: : 1950 Requested By: April Limon Order Number: [id number] Reading MD: April Limon Measurements Intervals [place] Rate: 60 P: 250 KS: 251 QRS: -62 QRSD: 189 T: 59 QT: 516 QTc: 516 Interpretive Statements ELECTRONIC ATRIAL PACEMAKER ELECTRONIC VENTRICULAR PACEMAKER ABNORMAL RHYTHM ECG Compared to ECG 04/09/2025 10:56:18 Supraventricular rhythm no longer present Intraventricular conduction delay no longer present T-wave abnormality no longer present Possible ischemia no longer present /store/S0/[id number]/[id number].pdf
--- NOTE | 2025-04-27 12:55 | PD.EDADULT ---
ED General RME/HPI General Chief complaint: General Adult/Misc Complain Stated complaint: Low blood pressure this morning Time Seen by Provider: 04/27/25 12:39 Arrival date/time: 04/27/25 12:05 RME / HPI RME / HPI narrative: 75-year-old female patient came in for evaluation regarding hypotension. Apparently patient had a surgery of the left shoulder 3 days ago,, and was prescribed Percocet and was advised also to resume her Eliquis and amiodarone and metoprolol today. Patient took the medication this morning. Patient was noted to be drowsy and sleepy. In the triage patient was noted to be alert and oriented x 3 however blood pressure is 105/55 heart rate of 110. Patient denies any chest pain denies any headache denies any other complaints. Patient dozes off when talking. Denies any fall. Denies any vomiting blood or blood in the stool. Related Data Home Medications ?Medication ?Instructions ?Recorded ?Confirmed furosemide 40 mg tablet (Lasix) 40 mg PO QDAY #0 tabs 06/11/17 03/05/25 apixaban 5 mg tablet (Eliquis) 5 mg PO BID 04/16/24 03/05/25 carbidopa ER 50 mg-levodopa 200 mg 1 tab PO TID 08/21/24 03/05/25 tablet,extended release metoprolol succinate 100 mg 100 mg PO DAILY 08/21/24 03/05/25 tablet,extended release 24 hr hydrocodone 7.5 mg-acetaminophen 0.5 tab PO Q6H PRN severe back pain 08/23/24 03/05/25 325 mg tablet multivitamin-ferrous 1 tab PO QDAY 08/23/24 03/05/25 fumarate-folic acid 18 mg-400 mcg tablet (Centrum) amiodarone 200 mg tablet 200 mg PO BID 03/05/25 03/05/25 ferrous sulfate 325 mg (65 mg 325 mg PO DAILY 03/05/25 03/05/25 iron) tablet (FeroSul) levothyroxine 50 mcg tablet 50 mcg PO DAILY 03/05/25 03/05/25 pramipexole 0.25 mg tablet 0.25 mg PO TID 03/05/25 03/05/25 Previous Rx's ?Medication ?Instructions ?Recorded gabapentin 100 mg capsule 100 mg PO TID #30 caps 08/24/24 glucagon 3 mg/actuation nasal 3 mg intranasal QDAY PRN 08/24/24 spray (Baqsimi) hypoglycemia #2 ea insulin degludec 100 unit/mL (3 50 unit (0.5 mL) subcut QPM #15 mL 08/24/24 mL) subcutaneous pen (Tresiba FlexTouch U-100 insulin) Allergies Allergy/AdvReac Type Severity Reaction Status Date / Time iodine Allergy Severe Swell up Verified 04/27/25 12:14 Review of Systems Review of Systems Narrative Review of Systems: Review of system reviewed and within normal limits except mentioned in HPI ED Exam Narrative Physical exam: VITAL SIGNS: Reviewed. GENERAL APPEARANCE: Alert and interactive, follows commands, no acute distress, HEAD AND FACE: Non-traumatic. ENT: PERRL, pale conjunctiva, eyelid no trauma, Mucous membrane moist. NECK: Supple, nontender, no nuchal rigidity. CHEST: No tenderness, no crepitus, no paradoxical movement, no retractions. LUNGS: Clear, well ventilated, symmetric, no rales, no wheezing, no ronchi, no stridor, good breath sounds bilaterally. HEART: Regular rate, regular rhythm, no murmur, no gallops. ABDOMEN: Soft, positive bowel sounds, nondistended, no guarding, nontender, no rebound, no masses, RECTAL: Deferred. GENITAL: Deferred. NEUROLOGICAL: Gross motor function intact sensory function intact, Appropriate for age. MUSCULOSKELETAL: low back nontender, full range of motion. EXTREMITIES: Nontender, full range of motion. SKIN: Color pale, dry, no rash, no lacerations, no abrasions, multiple bruising, multiple healed skin tear on the upper extremity LYMPHATICS: Deferred. Course Quality Measures none Orders Category Date Time Status COVID-19 Screening Questionnaire NOW Care 04/27/25 20:55 Active Decision to Admit X1 Care 04/27/25 20:55 Active EKG (ED ONLY) *Do not use* NOW Care 04/27/25 12:55 Completed Insert IV NOW Care 04/27/25 19:30 Active NPO after Midnight ONCE Care 04/27/25 20:45 Active Occult Blood,Stool (Nursing) ONCE Care 04/27/25 19:09 Active Consult to Gastroenterology Stat Cons 04/27/25 20:14 Ordered Diet NPO after Midnight Diet 04/28/25 00:01 Active EKG (ED Only) Stat Exams 04/27/25 12:55 Draft XR chest 1V Stat Exams 04/27/25 12:53 Completed B-Type Natriuretic Peptide Stat Lab 04/27/25 12:59 Completed CBC Stat Lab 04/27/25 12:59 Completed Comprehensive Metabolic Panel Stat Lab 04/27/25 12:59 Completed Occult Blood, Stool (LAB) Routine Lab 04/27/25 20:03 Completed Partial Thromboplastin Time Stat Lab 04/27/25 12:59 Completed Prothrombin Time with INR Stat Lab 04/27/25 12:59 Completed Troponin I Stat Lab 04/27/25 12:59 Completed Urinalysis, C/S if Indicated Stat Lab 04/27/25 20:11 Completed Urine Culture Stat Lab 04/27/25 20:11 Received Acetaminophen Tab [Tylenol ES Tab] Med 04/27/25 20:51 Discontinued 1,000 mg PO X1 ONE Pantoprazole Inj [Protonix Inj] Med 04/27/25 19:08 Discontinued 80 mg IVP X1 ONE Ringers Lactated 1000 ml [Lactated Ringers] 1,000 ml Med 04/27/25 12:54 Discontinued IV 999 mls/hr Ringers Lactated 1000 ml [Lactated Ringers] 1,000 ml Med 04/27/25 20:38 Active IV 999 mls/hr Sod Polystyrene Sulfon Susp [Kayexalate Susp] Med 04/27/25 19:08 Discontinued 30 gm PO X1 ONE Vital Signs Vital signs: Vital Signs Temperature 97.5 F 04/27/25 12:21 Pulse Rate 110 H 04/27/25 12:21 Respiratory Rate 18 04/27/25 12:21 Blood Pressure 105/55 L 04/27/25 12:21 Pulse Oximetry (%) 94 L 04/27/25 12:21 Oxygen Delivery Method Room Air 04/27/25 12:21 Discharge Plan Plan Patient Disposition: Admit Acute Care w/in Hospital Prescriptions/Referrals Prescriptions/Med Rec: No Action furosemide [Lasix] 40 MG tablet 40 mg PO QDAY Qty: 0 Eliquis 5 mg tablet 5 mg PO BID Patient Comments: TAKE 1 TABLET BY MOUTH TWICE DAILY pramipexole 0.25 mg tablet 0.25 mg PO TID amiodarone 200 mg tablet 200 mg PO BID levothyroxine 50 mcg tablet 50 mcg PO DAILY Patient Comments: TAKE 1 TABLET BY MOUTH DAILY IN THE MORNING ferrous sulfate [FeroSul] 325 mg (65 mg iron) tablet 325 mg PO DAILY Patient Comments: TAKE 1 TABLET BY MOUTH DAILY metoprolol succinate 100 mg tablet extended release 24 hr 100 mg PO DAILY Patient Comments: TAKE 1 TABLET BY MOUTH DAILY carbidopa-levodopa 50-200 mg tablet extended release 1 tab PO TID hydrocodone-acetaminophen 7.5-325 mg tablet 0.5 tab PO Q6H PRN (Reason: severe back pain) Patient Comments: TAKE 1/2 TABLET BY MOUTH EVERY 6 HOURS NEEDED FOR SEVERE BACK PAIN Centrum 18-400 mg-mcg Tablet 1 tab PO QDAY gabapentin 100 mg capsule 100 mg PO TID Qty: 30 0RF insulin degludec [Tresiba FlexTouch U-100] 100 unit/mL (3 mL) insulin pen 50 unit subcut QPM Qty: 15 0RF Baqsimi 3 mg/actuation spray,non-aerosol 3 mg intranasal QDAY PRN (Reason: hypoglycemia) Qty: 2 0RF Referrals: Tequila Ha MD [Primary Care Provider, Internal Medicine] - In 1 week Problem List Clinical Impression: ALLYSON (acute kidney injury), Occult blood positive stool, Anemia Patient/Caregiver Discharge Instructions Education Materials: Anemia Print Language: Bahamian Stand Alone Forms: Shana Award Info., Patient Portal Info Letter MDM Narrative MDM hospital course (for use when minimal MDM required): 75-year-old female patient came in for evaluation regarding hypotension. Apparently patient had a surgery of the left shoulder 3 days ago,, and was prescribed Percocet and was advised also to resume her Eliquis and amiodarone and metoprolol today. Patient took the medication this morning. Patient was noted to be drowsy and sleepy. In the triage patient was noted to be alert and oriented x 3 however blood pressure is 105/55 heart rate of 110. Patient denies any chest pain denies any headache denies any other complaints. Patient dozes off when talking. Denies any fall. Denies any vomiting blood or blood in the stool. Patient is laboratory significant for anemia, there is a significant drop of her hemoglobin from 11-8.9. I did a rectal exam and tested positive for occult blood. Patient's creatinine today was also noted to be elevated 2.1 BUN of 33, potassium of 5.9. Patient received Kayexalate in the emergency room. Patient also received 1 L of IV fluids. Was also started on Protonix IV. Urinalysis no UTI. Chest x-ray showed mild heart failure. EKG showed paced rhythm, ventricular rate of 60 bpm, no ST segment elevation depression noted. I spoke with Dr. Garcia, GI specialist on-call, for consult, told me to place on n.p.o. postmidnight for possible scope. In the morning Plan of care discussed with patient and family who agrees to be admitted. Chronic Illness/Social Conditions Explain: Chronic A-fib, hypertension Medication Administration(s) Medication Administration History Lactated Ringer's (Lactated Ringers) 1,000 mls @ 999 mls/hr IV .Q1H1M ONE Stop: 04/27/25 21:38 Last Admin: 04/27/25 20:55 Dose: 999 mls/hr Documented By: DT Discontinued Medications Acetaminophen (Acetaminophen 500 Mg Tablet) 1,000 mg PO X1 ONE Stop: 04/27/25 20:52 Lactated Ringer's (Lactated Ringers) 1,000 mls @ 999 mls/hr IV .Q1H1M ONE Stop: 04/27/25 13:54 Last Infusion: 04/27/25 18:29 Dose: Infused Documented By: Admin: 04/27/25 16:56 Dose: 999 mls/hr Documented By: Pantoprazole Sodium (Pantoprazole Inj 40 Mg Vial) 80 mg IVP X1 ONE Stop: 04/27/25 19:09 Last Admin: 04/27/25 19:29 Dose: 80 mg Documented By: BD Sodium Polystyrene Sulfonate (Sod Polystyrene Sulfon Susp 15 Gm/60 Ml Btl) 30 gm PO X1 ONE Stop: 04/27/25 19:09 Last Admin: 04/27/25 19:29 Dose: 30 gm Documented By: BD Consultations/Discussions re: Management Consult #1: Date/time: 04/27/25 9:[address] Garcia, discussed the case, thank you Diagnosis Differential Diagnosis ED Complaint MDM: Hypotension upper GI bleed, anemia, Diagnoses ruled out and/or further discussions: Hypotension, upper GI bleed, anemia, ALLYSON
[2025-04-27 13:16] LABS: Basophils # (Auto) 0.1 Thou/mm3 (0.0-0.2); Basophils % (Auto) 0 % (0-2.5); Eosinophils # (Auto) 0.4 Thou/mm3 (0.0-0.5); Eosinophils % (Auto) 2 % (0-10); Hematocrit 29.5 % (36.0-46.0); Hemoglobin 8.9 g/dL (12.0-16.0); Immature Granulocytes Auto 0.20 Thou/mm3 (0.00-0.00); Lymphocytes # (Auto) 1.3 Thou/mm3 (1.0-4.8); Lymphocytes % (Auto) 7 % (10-50); Mean Corpuscular HGB Conc 30.2 g/dl (31.0-37.0); Mean Corpuscular Hemoglobin 28.9 pg (25.0-35.0); Mean Corpuscular Volume 96 fL (80-100); Monocytes # (Auto) 1.0 Thou/mm3 (0.0-0.8); Monocytes % (Auto) 5 % (0-12); Neutrophils # (Auto) 15.6 Thou/mm3 (1.8-7.7); Neutrophils % (Auto) 84 % (37-80); Nucleated Red Blood Cell # 0.00 Thou/mm3 (0.00-0.00); Nucleated Red Blood Cell % 0 /100 WBC (0); Platelet Count 275 Thou/mm3 (140-440); RDW Standard Deviation 56.1 fL (36.4-46.3); Red Blood Count 3.08 Miln/mm3 (4.00-5.20); White Blood Count 18.5 Thou/mm3 (3.6-11.0)
[2025-04-27 13:40] LABS: INR 1.1 (0.9-1.3); Partial Thromboplastin Time 29.1 Seconds (22.0-36.0); Prothrombin Time 11.6 Seconds (9.0-12.2)
[2025-04-27 13:44] LABS: Alanine Aminotransferase < 7 U/L (10-49); Albumin, Serum 3.2 gm/dL (3.4-4.8); Albumin/Globulin Ratio 1.2 (1.2-2.2); Alkaline Phosphatase 89 U/L (46-116); Anion Gap 7 (7-16); Aspartate Amino Transferase 41 U/L (0-34); BUN/Creatinine Ratio 16 Ratio (12-20); Bilirubin,Total 0.5 mg/dL (0.3-1.2); Blood Urea Nitrogen 33 mg/dL (9-23); Calcium 8.9 mg/dL (8.3-10.6); Calcium (Corrected) 9.5 mg/dL (8.5-10.1); Carbon Dioxide 27.3 mMol/L (20.0-31.0); Chloride 106 mMol/L (98-107); Creatinine (Component) 2.1 mg/dL (0.6-1.3); Estimated Creatinine Clearance 26.1 mL/min (>60); Globulin 2.7 gm/dL (2.3-3.5); Glucose 148 mg/dL (74-106); Osmolality,Calculated 289 (275-295); Potassium 5.9 mMol/L (3.4-5.1); Sodium 140 mMol/L (136-145); Total Protein 5.9 gm/dL (5.7-8.2); Troponin I < 0.020 ng/mL (0.0-0.045); eGFR 24 See Note
[2025-04-27 13:48] LABS: B-Type Natriuretic Peptide 567 pg/mL (0-100)
[2025-04-27] MEDS: RINGERS LACTATED 1000 ML 1,000 ML 999 ML IV ×2 (16:56→20:55)
[2025-04-27 18:39] VITALS: BP 110/67; PULSE 67; RESP 17; O2SAT 93
[2025-04-27] MEDS: SOD POLYSTYRENE SULFON SUSP 15 GM/60 ML BTL 30 GM PO (19:29)
[2025-04-27 20:05] LABS: OBS Card Expiration Date 02/28/25; OBS Card Lot # 0124; OBS Developer Lot # 23003; OBS Performed By DIAZB; OBS QC OK? Yes; Occult Blood, Stool Positive (Negative)
[2025-04-27 20:18] LABS: Collection Type, Urine Clean Catch
[2025-04-27 20:21] LABS: Bilirubin,Urine Negative (Negative); Blood,Urine Negative (Negative); Clarity,Urine Clear (Clear/Hazy); Color,Urine Yellow (Lt Yel-Yel); Glucose, Urine Negative (Negative); Hyaline Casts,Urine 1 /hpf (0-1); Ketones,Urine Negative (Negative); Leukocyte Esterase,Urine Positive (Negative); Nitrite,Urine Negative (Negative); PH,Urine 5.5 (5.0-7.0); Protein,Urine Negative (Neg - Trace); RBC,Urine 2 /hpf (0-3); Specific Gravity,Urine 1.015 (1.001-1.035); Squamous Epithelial Cell,Urine 2 /hpf (0-5); Urobilinogen,Urine Negative mg/dL (0.0-1.0); WBC,Urine 22 /hpf (0-5)
[2025-04-27 20:25] LABS: Culture Indicated,Urine Yes
[2025-04-27 20:51] VITALS: BP 96/66; PULSE 65; RESP 14; TEMP 37; O2SAT 99
--- NOTE | 2025-04-27 21:22 | XR_ITS ---
Examination: CT abdomen and pelvis without contrast. Coronal 3-D reconstructions. Sagittal 2-D reconstructions. Date and time of exam:April 27, 2025, 8 hrs. Indications: Onset abdominal pain today CTDI: vol (mGy): 16.4 DLP: (mGycm): 900 Technique: Axial images of the abdomen have been obtained, 3 mm slice thickness Intravenous contrast material has not been administered. Low dose protocols were performed. One or more of the following dose reduction techniques were used; automated exposure control, adjustment of the mA and/or KV according to patient size, use of iterative reconstruction technique. Findings: Atelectasis in the right middle lobe Mild enlargement cardiac contour Bipolar transvenous dual-chamber cardiac leads satisfactory position No visualized liver lesions, liver mildly irregular in contour Suspicious for small gallstones Spleen not enlarged No pancreatic mass Nodular thickening left adrenal gland Moderate renal scar formation No hydronephrosis or ureteral calculi No pericecal inflammatory change Aorta normal size Mild cellulitis pattern in the subcutaneous fatty tissue anterior abdominal wall No bowel obstruction Mildly fluid distended small bowel loops Colonic diverticulosis Absent uterus Urinary bladder intact Severe osteopenia with lumbar fusion L4-S1 Moderate bilateral hip osteoarthritis Impression: Suspicious for primary hepatocellular disease Mild anasarca Recommend hepatobiliary sonography to exclude gallstones Moderate renal scar formation, no hydronephrosis or ureteral calculi No CT findings of appendicitis bowel obstruction or diverticulitis Mild small bowel ileus versus enteritis such as Crohn's disease
--- NOTE | 2025-04-27 21:22 | XR_ITS ---
Examination: CT brain head without contrast. 2-D sagittal coronal reconstructions Date and time of exam:April 27, 2025, 2145 hrs., Comparison March 03, 2025 Indications: Ground-level fall today head pain CTDI: vol (mGy):51.6 DLP: (mGycm):1026 Technique: Multiple CT axial sections of the brain have been obtained, 5 mm slice thickness. Contrast has not been administered. 2-D sagittal, coronal reconstructions have been obtained Low dose protocols were performed. One or more of the following dose reduction techniques were used; automated exposure control, adjustment of the mA and/or KV according to patient size, use of iterative reconstruction technique. Findings: No significant ventricular enlargement. Intra-axial or extra-axial hemorrhage density is not seen. No mass effect or midline shift Basal cisterns are not remarkable. Fourth ventricle is midline. Cranial vault intact. Significant left maxillary sinusitis Impression: Negative for acute hemorrhage, mass effect or midline shift
[2025-04-27 22:06] VITALS: BP 101/65; PULSE 65; RESP 14; O2SAT 99
--- NOTE | 2025-04-27 23:17 | PD.IMCONS ---
HPI Data of Consult Primary Care Provider: Tequila Ha MD Consult Narrative Reason for consult: Posthemorrhagic anemia hemoglobin hematocrit 8.9 and 29.5 Hemoccult positiv History of present illness: 75 years female with sick sinus syndrome has permanent cardiac pacemaker atrial fibrillation requiring Eliquis COPD hypertension and Parkinson disease who had a recent left shoulder replacement came into the emergency room because of somnolence and hypotension was found to have a hemoglobin hematocrit of 8.9 and 29.5 and also Hemoccult positive stool with a pro time INR of 1.1 and platelet count of 228,000 She also had a BUN of 33 and creatinine of 2.1 I have been consulted cc:: cc: Review of Systems Review of Systems Narrative Review of Systems: Denies any history of sally hematemesis melena or bright red bleeding per rectum Colonoscopy: The patient was many years ago Past Medical History Surgical History OTHER SURGICAL HX: As in the history of present illness Meds Home Medications and Allergies Home Medications ?Medication ?Instructions ?Recorded ?Confirmed ?Type furosemide 40 mg tablet (Lasix) 40 mg PO QDAY #0 tabs 06/11/17 04/28/25 History apixaban 5 mg tablet (Eliquis) 5 mg PO BID 04/16/24 04/28/25 History carbidopa ER 50 mg-levodopa 200 mg 1 tab PO TID 08/21/24 04/28/25 History tablet,extended release metoprolol succinate 100 mg 100 mg PO DAILY 08/21/24 04/28/25 History tablet,extended release 24 hr hydrocodone 7.5 mg-acetaminophen 0.5 tab PO Q6H PRN severe back pain 08/23/24 04/28/25 History 325 mg tablet multivitamin-ferrous 1 tab PO QDAY 08/23/24 04/28/25 History fumarate-folic acid 18 mg-400 mcg tablet (Centrum) amiodarone 200 mg tablet 200 mg PO BID 03/05/25 04/28/25 History ferrous sulfate 325 mg (65 mg 325 mg PO DAILY 03/05/25 04/28/25 History iron) tablet (FeroSul) levothyroxine 50 mcg tablet 50 mcg PO DAILY 03/05/25 04/28/25 History pramipexole 0.25 mg tablet 0.25 mg PO TID 03/05/25 04/28/25 History gabapentin 300 mg capsule 300 mg PO TID 04/28/25 04/28/25 History insulin degludec 100 unit/mL (3 50 unit subcut QDAY 04/28/25 04/28/25 History mL) subcutaneous pen (Tresiba FlexTouch U-100 insulin) Allergies Allergy/AdvReac Type Severity Reaction Status Date / Time iodine Allergy Severe Swell up Verified 04/27/25 12:14 Exam Vital Signs Temp Pulse Resp BP Pulse Ox O2 Del Method 98.6 F 65 14 101/65 99 Room Air 04/27/25 20:51 04/27/25 22:06 04/27/25 22:06 04/27/25 22:06 04/27/25 22:06 04/27/25 22:06 Constitutional Comments: Alert oriented Routine Respiratory Exam Comments: Normal to auscultation Routine Abdominal Exam Comments: Soft nontender Results Labs 04/28/25 07:00 04/28/25 07:00 Labs: Short CBC 04/27/25 Range/Units 12:59 WBC 18.5 H (3.6-11.0) Thou/mm3 Hgb 8.9 L (12.0-16.0) g/dL Hct 29.5 L (36.0-46.0) % Plt Count 275 (140-440) Thou/mm3 BMP 04/27/25 12:59 Sodium 140 Potassium 5.9 H Chloride 106 Carbon Dioxide 27.3 BUN 33 H Creatinine 2.1 H Glucose 148 H Calcium 8.9 Cardiac Enzymes 04/27/25 Range/Units 12:59 Troponin I < 0.020 (0.0-0.045) ng/mL Liver Function 04/27/25 Range/Units 12:59 Total Bilirubin 0.5 (0.3-1.2) mg/dL AST 41 H (0-34) U/L ALT < 7 L (10-49) U/L Alkaline Phosphatase 89 (46-116) U/L Albumin 3.2 L (3.4-4.8) gm/dL Urine 04/27/25 Range/Units 20:11 Urine Color Yellow (Lt Yel-Yel) Urine Clarity Clear (Clear/Hazy) Urine pH 5.5 (5.0-7.0) Ur Specific [place] 1.015 (1.001-1.035) Urine Protein Negative (Neg - Trace) Urine Glucose (UA) Negative (Negative) Assessment and Plan Additional Assessment & Plan Additional Plan: # Acute posthemorrhagic anemia # Hemoccult positive stool Plan Transfuse the patient of the hemoglobin drops below 7 g consent obtained for fiberoptic esophagogastroduodenoscopy with possible biopsy possible therapeutic intervention under intravenous moderate sedation If no lesion found on the upper endoscopy will consider fiberoptic colonoscopy prior to discharge Continue Eliquis and do not hold it Will follow the patient Other medical problems include Sick sinus syndrome requiring pacemaker Chronic atrial fibrillation on Eliquis metoprolol and amiodarone COPD Essential hypertension Parkinson disease Thank you very much for the opportunity to participate in the care of this patient
[2025-04-28] VITALS (20 sets, daily range): BP systolic 92–131; BP diastolic 45–73; PULSE 59–76; RESP 7–21; TEMP 36.1–36.6; O2SAT 91–100
[2025-04-28] MEDS: SODIUM CHLORIDE 0.9% 1000 ML 1,000 ML 75 ML IV (01:36)
[2025-04-28] MEDS: HYDROcodone/APAP 7.5/325 TABLET 1 TAB PO (02:15)
--- NOTE | 2025-04-28 02:26 | PC.NURSE ---
Pt cannot remember her home meds, will try to call her son Herbert in AM for med rec.
--- NOTE | 2025-04-28 05:12 | PD.HHHP ---
Documentation for date of: 04/28/25 HPI - Hospitalist History of Present Illness History of Present Illness: GI bleed History of present illness: 75-year-old female with PMHx noted for A-fib on Eliquis, sick sinus syndrome post pacemaker in May 2024, HFpEF EF 55-60%, COPD, IDDM II, Parkinson, HTN, and recent left upper extremity fracture s/p surgical repair at [facility] was brought into ED by family for concern of somnolence and hypotension. Per family patient appeared to be less responsive on morning of admission and was noted to be hypotensive. She was discharged on Percocet along with resumption of her BP medications and Eliquis 2 days ago. Patient denies any other symptoms of chest pain, shortness of breath, headache, blurry vision, abdominal pain, nausea, vomiting or diarrhea. At ED BP was noted to be 95/60 with HR of 110, labs were noted for WBC 18.5, Hgb 8.9, potassium 5.9, creatinine 2.1, BNP 570, UA WBC 22, along with positive stool occult blood. Patient's prior Hgb was around 11, GI was consulted by ED after she was given 1L of LR bolus, 80 mg pantoprazole IVP and 30 g of Kayexalate. A/P CT noted for renal scar formation along with findings suspicious for enteritis versus small bowel ileus patient will be admitted for further evaluation and care of acute anemia in setting of GI bleed along with ALLYSON. ED Course: Found to be hypotensive, 2L IVF given. EKG: Paced rhythm at rate of 60 with MS and QTc prolongation in setting of dual AV pacemaker. CXR: Mild heart failure pattern Head CT: Negative for acute changes/bleeding. A/P CT: noted for renal scar formation along with findings suspicious for enteritis versus small bowel ileus Medical history:Stated as above Surgical history: C-sectionsx2, hysterectomy, appendectomy, back surgery Allergy: iodine Social: Living with at home with her son. Smoking:Quit 15 years ago, smoked for 25 years (5-6cigs/day) Review of Systems Review of Systems Systems Reviewed: All systems reviewed, normal except as documented Past Medical History Past Medical History Comments PMH COMMENT: PMH: A-fib, sick sinus syndrome with pacemaker, HFpEF, COPD, diabetes, Parkinson's, hypertension PSH: Hysterectomy, appendectomy, 2 C-sections, back surgery Allergies:?Iodine Medications: Amlodipine, carbidopa levodopa, Eliquis, flecainide, fluconazole, Lasix, gabapentin, [place], Tresiba, levothyroxine, metoprolol. Meds Home Medications and Allergies Home Medications ?Medication ?Instructions ?Recorded ?Confirmed ?Type furosemide 40 mg tablet (Lasix) 40 mg PO QDAY #0 tabs 06/11/17 04/28/25 History apixaban 5 mg tablet (Eliquis) 5 mg PO BID 04/16/24 04/28/25 History carbidopa ER 50 mg-levodopa 200 mg 1 tab PO TID 08/21/24 04/28/25 History tablet,extended release metoprolol succinate 100 mg 100 mg PO DAILY 08/21/24 04/28/25 History tablet,extended release 24 hr hydrocodone 7.5 mg-acetaminophen 0.5 tab PO Q6H PRN severe back pain 08/23/24 04/28/25 History 325 mg tablet multivitamin-ferrous 1 tab PO QDAY 08/23/24 04/28/25 History fumarate-folic acid 18 mg-400 mcg tablet (Centrum) amiodarone 200 mg tablet 200 mg PO BID 03/05/25 04/28/25 History ferrous sulfate 325 mg (65 mg 325 mg PO DAILY 03/05/25 04/28/25 History iron) tablet (FeroSul) levothyroxine 50 mcg tablet 50 mcg PO DAILY 03/05/25 04/28/25 History pramipexole 0.25 mg tablet 0.25 mg PO TID 03/05/25 04/28/25 History gabapentin 300 mg capsule 300 mg PO TID 04/28/25 04/28/25 History insulin degludec 100 unit/mL (3 50 unit subcut QDAY 04/28/25 04/28/25 History mL) subcutaneous pen (Tresiba FlexTouch U-100 insulin) Allergies Allergy/AdvReac Type Severity Reaction Status Date / Time iodine Allergy Severe Swell up Verified 04/27/25 12:14 Exam Vital Signs Temp Pulse Resp BP Pulse Ox O2 Del Method O2 Flow Rate 97.0 F 60 15 126/67 96 Nasal Cannula 2 04/28/25 01:12 04/28/25 04:00 04/28/25 01:12 04/28/25 01:12 04/28/25 01:12 04/28/25 01:12 04/28/25 01:12 Narrative General: Obese, in no distress, normal mood and affect. HEENT: Normocephalic, atraumatic, anicteric, EOM intact, PERRLA, moist mucous membranes. Heart: RRR, no murmur or gallop. Lungs: Clear to auscultation with equal breath sounds bilaterally. Abdomen: Bowel sounds normal, soft, non distended, no tenderness or guarding, no CVA tenderness Extremities: Left arm sling noted, sensation, circulation &motor function intact and equal in all extremities Neurologic: Alert and oriented to name, place and date of , CN II-XII intact, able to move all extremities, DTRs normal Skin: Warm, dry, diffuse ecchymosis on upper extremities bilaterally with crusted/dried blood at some areas Results - Hospitalist Labs Diagrams: 04/27/25 12:59 04/27/25 12:59 Labs: Short CBC 04/27/25 Range/Units 12:59 WBC 18.5 H (3.6-11.0) Thou/mm3 Hgb 8.9 L (12.0-16.0) g/dL Hct 29.5 L (36.0-46.0) % Plt Count 275 (140-440) Thou/mm3 BMP 04/27/25 12:59 Sodium 140 Potassium 5.9 H Chloride 106 Carbon Dioxide 27.3 BUN 33 H Creatinine 2.1 H Glucose 148 H Calcium 8.9 Cardiac Enzymes 04/27/25 Range/Units 12:59 Troponin I < 0.020 (0.0-0.045) ng/mL Liver Function 04/27/25 Range/Units 12:59 Total Bilirubin 0.5 (0.3-1.2) mg/dL AST 41 H (0-34) U/L ALT < 7 L (10-49) U/L Alkaline Phosphatase 89 (46-116) U/L Albumin 3.2 L (3.4-4.8) gm/dL Urine 04/27/25 Range/Units 20:11 Urine Color Yellow (Lt Yel-Yel) Urine Clarity Clear (Clear/Hazy) Urine pH 5.5 (5.0-7.0) Ur Specific [place] 1.015 (1.001-1.035) Urine Protein Negative (Neg - Trace) Urine Glucose (UA) Negative (Negative) Assessment & Plan -Hospitalist Additional Plan Additional Plan: 75-year-old female with PMHx noted for A-fib on Eliquis, sick sinus syndrome post pacemaker in May 2024, HFpEF EF 55-60%, COPD on 4L of home oxygen as needed, IDDM II, Parkinson, HTN, and recent left upper extremity fracture s/p surgical repair at [facility] admitted for acute anemia in setting of GI bleed along with ALYLSON. #Acute anemia #GI Bleed #Diffuse ecchymosis Patient found to have hgb of 8.9, baseline Hgb around 11+FOBT. CT A/P negative for hemorrhage. -NPO now. -Protonix -Transfuse if hgb <7 -GI consulted, recs appreciated. #ALLYSON on CKD #Hyperkalemia CT noted for moderate renal scarring Likely prerenal On admission creatinine 2.1- Baseline around 1 Patient received 2L of IVF bolus. Patient started on 75 cc/HR of NS while NPO Avoid/renally dose nephrotoxic medications Follow-up repeat renal panel Replete electrolytes as warranted #Hypotension Multifactorial in setting of antihypertensive medication, recent opioid initiation and possible acute blood loss anemia. #Pyuria #Leukocytosis-possibly reactive in setting of acute illness UA noted for WBC, leukocyte esterase,and leukocytosis on CBC Patient denies any fever, abdominal pain, symptoms of UTI. #HFpEF, last ECHO 04/2024, EF 60% #A-fib Paced regular rhythm -Hold home Eliquis and BP meds -Telemetry -Strict I's and O's #COPD On 4L home oxygen as needed -O2, titrate to maintain saturation greater than 88% -DuoNebs as needed #IDDM II -Resume home degludec 50 units QPM -Insulin sliding scale # Hx of Parkinson's -Continue Carbidopa/Levadopa DVT prophylaxis: SCDs?no chemical prophylaxis in setting of acute blood loss anemia GI prophylaxis: Pantoprazole twice daily Diet: Car n.p.o. diac Lines: Peripheral IV Code status: Full code Quality Measures Quality Measures VTE prophylaxis and none Advance care planning discussed with:: patient
[2025-04-28 07:53] LABS: Basophils # (Auto) 0.1 Thou/mm3 (0.0-0.2); Basophils % (Auto) 0 % (0-2.5); Eosinophils # (Auto) 0.2 Thou/mm3 (0.0-0.5); Eosinophils % (Auto) 2 % (0-10); Hematocrit 26.2 % (36.0-46.0); Immature Granulocytes Auto 0.09 Thou/mm3 (0.00-0.00); Lymphocytes # (Auto) 1.2 Thou/mm3 (1.0-4.8); Lymphocytes % (Auto) 9 % (10-50); Mean Corpuscular HGB Conc 29.4 g/dl (31.0-37.0); Mean Corpuscular Hemoglobin 28.1 pg (25.0-35.0); Mean Corpuscular Volume 96 fL (80-100); Monocytes # (Auto) 0.7 Thou/mm3 (0.0-0.8); Monocytes % (Auto) 5 % (0-12); Neutrophils # (Auto) 11.3 Thou/mm3 (1.8-7.7); Neutrophils % (Auto) 83 % (37-80); Nucleated Red Blood Cell # 0.00 Thou/mm3 (0.00-0.00); Nucleated Red Blood Cell % 0 /100 WBC (0); Platelet Count 228 Thou/mm3 (140-440); RDW Standard Deviation 55.1 fL (36.4-46.3); Red Blood Count 2.74 Miln/mm3 (4.00-5.20); White Blood Count 13.6 Thou/mm3 (3.6-11.0)
[2025-04-28 07:57] LABS: Hemoglobin 7.7 g/dL (12.0-16.0)
[2025-04-28 08:20] LABS: Anion Gap 6 (7-16); BUN/Creatinine Ratio 25 Ratio (12-20); Blood Urea Nitrogen 37 mg/dL (9-23); Calcium 7.4 mg/dL (8.3-10.6); Carbon Dioxide 25.5 mMol/L (20.0-31.0); Chloride 110 mMol/L (98-107); Creatinine (Component) 1.5 mg/dL (0.6-1.3); Estimated Creatinine Clearance 37.5 mL/min (>60); Glucose 198 mg/dL (74-106); Magnesium 2.3 mg/dL (1.6-2.6); Osmolality,Calculated 295 (275-295); Potassium 5.3 mMol/L (3.4-5.1); Sodium 141 mMol/L (136-145); eGFR 36 See Note
--- NOTE | 2025-04-28 09:37 | ESPR_ITS ---
Documentation for date of: 04/28/25 Subjective Subjective Interval history: Overnight events: No acute events overnight. Patient was seen and examined at bedside. AM vitals and labs reviewed. Patient appears to be doing much better today. Patient is fully aware of self, time, place, and situation. Patient explained that she had a recent replacement of her shoulder. She has been on Eliquis since earlier this year, stopped briefly for her surgery, and just started using it again on Wednesday 04/25. WBC 13.6, hemoglobin 7.7, potassium 5.3, creatinine at 1.5. Pending recommendations from GI. Given patient's bilateral lower extremity edema, initially thought of giving one-time dose of Lasix, however held off due to low systolic blood pressure. Review of systems otherwise negative except for what is mentioned above. Exam Vital Signs Temp Pulse Resp BP Pulse Ox O2 Del Method O2 Flow Rate 97.3 F 60 18 102/67 91 L Nasal Cannula 1 04/28/25 08:00 04/28/25 08:00 04/28/25 08:00 04/28/25 08:00 04/28/25 08:00 04/28/25 08:00 04/28/25 08:00 Narrative Exam Physical Exam: General: Alert, no acute distress. Dressing on top of Skin: Warm, dry, intact. Head: Normocephalic, atraumatic. Eye: Normal conjunctiva, PERRL. Cardiovascular: Regular rate and rhythm, loud systolic murmur over aortic/pulmonic regions, +S1/S2. Respiratory: Lungs are clear to auscultation, respirations unlabored, no crackles, no wheezing. Gastrointestinal: Soft, nontender, non-distended. No guarding or rebound tenderness. Extremities: 1+ pitting BLE edema, no cyanosis, no clubbing. Neuro: No focal deficits observed. Conversant, moving all extremities. No overt cerebellar signs/incoordination. Psychiatric: Cooperative, appropriate affect. Objective Labs 04/28/25 07:00 04/28/25 07:00 Labs: Laboratory Results - last 24 hr 04/27/25 04/27/25 04/27/25 12:59 20:03 20:11 WBC 18.5 H RBC 3.08 L Hgb 8.9 L Hct 29.5 L MCV 96 MCH 28.9 MCHC 30.2 L RDW Std Deviation 56.1 H Plt Count 275 Neut % (Auto) 84 H Lymph % (Auto) 7 L [place] % (Auto) 5 Eos % (Auto) 2 Baso % (Auto) 0 Neut # (Auto) 15.6 H Lymph # (Auto) 1.3 [place] # (Auto) 1.0 H Eos # (Auto) 0.4 Baso # (Auto) 0.1 Immature Gran # (Auto) 0.20 H Absolute Nucleated RBC 0.00 Immature Gran % 1 H Nucleated RBC % 0 PT 11.6 INR 1.1 APTT 29.1 Sodium 140 Potassium 5.9 H Chloride 106 Carbon Dioxide 27.3 Anion Gap 7 BUN 33 H Creatinine 2.1 H Estim Creat Clear Calc 26.1 L eGFR 24 L BUN/Creatinine Ratio 16 Glucose 148 H Calculated Osmolality 289 Calcium 8.9 Corrected Calcium 9.5 Magnesium Total Bilirubin 0.5 AST 41 H ALT < 7 L Alkaline Phosphatase 89 Troponin I < 0.020 B-Natriuretic Peptide 567 H* Total Protein 5.9 Albumin 3.2 L Globulin 2.7 Albumin/Globulin Ratio 1.2 Ur Collection Type Clean Catch Urine Color Yellow Urine Clarity Clear Urine pH 5.5 Ur Specific [place] 1.015 Urine Protein Negative Urine Glucose (UA) Negative Urine Ketones Negative Urine Blood Negative Urine Nitrite Negative Urine Bilirubin Negative Urine Urobilinogen (Auto) Negative Ur Leukocyte Esterase Positive Urine RBC 2 Urine WBC 22 H Ur Squamous Epith Cells 2 Urine Bacteria None Hyaline Casts 1 Ur Culture Indicated? Yes Stool Occult Blood Positive A Blood Type Antibody Screen Blood Bank Wristband ID 04/28/25 07:00 WBC 13.6 H RBC 2.74 L Hgb 7.7 L Hct 26.2 L MCV 96 MCH 28.1 MCHC 29.4 L RDW Std Deviation 55.1 H Plt Count 228 D Neut % (Auto) 83 H Lymph % (Auto) 9 L [place] % (Auto) 5 Eos % (Auto) 2 Baso % (Auto) 0 Neut # (Auto) 11.3 H Lymph # (Auto) 1.2 [place] # (Auto) 0.7 Eos # (Auto) 0.2 Baso # (Auto) 0.1 Immature Gran # (Auto) 0.09 H Absolute Nucleated RBC 0.00 Immature Gran % 1 H Nucleated RBC % 0 PT INR APTT Sodium 141 Potassium 5.3 H D Chloride 110 H Carbon Dioxide 25.5 Anion Gap 6 L BUN 37 H Creatinine 1.5 H D Estim Creat Clear Calc 37.5 L eGFR 36 L BUN/Creatinine Ratio 25 H Glucose 198 H D Calculated Osmolality 295 Calcium 7.4 L D Corrected Calcium Magnesium 2.3 Total Bilirubin AST ALT Alkaline Phosphatase Troponin I B-Natriuretic Peptide Total Protein Albumin Globulin Albumin/Globulin Ratio Ur Collection Type Urine Color Urine Clarity Urine pH Ur Specific [place] Urine Protein Urine Glucose (UA) Urine Ketones Urine Blood Urine Nitrite Urine Bilirubin Urine Urobilinogen (Auto) Ur Leukocyte Esterase Urine RBC Urine WBC Ur Squamous Epith Cells Urine Bacteria Hyaline Casts Ur Culture Indicated? Stool Occult Blood Blood Type A Positive Antibody Screen NEGATIVE Blood Bank Wristband ID Yes Quality Measures Quality Measures VTE prophylaxis Advance care planning discussed with:: patient Assessment & Plan Assessment Current Active Medications: Generic Name Dose Route Start Last Admin Trade Name Freq PRN Reason Stop Dose Admin Acetaminophen 650 mg 04/28/25 07:48 Acetaminophen 325 Mg Tablet PO 05/27/25 23:48 Q6H PRN Pain 1-3 and/or Fever >100.1 Hydrocodone Bitart/Acetaminophen 1 tab 04/28/25 07:47 Hydrocodone/Apap 5/325 Tablet PO 05/03/25 07:46 Q6HR PRN Pain 4-6 Hydrocodone Bitart/Acetaminophen 1 tab 04/28/25 07:47 04/28/25 08:01 Hydrocodone/Apap 10/325 Tab PO 05/03/25 07:46 1 tab Q4HR PRN Administration Pain 7-10 Dextrose 25 ml 04/28/25 02:02 Dextrose 50%-Water Inj 50 Ml Syringe IV 05/28/25 02:01 Q15MIN PRN BG 50-70 responsive npo pt Dextrose 50 ml 04/28/25 02:02 Dextrose 50%-Water Inj 50 Ml Syringe IV 05/28/25 02:01 Q15MIN PRN BG <50 OR BG <70 & pt unresponsive Glucagon 1 mg 04/28/25 02:02 Glucagon Inj 1 Mg Vial IM Q15MIN PRN BG <70, and no IV access Sodium Chloride 1,000 mls @ 75 mls/hr 04/27/25 23:45 04/28/25 01:36 Ns IV 04/28/25 13:04 75 mls/hr .[id number] SHANE Administration Insulin Degludec 25 unit 04/28/25 21:00 Insulin Degludec 5 Unit/0.05 Ml (Per 5 Units) SC 05/28/25 20:59 QPM SHANE Insulin Human Lispro 0 unit 04/28/25 07:30 04/28/25 07:19 Insulin Lispro (Admelog) 1 Unit/0.01 Ml Unit SC 05/28/25 07:29 Not Given AC [facility] Protocol Ondansetron HCl 4 mg 04/27/25 23:49 Ondansetron Inj 2 Mg/Ml Inj 2 Ml IVP 05/27/25 23:48 Q6H PRN NAUSEA OR VOMITING Protocol Pantoprazole Sodium 40 mg 04/28/25 09:00 04/28/25 08:02 Pantoprazole Inj 40 Mg Vial IVP 05/28/25 08:59 40 mg Q12HR SHANE Administration Plan 75-year-old female with PMHx noted for A-fib on Eliquis, sick sinus syndrome post pacemaker in May 2024, HFpEF EF 60-65% 2023, COPD on 4L of home oxygen as needed, IDDM II, Parkinson, HTN, and recent left upper extremity fracture s/p surgical repair at [facility] who presented with altered mentation. Patient was admitted for acute anemia in setting of GI bleed along with ALLYSON. #GI bleed, upper versus lower #Acute anemia #Diffuse ecchymoses Patient was noted to have a hemoglobin of 8.9 in ED, with a baseline of 11. Patient does have a history of using Eliquis, which puts her at increased risk of bleeding. FOBT was positive in ED. Given her overall presentation and hypotension, there is concern for a possible GI bleed. Plan: GI consulted, appreciate recommendations Patient made n.p.o. for GI procedures Continue to monitor, transfuse if hemoglobin less than 7 per protocol Protonix 40 mg twice daily #ALLYSON on CKD, resolving #Hyperkalemia Patient noted to have a creatinine of 2.1 in ED. Baseline creatinine is about 1.0. CT abdomen/pelvis does note moderate scarring of the kidneys. ALLYSON is likely prerenal in the setting of her suspected GI bleed. Patient received 2 L of IV fluid in the ED. Patient received additional 1 L NS on admission. Plan: Continue to monitor Renally dose medications, avoid nephrotoxic drugs #Hypotension On presentation, the patient had a blood pressure of 105/55. Patient was noted to have a history of hypertension. The hypotension is likely secondary to use of her antihypertensive medications in addition to recent opioid usage and possible GI bleed. Plan: Will continue to monitor Hold home antihypertensives Hold home diuresis #Leukocytosis #UTI? Patient noted to present with leukocytosis of 18.5. Possible source is a urinary tract infection given UA was positive for leukocyte esterase and 22 WBC. Patient denies any symptoms at this time. Plan: Urine culture collected 04/27, pending #HFpEF, EF 60 to 65% 04/2024 #Atrial fibrillation, on Eliquis Patient has a history of HFpEF as well as atrial fibrillation. Patient's last echocardiogram was on April 2024, which showed ejection fraction 60 to 65%. Patient is not on any GDMT other than metoprolol succinate and Lasix at home. Additionally, patient does have a history of atrial fibrillation and takes Eliquis for that. Patient started taking Eliquis since the start of this year, and only briefly held it shoulder surgery, but has since resumed it on 04/25. Plan: Repeat echocardiogram given 1 year since last echocardiogram on file Hold Eliquis given concern for GI bleed #COPD Patient does have a history of COPD. Patient is on 4 L home oxygen as needed. Plan: As needed O2 via nasal cannula, titrate to maintain saturation greater than 88% DuoNebs as needed for exacerbation #Insulin-dependent type 2 diabetes mellitus Patient has a history of T2DM, requiring insulin at home. Patient usually takes degludec 50 units at home. Plan: Insulin degludec 25 units nightly given patient's n.p.o. status Sliding scale insulin Bedside glucose checks every 6 hours #History of Parkinson's disease Patient does have a history of Parkinson's disease and takes carbidopa levodopa at home. Plan: Resume home dose of carbidopa levodopa DVT prophylaxis: SCDs?no chemical prophylaxis in setting of acute blood loss anemia GI prophylaxis: Pantoprazole twice daily Diet: Cardiac, but currently n.p.o. Lines: Peripheral IV Code status: Full code Patient plan of care was discussed with attending physician Dr. Yuliya Ramirez, PGY1 Attending Provider Attestation/Addendum I have discussed and was present for the essential components of the history, physical examination, diagnosis, and treatment plan with the resident. I agree with the patient's care as documented by the resident and amended herein by me. Cyrus Dwyer DO. Although this document has been carefully reviewed, there may still be some phonetic and other typographical errors. These errors are purely grammatical due to imperfections in the software program and should not be construed in any way to compromise the substance of the patient's medical care during this visit.
--- NOTE | 2025-04-28 13:10 | PC.SS ---
75YO White female, reason for visit: ACUTE ENCEPHALOPATHY/ ACUTE ANEMIA ? SS met with patient at bedside to complete initial assessment. Role and purpose of today?s contact was explained to patient. Patient confirmed her demographic information. Patient stated her spouse Elvis Ryan [phone] is her surrogate medical decision maker. Patient stated she requires some assistance with ADL completion and utilizes a cane for ambulation. Patient utilizes 5L oxygen as needed, DME provider is [facility]. PHARMACY: [facility]. PCP: Dr. Ha. Discharge plan discussed with patient; patient is requesting to discharge home when medically clear. Next of Kin: Spouse Elvis Ryan [phone] ?Discharge plan: Home, son Elvis to provide transportation. ???
[2025-04-28] MEDS: NA SU/NAHCO3/KC/PEG (Golytely) 4,000 ML BTL 4000 ML PO (18:33)
[2025-04-28] MEDS: CARBIDOPA/LEVODOPA CR 50/200 TABCR 1 TAB PO (21:23)
[2025-04-28] MEDS: INSULIN DEGLUDEC 5 UNIT/0.05 ML (PER 5 UNITS) 25 UNIT SC (21:23)
[2025-04-29] VITALS (22 sets, daily range): BP systolic 108–150; BP diastolic 55–74; PULSE 59–64; RESP 12–22; TEMP 35.6–36.4; O2SAT 93–100
[2025-04-29] MEDS: HYDROcodone/APAP 5/325 TABLET 1 TAB PO (03:14)
[2025-04-29] MEDS: CARBIDOPA/LEVODOPA CR 50/200 TABCR 1 TAB PO ×3 (05:14→21:03)
[2025-04-29] MEDS: LEVOTHYROXINE SODIUM 25 MCG TABLET 50 MCG PO (05:14)
[2025-04-29 06:17] LABS: Basophils # (Auto) 0.1 Thou/mm3 (0.0-0.2); Basophils % (Auto) 1 % (0-2.5); Eosinophils # (Auto) 0.3 Thou/mm3 (0.0-0.5); Eosinophils % (Auto) 2 % (0-10); Hematocrit 29.3 % (36.0-46.0); Hemoglobin 8.9 g/dL (12.0-16.0); Immature Granulocytes Auto 0.08 Thou/mm3 (0.00-0.00); Lymphocytes # (Auto) 1.7 Thou/mm3 (1.0-4.8); Lymphocytes % (Auto) 12 % (10-50); Mean Corpuscular HGB Conc 30.4 g/dl (31.0-37.0); Mean Corpuscular Hemoglobin 28.6 pg (25.0-35.0); Mean Corpuscular Volume 94 fL (80-100); Monocytes # (Auto) 1.2 Thou/mm3 (0.0-0.8); Monocytes % (Auto) 9 % (0-12); Neutrophils # (Auto) 10.7 Thou/mm3 (1.8-7.7); Neutrophils % (Auto) 76 % (37-80); Nucleated Red Blood Cell # 0.00 Thou/mm3 (0.00-0.00); Nucleated Red Blood Cell % 0 /100 WBC (0); Platelet Count 246 Thou/mm3 (140-440); RDW Standard Deviation 53.7 fL (36.4-46.3); Red Blood Count 3.11 Miln/mm3 (4.00-5.20); White Blood Count 14.0 Thou/mm3 (3.6-11.0)
[2025-04-29 06:44] LABS: Anion Gap 9 (7-16); BUN/Creatinine Ratio 16 Ratio (12-20); Blood Urea Nitrogen 19 mg/dL (9-23); Calcium 8.5 mg/dL (8.3-10.6); Carbon Dioxide 24.5 mMol/L (20.0-31.0); Chloride 107 mMol/L (98-107); Creatinine (Component) 1.2 mg/dL (0.6-1.3); Estimated Creatinine Clearance 46.8 mL/min (>60); Glucose 139 mg/dL (74-106); Osmolality,Calculated 283 (275-295); Potassium 5.1 mMol/L (3.4-5.1); Sodium 140 mMol/L (136-145); eGFR 47 See Note
[2025-04-29] MEDS: APIXABAN 2.5 MG TABLET 5 MG PO ×2 (09:01→21:02)
--- NOTE | 2025-04-29 11:59 | ESPR_ITS ---
Documentation for date of: 04/29/25 Subjective Subjective Interval history: Overnight events: No acute events overnight. Patient was seen and examined at bedside. AM vitals and labs reviewed. Patient continues to be doing well. Continues to interact well without any signs of acute encephalopathy. Patient does complain of chronic back pain though as well as asking for changing of her shoulder surgery wound dressing. EGD performed yesterday showed gastritis. WBC 14.0, hemoglobin 8.9, potassium 5.1, creatinine 1.2 GI plans for colonoscopy today. Patient is on GoLytely. Protonix stopped given lack of bleeding on endoscopy and advancement of diet. Eliquis resumed per recommendations from GI. Wound care referral ordered. Review of systems otherwise negative except for what is mentioned above. Exam Vital Signs Temp Pulse Resp BP Pulse Ox O2 Del Method O2 Flow Rate 96.9 F 64 18 115/59 L 96 Nasal Cannula 3 04/29/25 07:50 04/29/25 10:01 04/29/25 10:01 04/29/25 07:50 04/29/25 10:01 04/29/25 07:50 04/29/25 10:01 Narrative Exam Physical Exam: General: Alert, no acute distress. Dressing on top of Skin: Warm, dry, intact. Head: Normocephalic, atraumatic. Eye: Normal conjunctiva, PERRL. Cardiovascular: Regular rate and rhythm, systolic murmur over aortic/pulmonic regions, +S1/S2. Respiratory: Lungs are clear to auscultation, respirations unlabored, no crackles, no wheezing. Gastrointestinal: Soft, nontender, non-distended. No guarding or rebound tenderness. Extremities: 1+ pitting BLE edema, no cyanosis, no clubbing. Neuro: No focal deficits observed. Conversant, moving all extremities. No overt cerebellar signs/incoordination. Psychiatric: Cooperative, appropriate affect. Objective Labs 04/29/25 05:18 04/29/25 05:18 Labs: Laboratory Results - last 24 hr 04/29/25 05:18 WBC 14.0 H RBC 3.11 L Hgb 8.9 L Hct 29.3 L MCV 94 MCH 28.6 MCHC 30.4 L RDW Std Deviation 53.7 H Plt Count 246 Neut % (Auto) 76 Lymph % (Auto) 12 [place] % (Auto) 9 Eos % (Auto) 2 Baso % (Auto) 1 Neut # (Auto) 10.7 H Lymph # (Auto) 1.7 [place] # (Auto) 1.2 H Eos # (Auto) 0.3 Baso # (Auto) 0.1 Immature Gran # (Auto) 0.08 H Absolute Nucleated RBC 0.00 Immature Gran % 1 H Nucleated RBC % 0 Sodium 140 Potassium 5.1 Chloride 107 Carbon Dioxide 24.5 Anion Gap 9 BUN 19 Creatinine 1.2 Estim Creat Clear Calc 46.8 L eGFR 47 L BUN/Creatinine Ratio 16 Glucose 139 H D Calculated Osmolality 283 Calcium 8.5 Quality Measures Quality Measures VTE prophylaxis Advance care planning discussed with:: patient Assessment & Plan Assessment Current Active Medications: Generic Name Dose Route Start Last Admin Trade Name Freq PRN Reason Stop Dose Admin Acetaminophen 650 mg 04/28/25 07:48 Acetaminophen 325 Mg Tablet PO 05/27/25 23:48 Q6H PRN Pain 1-3 and/or Fever >100.1 Hydrocodone Bitart/Acetaminophen 1 tab 04/28/25 07:47 04/29/25 03:14 Hydrocodone/Apap 5/325 Tablet PO 05/03/25 07:46 1 tab Q6HR PRN Administration Pain 4-6 Hydrocodone Bitart/Acetaminophen 1 tab 04/28/25 07:47 04/29/25 09:02 Hydrocodone/Apap 10/325 Tab PO 05/03/25 07:46 1 tab Q4HR PRN Administration Pain 7-10 Apixaban 5 mg 04/29/25 09:00 04/29/25 09:01 Apixaban 2.5 Mg Tablet PO 05/29/25 08:59 5 mg BID SHANE Administration Carbidopa/Levodopa 1 tab 04/28/25 22:00 04/29/25 05:14 Carbidopa/Levodopa Cr 50/200 Tabcr PO 05/28/25 21:59 1 tab TID SHANE Administration Dextrose 25 ml 04/28/25 02:02 Dextrose 50%-Water Inj 50 Ml Syringe IV 05/28/25 02:01 Q15MIN PRN BG 50-70 responsive npo pt Dextrose 50 ml 04/28/25 02:02 Dextrose 50%-Water Inj 50 Ml Syringe IV 05/28/25 02:01 Q15MIN PRN BG <50 OR BG <70 & pt unresponsive Glucagon 1 mg 04/28/25 02:02 Glucagon Inj 1 Mg Vial IM Q15MIN PRN BG <70, and no IV access Insulin Degludec 25 unit 04/28/25 21:00 04/28/25 21:23 Insulin Degludec 5 Unit/0.05 Ml (Per 5 Units) SC 05/28/25 20:59 25 unit QPM SHANE Administration Insulin Human Lispro 0 unit 04/28/25 07:30 04/29/25 11:38 Insulin Lispro (Admelog) 1 Unit/0.01 Ml Unit SC 05/28/25 07:29 Not Given AC SHANE Protocol Levothyroxine Sodium 50 mcg 04/29/25 06:00 04/29/25 05:14 Levothyroxine Sodium 25 Mcg Tablet PO 05/29/25 05:59 50 mcg ACBR SHANE Administration Ondansetron HCl 4 mg 04/27/25 23:49 Ondansetron Inj 2 Mg/Ml Inj 2 Ml IVP 05/27/25 23:48 Q6H PRN NAUSEA OR VOMITING Protocol Plan 75-year-old female with PMHx noted for A-fib on Eliquis, sick sinus syndrome post pacemaker in May 2024, HFpEF EF 60-65% 2023, COPD on 4L of home oxygen as needed, IDDM II, Parkinson, HTN, and recent left upper extremity fracture s/p surgical repair at [facility] who presented with altered mentation. Patient was admitted for acute anemia in setting of GI bleed along with ALLYSON. #GI bleed, possibly lower #Acute anemia #Diffuse ecchymoses Patient was noted to have a hemoglobin of 8.9 in ED, with a baseline of 11. Patient does have a history of using Eliquis, which puts her at increased risk of bleeding. FOBT was positive in ED. Given her overall presentation and hypotension, there is concern for a possible GI bleed. Diagnostics: EGD performed 04/28, positive for gastritis, no active bleeding identified. Plan: GI consulted, appreciate recommendations Patient is on clear liquids and GoLytely for colonoscopy planned on 04/29 Continue to monitor, transfuse if hemoglobin less than 7 per protocol #ALLYSON on CKD, resolving #Hyperkalemia Patient noted to have a creatinine of 2.1 in ED. Baseline creatinine is about 1.0. CT abdomen/pelvis does note moderate scarring of the kidneys. ALLYSON is likely prerenal in the setting of her suspected GI bleed. Patient received 2 L of IV fluid in the ED. Patient received additional 1 L NS on admission. Plan: Continue to monitor Renally dose medications, avoid nephrotoxic drugs #Hypotension On presentation, the patient had a blood pressure of 105/55. Patient was noted to have a history of hypertension. The hypotension is likely secondary to use of her antihypertensive medications in addition to recent opioid usage and possible GI bleed. Plan: Will continue to monitor Hold home antihypertensives Hold home diuresis #Leukocytosis #UTI? Patient noted to present with leukocytosis of 18.5. Possible source is a urinary tract infection given UA was positive for leukocyte esterase and 22 WBC. Patient denies any symptoms at this time. Plan: Urine culture collected 04/27, pending #HFpEF, EF 60 to 65% 04/2024 #Atrial fibrillation, on Eliquis Patient has a history of HFpEF as well as atrial fibrillation. Patient's last echocardiogram was on April 2024, which showed ejection fraction 60 to 65%. Patient is not on any GDMT other than metoprolol succinate and Lasix at home. Additionally, patient does have a history of atrial fibrillation and takes Eliquis for that. Patient started taking Eliquis since the start of this year, and only briefly held it shoulder surgery, but has since resumed it on 04/25. Plan: Repeat echocardiogram given 1 year since last echocardiogram on file Resumed Eliquis 5 mg twice daily as cleared by GI #COPD Patient does have a history of COPD. Patient is on 4 L home oxygen as needed. Plan: As needed O2 via nasal cannula, titrate to maintain saturation greater than 88% DuoNebs as needed for exacerbation #Insulin-dependent type 2 diabetes mellitus Patient has a history of T2DM, requiring insulin at home. Patient usually takes degludec 50 units at home. Plan: Insulin degludec 25 units nightly Sliding scale insulin Bedside glucose checks every 6 hours #History of Parkinson's disease Patient does have a history of Parkinson's disease and takes carbidopa levodopa at home. Plan: Resume home dose of carbidopa levodopa DVT prophylaxis: Eliquis GI prophylaxis: Pantoprazole twice daily Diet: Cardiac, but currently clear liquids Lines: Peripheral IV Code status: Full code Patient plan of care was discussed with attending physician Dr. Yuliya Ramirez, PGY1 Attending Provider Attestation/Addendum I have discussed and was present for the essential components of the history, physical examination, diagnosis, and treatment plan with the resident. I agree with the patient's care as documented by the resident and amended herein by me. Cyrus Dwyer DO. Although this document has been carefully reviewed, there may still be some phonetic and other typographical errors. These errors are purely grammatical due to imperfections in the software program and should not be construed in any way to compromise the substance of the patient's medical care during this visit.
--- NOTE | 2025-04-29 14:30 | PC.NURSE ---
WOUND CARE DONE FOLLOWS: OLD DRESSING REMOVED, SURGICAL SITE WOUND HAS SURGICAL TAPE IN PLACE WAS NOT REMOVED, SCANT DRY BLOOD, NO DRAINAGE, CLEANSED WITH WOUND CLEANSER, PAT DRY, COVER WITH ABD PAD, SECURE WITH MEDI TAPE, PT TOLERATED WELL.
--- NOTE | 2025-04-29 14:46 | PC.PT ---
Pt approached for PT evaluation but requested to hold until tomorrow as she feels very tired at the moment.
--- NOTE | 2025-04-29 16:26 | PC.SS ---
Rounding note: Colonscopy to be completed today. Discharge plan: Home.
--- NOTE | 2025-04-29 16:29 | PC.SS ---
Rounding Note: EEG and Imaging pending for 04/30/25. Discharging home when medically clear.
--- NOTE | 2025-04-29 16:59 | PC.NURSE ---
PATIENT ALERT AND ORIENTED X3, TRANSFER TO OR FOR COLONOSCOPY.
--- NOTE | 2025-04-29 17:35 | SUR.PHASEI ---
PT RECEIVED TO PACU BAY 2. VSS. BREATHING EVEN AND UNLABORED. MARY JANE GARCES.
--- NOTE | 2025-04-29 17:55 | SUR.PHASEI ---
REPORT CALLED TO NURSE CRUZ. JAMARCUS. BREATHING EVEN AND UNLABORED. DENIES PAIN AND NAUSEA. TRANSPORTED TO ROOM VIA GURNEY.
[2025-04-30] VITALS (8 sets, daily range): BP systolic 102–132; BP diastolic 52–58; PULSE 60–70; RESP 15–22; TEMP 36.2–37.1; O2SAT 92–100; BMI 13.0
[2025-04-30] MEDS: CARBIDOPA/LEVODOPA CR 50/200 TABCR 1 TAB PO ×2 (05:38→14:05)
[2025-04-30] MEDS: LEVOTHYROXINE SODIUM 25 MCG TABLET 50 MCG PO (05:38)
[2025-04-30 05:46] LABS: Basophils # (Auto) 0.1 Thou/mm3 (0.0-0.2); Basophils % (Auto) 1 % (0-2.5); Eosinophils # (Auto) 0.2 Thou/mm3 (0.0-0.5); Eosinophils % (Auto) 2 % (0-10); Hematocrit 27.1 % (36.0-46.0); Immature Granulocytes Auto 0.05 Thou/mm3 (0.00-0.00); Lymphocytes # (Auto) 1.4 Thou/mm3 (1.0-4.8); Lymphocytes % (Auto) 12 % (10-50); Mean Corpuscular HGB Conc 30.3 g/dl (31.0-37.0); Mean Corpuscular Hemoglobin 28.1 pg (25.0-35.0); Mean Corpuscular Volume 93 fL (80-100); Monocytes # (Auto) 0.8 Thou/mm3 (0.0-0.8); Monocytes % (Auto) 7 % (0-12); Neutrophils # (Auto) 9.2 Thou/mm3 (1.8-7.7); Neutrophils % (Auto) 78 % (37-80); Nucleated Red Blood Cell # 0.00 Thou/mm3 (0.00-0.00); Nucleated Red Blood Cell % 0 /100 WBC (0); Platelet Count 250 Thou/mm3 (140-440); RDW Standard Deviation 53.9 fL (36.4-46.3); Red Blood Count 2.92 Miln/mm3 (4.00-5.20); White Blood Count 11.8 Thou/mm3 (3.6-11.0)
[2025-04-30 05:58] LABS: Hemoglobin 8.2 g/dL (12.0-16.0)
[2025-04-30 06:23] LABS: Anion Gap 7 (7-16); BUN/Creatinine Ratio 15 Ratio (12-20); Blood Urea Nitrogen 15 mg/dL (9-23); Calcium 8.9 mg/dL (8.3-10.6); Carbon Dioxide 27.3 mMol/L (20.0-31.0); Chloride 108 mMol/L (98-107); Creatinine (Component) 1.0 mg/dL (0.6-1.3); Estimated Creatinine Clearance 56.2 mL/min (>60); Glucose 172 mg/dL (74-106); Osmolality,Calculated 287 (275-295); Potassium 5.1 mMol/L (3.4-5.1); Sodium 142 mMol/L (136-145); eGFR 59 See Note
[2025-04-30] MEDS: INSULIN LISPRO (AdmeLOG) 1 UNIT/0.01 ML UNIT SC ×2 (07:43→12:01)
--- NOTE | 2025-04-30 08:55 | ESPR_ITS ---
Documentation for date of: 04/30/25 Subjective Subjective Interval history: Hemoglobin hematocrit 8.2 and 27.1 Colonoscopy showed sigmoid colon polyp endoscopic resected pretty decent large size polyp histopathology pending Moderate diverticulosis sigmoid and descending colon Moderate gastritis on upper endoscopy Exam Vital Signs Temp Pulse Resp BP Pulse Ox O2 Del Method O2 Flow Rate 97.1 F 62 20 116/56 L 98 Nasal Cannula 3 04/30/25 07:48 04/30/25 07:48 04/30/25 07:48 04/30/25 07:48 04/30/25 07:48 04/30/25 07:48 04/30/25 07:48 Objective Labs 04/30/25 04:40 04/30/25 04:40 Labs: Laboratory Results - last 24 hr 04/30/25 04:40 WBC 11.8 H RBC 2.92 L Hgb 8.2 L Hct 27.1 L MCV 93 MCH 28.1 MCHC 30.3 L RDW Std Deviation 53.9 H Plt Count 250 Neut % (Auto) 78 Lymph % (Auto) 12 [place] % (Auto) 7 Eos % (Auto) 2 Baso % (Auto) 1 Neut # (Auto) 9.2 H Lymph # (Auto) 1.4 [place] # (Auto) 0.8 Eos # (Auto) 0.2 Baso # (Auto) 0.1 Immature Gran # (Auto) 0.05 H Absolute Nucleated RBC 0.00 Immature Gran % 0 Nucleated RBC % 0 Sodium 142 Potassium 5.1 Chloride 108 H Carbon Dioxide 27.3 Anion Gap 7 BUN 15 Creatinine 1.0 Estim Creat Clear Calc 56.2 L eGFR 59 L BUN/Creatinine Ratio 15 Glucose 172 H Calculated Osmolality 287 Calcium 8.9 Impressions Impression: Occult GI bleeding Large sigmoid colon polyp status post endoscopic resection pathology pending Gastritis Plan Outpatient capsule endoscopy Patient can be anticoagulated fully Assessment & Plan A&P Narrative # Acute posthemorrhagic anemia # Hemoccult positive stool Plan Transfuse the patient of the hemoglobin drops below 7 g consent obtained for fiberoptic esophagogastroduodenoscopy with possible biopsy possible therapeutic intervention under intravenous moderate sedation If no lesion found on the upper endoscopy will consider fiberoptic colonoscopy prior to discharge Continue Eliquis and do not hold it Will follow the patient Other medical problems include Sick sinus syndrome requiring pacemaker Chronic atrial fibrillation on Eliquis metoprolol and amiodarone COPD Essential hypertension Parkinson disease Thank you very much for the opportunity to participate in the care of this patient Time Spent With Patient Time: Total time spent is greater than 50% in coordination of care (as documented) at patient's floor/unit and/or counseling patient:
[2025-04-30] MEDS: APIXABAN 2.5 MG TABLET 5 MG PO (09:04)
--- NOTE | 2025-04-30 11:14 | PC.SS ---
SS met pt who states she only has O2 concentrator not the small O2 tanks at home. Pt states she utilizes [facility]. Pt is currently 2 liters of O2. SS has confirmed with Bebe from [facility] pt is only using nocturnal home O2 not continuous home O2. SS has met with bedside nurse who is aware pt requires O2 testing for continuos home O2. Pt will return home with [facility] for wound care. Pt states she followed up with PCP, Dr. Makeda Snow- Kwaku 1 week ago.
--- NOTE | 2025-04-30 11:33 | ESDS_ITS ---
Planned Discharge Date 04/30/25 DS: Providers Provider Date of admission: 04/27/25 23:49 Primary care physician: Tequila Ha MD Admitting Provider: Rod Rodrigues MD Attending Provider on Admission: Jam Dwyer DO Consults: 04/27/25 20:14 Consult to Gastroenterology Stat Comment: Positive occult blood, anemia Consulting Provider: Jackeline Garcia 04/28/25 01:48 [facility] Referral - Knowledge Deficit Routine Comment: Positive screening for knowledge deficit needs. 04/28/25 07:39 Referral Physical Therapy Routine Comment: Physician Instructions: 04/29/25 11:54 Referral Wound Care Routine Comment: Attending Provider on DC: Jam Dwyer DO Discharging Provider: Red Ramirez DO Anticipated date of discharge: 04/30/25 DS: Diagnosis Problem List Completed Was Problem List Reviewed/Reconciled?: Yes Hospital Course Hospital Course Hospital course: Reason for hospitalization: GI bleed Summary: This patient is a 75-year-old female with a past medical history of atrial fibrillation on Eliquis, sick sinus syndrome status post pacemaker May 2024, HFpEF EF 60 to 65% 2023, COPD on 4 L home oxygen as needed, insulin-dependent type 2 diabetes mellitus, Parkinson's disease, hypertension, and recent left upper extremity fracture status post surgical repair at [facility] who presented to [facility] ED on 04/27 with concerns of altered mental status. The patient was admitted on 04/28 for management of GI bleed. Earlier prior to seeking care at the ED, the patient's family noted that the patient seemed more somnolent and had hypotension. It was noted that the patient was recently discharged with Percocet along with resumption of her home blood pressure medications and Eliquis about 2 days before admission. In the ED, the patient was noted to have a blood pressure of 95/60 and labs were significant for WBC of 18.5 and hemoglobin of 8.9. Due to concerns for GI bleed given the patient's Eliquis use, FOBT was performed, which was found to be positive. Physicians in ED contacted GI, who recommended admitting the patient for further GI workup. After receiving some fluids and given some time to recuperate, the patient quickly had resolution of her altered mental status. On 04/28, the patient was able to answer her name, her birthday, her location, the date, and why she was admitted. Later that day on 04/28, the patient had her endoscopy performed, which only showed some gastritis. Colonoscopy was performed formed on 04/29, which showed perianal hemorrhoids, moderate diverticulosis without diverticular bleeding, and 1 large polyp in the sigmoid colon that was removed and retrieved for biopsy. The patient was advised to repeat a colonoscopy in 5 years for josefina veillance and to follow-up with GI outpatient. The patient was also recommended to start on a high-fiber diet definitely. On 04/30, the patient had no additional signs of possible GI bleed, and hemoglobin remained stable. Eliquis was resumed and the patient was medically cleared to be discharged with plans to follow-up outpatient. Discharge Recommendations: - Take insulin degludec 30 units instead of 50 and adjust the dose based on morning sugars and after meeting the PCP - Follow-up with within 2 weeks of discharge - Recommended high fiber intake - Follow up with PCP within 1 week of discharge - Continue rest of medications as previously prescribed - Return to the ED or call EMS if symptoms return and/or worsen If you don't have a PCP, you can make an appointment at the [facility]: [address] [place] [address] Hospital Diagnoses: #GI bleed, ruled out #Acute anemia #Diffuse ecchymoses #ALLYSON on CKD, resolved #Hyperkalemia #Hypotension #Leukocytosis #HFpEF, EF 60 to 65% 04/2024 #Atrial fibrillation, on Eliquis #COPD, on 4 L O2 as needed #Insulin-dependent type 2 diabetes mellitus #Parkinson's disease Patient plan of care was discussed with attending physician Dr. Yuliya Ramirez, PGY-1 Status at Discharge Overall status at discharge: patient is back to baseline Time Spent with Patient Time attestation: Total time spent providing and/or coordinating discharge services: Time spent: Greater than 30 minutes Exam Vital Signs Temp Pulse Resp BP Pulse Ox O2 Del Method O2 Flow Rate 97.1 F 62 20 116/56 L 98 Nasal Cannula 3 04/30/25 07:48 04/30/25 07:48 04/30/25 07:48 04/30/25 07:48 04/30/25 07:48 04/30/25 07:48 04/30/25 07:48 Narrative Exam Physical Exam: General: Alert, no acute distress. Dressing on top of Skin: Warm, dry, intact. Head: Normocephalic, atraumatic. Eye: Normal conjunctiva, PERRL. Cardiovascular: Regular rate and rhythm, systolic murmur over aortic/pulmonic regions, +S1/S2. Respiratory: Lungs are clear to auscultation, respirations unlabored, no crackles, no wheezing. Gastrointestinal: Soft, nontender, non-distended. No guarding or rebound tenderness. Extremities: 1+ pitting BLE edema, no cyanosis, no clubbing. Neuro: No focal deficits observed. Conversant, moving all extremities. No overt cerebellar signs/incoordination. Psychiatric: Cooperative, appropriate affect. Discharge Plan Plan Patient Disposition: HOME (Self Care) Patient condition on transfer: Stable Care Plan Goals: -Follow-up with PCP within 1 week of discharge. If you do not have appointment, please follow-up with the [facility] with Dr. Horne. Call [phone] to make an appointment. -Take insulin degludec 30 units instead of 50 and adjust the dose based on morning sugars and after meeting the PCP -Follow-up with within 2 weeks of discharge -Recommended high fiber intake -Continue rest of the home medications -Return to ED if symptoms persist or return Prescriptions/Referrals Prescriptions/Med Rec: Continued furosemide [Lasix] 40 MG tablet 40 mg PO QDAY Qty: 0 Eliquis 5 mg tablet 5 mg PO BID Patient Comments: TAKE 1 TABLET BY MOUTH TWICE DAILY pramipexole 0.25 mg tablet 0.25 mg PO TID amiodarone 200 mg tablet 200 mg PO BID levothyroxine 50 mcg tablet 50 mcg PO DAILY Patient Comments: TAKE 1 TABLET BY MOUTH DAILY IN THE MORNING ferrous sulfate [FeroSul] 325 mg (65 mg iron) tablet 325 mg PO DAILY Patient Comments: TAKE 1 TABLET BY MOUTH DAILY metoprolol succinate 100 mg tablet extended release 24 hr 100 mg PO DAILY Patient Comments: TAKE 1 TABLET BY MOUTH DAILY carbidopa-levodopa 50-200 mg tablet extended release 1 tab PO TID hydrocodone-acetaminophen 7.5-325 mg tablet 0.5 tab PO Q6H PRN (Reason: severe back pain) Patient Comments: TAKE 1/2 TABLET BY MOUTH EVERY 6 HOURS NEEDED FOR SEVERE BACK PAIN Centrum 18-400 mg-mcg Tablet 1 tab PO QDAY gabapentin 100 mg capsule 100 mg PO TID Qty: 30 0RF Baqsimi 3 mg/actuation spray,non-aerosol 3 mg intranasal QDAY PRN (Reason: hypoglycemia) Qty: 2 0RF gabapentin 300 mg capsule 300 mg PO TID Patient Comments: TAKE 2 CAPSULES BY MOUTH THREE TIMES DAILY Changed insulin degludec [Tresiba FlexTouch U-100] 100 unit/mL (3 mL) insulin pen 30 unit subcut QDAY Qty: 15 0RF Referrals: Tequila Ha MD [Primary Care Provider, Internal Medicine] Patient/Caregiver Discharge Instructions Other Discharge Activity Instructions:: Follow-up with PCP within 1 week of discharge. If you do not have appointment, please follow-up with the [facility] with Dr. Horne. Call [phone] to make an appointment. -Take insulin degludec 30 units instead of 50 and adjust the dose based on morning sugars and after meeting the PCP -Follow-up with within 2 weeks of discharge -Recommended high fiber intake -Continue rest of the home medications -Return to ED if symptoms persist or return Education Materials: Diabetes: Keeping Feet Healthy, Diabetes and Kidney Disease, Diabetes: Activity Tips, Diabetes PAD Print Language: French Stand Alone Forms: Shana Award Info., Patient Portal Info Letter Discharge Order Discharge Orders: Discharge (Routine); Ordered 04/30/25 Ordered By: Red Ramirez Quality Discharge Quality Measures VTE prophylaxis Attestestation MD Attestation I have discussed and was present for the essential components of the discharge history, physical examination, diagnosis, and discharge treatment plan with the resident. I agree with the patient's discharge care as documented by the resident and amended herein by me. Cyrus Dwyer DO. The patient understood all discharge instructions, all questions were answered satisfactorily. The patient was instructed to return to the Emergency Department is symptoms worsened or persisted. Patient was stable, afebrile, tolerating p.o. intake at time of discharge home with home health for wound care. Although this document has been carefully reviewed, there may still be some phonetic and other typographical errors. These errors are purely grammatical due to imperfections in the software program and should not be construed in any way to compromise the substance of the patient's medical care during this visit.
--- NOTE | 2025-04-30 11:34 | PC.NURSE ---
Pt O2 saturation 86% on room air at rest. Pt. O2 saturation improved to 96% on 3L via NC.
--- NOTE | 2025-04-30 14:39 | PC.SS ---
Bedside Commode Patient is physically incapable of utilizing regular toilet facilities because his or her diagnosis confines the patient to a single room. Patient is confined to a single level, and there is no toilet on that level; patient cannot access the toilet facilities in a timely manner due to lack of ambulation.
--- NOTE | 2025-04-30 14:44 | PC.SS ---
SS has sent DME order for commode to [facility]. Commode was recommended by Justo from PT.
--- NOTE | 2025-04-30 14:53 | PC.PT ---
Patient is safe to continue using the bedside commode with 1 staff assist. RN made aware.
--- NOTE | 2025-04-30 19:10 | PC.CC ---
hh ref sent, waiting for response. will need to send signed DC summary
--- NOTE | 2025-05-01 07:22 | PC.CC ---
Addendum entered by Bette Oliva RN 05/01/25 07:32: DC summary sent Original Note: Patient is booked with [facility], SOC is 05/02
== END 2025-04-30 17:51 | disposition home or self-care (01) | DRG 378 ==
LOC: SERX 20:57 → SERHOLD 04-28 00:57 → S3NX 04-28 01:13
PROVIDERS: Nurse Practitioner Family; Specialist; Admitting Provider Student in an Organized Health Care Education/Training Program; Emergency Provider Emergency Medicine; PCP Internal Medicine; Visit Provider Student in an Organized Health Care Education/Training Program
PROC: 0DJ08ZZ Inspection of Upper Intestinal Tract, Via Natural or Artificial Opening Endoscopic (ICD-10-PCS; CPT 43239; principal; 2025-04-28 16:00)
PROC: 0DJD8ZZ Inspection of Lower Intestinal Tract, Via Natural or Artificial Opening Endoscopic (ICD-10-PCS; CPT 45378; principal; 2025-04-29 16:30)
DX: K29.71 Gastritis, unspecified, with bleeding (principal); D62 Acute posthemorrhagic anemia; I13.0 Hypertensive heart and chronic kidney disease with heart failure and stage 1 through stage 4 chronic kidney disease, or unspecified chronic kidney disease; I48.20 Chronic atrial fibrillation, unspecified; I50.32 Chronic diastolic (congestive) heart failure; N17.9 Acute kidney failure, unspecified; K57.31 Diverticulosis of large intestine without perforation or abscess with bleeding; I49.5 Sick sinus syndrome; J44.9 Chronic obstructive pulmonary disease, unspecified; E11.22 Type 2 diabetes mellitus with diabetic chronic kidney disease; N18.9 Chronic kidney disease, unspecified; I95.9 Hypotension, unspecified; G20.A1 Parkinson's disease without dyskinesia, without mention of fluctuations; R82.81 Pyuria; E87.5 Hyperkalemia; G89.29 Other chronic pain; M54.9 Dorsalgia, unspecified; K64.8 Other hemorrhoids; Z95.0 Presence of cardiac pacemaker; Z79.01 Long term (current) use of anticoagulants; Z79.4 Long term (current) use of insulin; Z87.891 Personal history of nicotine dependence; Z90.710 Acquired absence of both cervix and uterus; Z79.890 Hormone replacement therapy; Z96.612 Presence of left artificial shoulder joint
CPT/HCPCS: 36415; 70450; 71045; 74176; 80048; 80053; 81001; 82270; 83735; 83880; 84484; 85025; 85610; 85730; 86850; 86900; 86901; 87077; 87086; 87186; 93005; 97162; 99285; A4649; J1200; J1815; J2250; J2470; J3010; J7030; J7120; A9270

== ENCOUNTER → 2025-06-11 | Outpatient (CLI) | payer MEDICARE, OTHER, SELFPAY | END | disposition home or self-care (01) | LOC: SWHD 08:09 | PROVIDERS: PCP Internal Medicine; Referring Provider Internal Medicine; Visit Provider Student in an Organized Health Care Education/Training Program | DX: I96 Gangrene, not elsewhere classified (principal); E11.621 Type 2 diabetes mellitus with foot ulcer; L89.310 Pressure ulcer of right buttock, unstageable; L97.511 Non-pressure chronic ulcer of other part of right foot limited to breakdown of skin; L97.422 Non-pressure chronic ulcer of left heel and midfoot with fat layer exposed; J44.9 Chronic obstructive pulmonary disease, unspecified; I10 Essential (primary) hypertension; E03.9 Hypothyroidism, unspecified; Z96.619 Presence of unspecified artificial shoulder joint; E11.40 Type 2 diabetes mellitus with diabetic neuropathy, unspecified; Z79.4 Long term (current) use of insulin | CPT/HCPCS: 99214; A9270; G0463 ==

== ENCOUNTER → 2025-06-18 | Outpatient (CLI) | payer MEDICARE, OTHER, SELFPAY | END | disposition home or self-care (01) | LOC: SWHD 09:55 | PROVIDERS: PCP Internal Medicine; Referring Provider Internal Medicine; Visit Provider Student in an Organized Health Care Education/Training Program | DX: I96 Gangrene, not elsewhere classified (principal); E11.621 Type 2 diabetes mellitus with foot ulcer; L89.310 Pressure ulcer of right buttock, unstageable; L97.511 Non-pressure chronic ulcer of other part of right foot limited to breakdown of skin; L97.422 Non-pressure chronic ulcer of left heel and midfoot with fat layer exposed; L97.311 Non-pressure chronic ulcer of right ankle limited to breakdown of skin; J44.9 Chronic obstructive pulmonary disease, unspecified; I10 Essential (primary) hypertension; E03.9 Hypothyroidism, unspecified; Z96.619 Presence of unspecified artificial shoulder joint; E11.40 Type 2 diabetes mellitus with diabetic neuropathy, unspecified; Z79.4 Long term (current) use of insulin | CPT/HCPCS: 11042; A9270 ==

== ENCOUNTER → 2025-06-25 | Outpatient (CLI) | payer MEDICARE, OTHER, SELFPAY | END | disposition home or self-care (01) | LOC: SWHD 08:37 | PROVIDERS: PCP Internal Medicine; Referring Provider Internal Medicine; Visit Provider Student in an Organized Health Care Education/Training Program | DX: I96 Gangrene, not elsewhere classified (principal); E11.621 Type 2 diabetes mellitus with foot ulcer; L89.310 Pressure ulcer of right buttock, unstageable; L97.511 Non-pressure chronic ulcer of other part of right foot limited to breakdown of skin; L97.422 Non-pressure chronic ulcer of left heel and midfoot with fat layer exposed; J44.9 Chronic obstructive pulmonary disease, unspecified; I10 Essential (primary) hypertension; E03.9 Hypothyroidism, unspecified; Z96.619 Presence of unspecified artificial shoulder joint; E11.40 Type 2 diabetes mellitus with diabetic neuropathy, unspecified; Z79.4 Long term (current) use of insulin | CPT/HCPCS: 11042; A9270 ==

== ENCOUNTER → 2025-07-02 | Outpatient (CLI) | payer MEDICARE, OTHER, SELFPAY | END | disposition home or self-care (01) | PROVIDERS: PCP Internal Medicine; Referring Provider Internal Medicine; Visit Provider Student in an Organized Health Care Education/Training Program | DX: I96 Gangrene, not elsewhere classified (principal); E11.621 Type 2 diabetes mellitus with foot ulcer; L89.310 Pressure ulcer of right buttock, unstageable; L97.511 Non-pressure chronic ulcer of other part of right foot limited to breakdown of skin; L97.422 Non-pressure chronic ulcer of left heel and midfoot with fat layer exposed; J44.9 Chronic obstructive pulmonary disease, unspecified; I10 Essential (primary) hypertension; E03.9 Hypothyroidism, unspecified; Z96.619 Presence of unspecified artificial shoulder joint; E11.40 Type 2 diabetes mellitus with diabetic neuropathy, unspecified; Z79.4 Long term (current) use of insulin | CPT/HCPCS: 97597 ==

== ENCOUNTER → 2025-07-09 | Outpatient (CLI) | payer MEDICARE, OTHER, SELFPAY | END | disposition home or self-care (01) | LOC: SWHD 09:42 | PROVIDERS: PCP Internal Medicine; Referring Provider Internal Medicine; Visit Provider Surgery | DX: I96 Gangrene, not elsewhere classified (principal); E11.621 Type 2 diabetes mellitus with foot ulcer; L89.310 Pressure ulcer of right buttock, unstageable; L97.511 Non-pressure chronic ulcer of other part of right foot limited to breakdown of skin; L97.422 Non-pressure chronic ulcer of left heel and midfoot with fat layer exposed; J44.9 Chronic obstructive pulmonary disease, unspecified; I10 Essential (primary) hypertension; E03.9 Hypothyroidism, unspecified; Z96.619 Presence of unspecified artificial shoulder joint; E11.40 Type 2 diabetes mellitus with diabetic neuropathy, unspecified; Z79.4 Long term (current) use of insulin | CPT/HCPCS: 11042; A9270 ==

== ENCOUNTER → 2025-07-16 | Outpatient (CLI) | payer MEDICARE, OTHER, SELFPAY | END | disposition home or self-care (01) | LOC: SWHD 09:43 | PROVIDERS: PCP Internal Medicine; Referring Provider Internal Medicine; Visit Provider Student in an Organized Health Care Education/Training Program | DX: I96 Gangrene, not elsewhere classified (principal); E11.621 Type 2 diabetes mellitus with foot ulcer; L97.511 Non-pressure chronic ulcer of other part of right foot limited to breakdown of skin; L89.310 Pressure ulcer of right buttock, unstageable; J44.9 Chronic obstructive pulmonary disease, unspecified; I10 Essential (primary) hypertension; E03.9 Hypothyroidism, unspecified; Z96.619 Presence of unspecified artificial shoulder joint; E11.40 Type 2 diabetes mellitus with diabetic neuropathy, unspecified; Z79.4 Long term (current) use of insulin | CPT/HCPCS: 97597; A9270 ==

== ENCOUNTER → 2025-07-17 | Outpatient (CLI) | payer MEDICARE, OTHER, SELFPAY ==
--- NOTE | 2025-07-17 09:56 | XR_ITS ---
Examination: Ribs, left, 3 views Technique: AP RPO LPO left ribs 3 views Exam date and time: July 17, 2025, 1003 hours INDICATIONS: Patient fell last week with injury to left chest, left rib pain Findings: Please see the chest x-ray report Severe osteopenia Acute fractures left third, fourth, fifth, sixth ribs anterolaterally No pneumothorax IMPRESSION: No pneumothorax Acute fractures left third, fourth, fifth, sixth ribs with mild offset at the fracture sites
--- NOTE | 2025-07-17 09:56 | XR_ITS ---
Examination: Shoulder, left, 3 views Technique: Shoulder AP internal rotation, AP external rotation, Y view shoulder, 3 views Exam date and time : Left July 17, 2025, 1003 hours INDICATIONS: Patient fell 1 week ago with injury to the shoulder, shoulder pain. FINDINGS: Please see the left rib series report Reverse left shoulder arthroplasty, satisfactory alignment There is a fracture involving the proximal humerus with a displaced fracture fragment medially on the external rotation view IMPRESSION: There is a fracture involving the proximal humerus with a displaced 3 cm fracture fragment, recommend CT scan shoulder without contrast follow-up
--- NOTE | 2025-07-17 09:56 | XR_ITS ---
EXAMINATION: PA lateral chest 2 views TECHNIQUE: Upright PA lateral chest 2 views Date and time: July 17, 2025, 1012 hours, ICA. INDICATIONS: Patient fell 1 week ago with injury to the left chest, left rib pain FINDINGS: Mild heart failure Mild enlargement cardiac contour Prominent vascular congestion with perihilar edema Consider superimposed pneumonia at the left lung base Cardiac leads satisfactory position No pneumothorax Severe osteopenia Reverse left shoulder arthroplasty IMPRESSION: No pneumothorax Mild heart failure Significant left base pneumonia
== END | disposition home or self-care (01) ==
PROVIDERS: PCP Internal Medicine; Referring Provider Orthopaedic Surgery; Visit Provider Orthopaedic Surgery
DX: J18.9 Pneumonia, unspecified organism (principal); I50.9 Heart failure, unspecified; S22.42XA Multiple fractures of ribs, left side, initial encounter for closed fracture; S49.92XA Unspecified injury of left shoulder and upper arm, initial encounter; W19.XXXA Unspecified fall, initial encounter
CPT/HCPCS: 71046; 71101; 73030

== ENCOUNTER → 2025-07-31 | Outpatient (CLI) | payer MEDICARE, OTHER, SELFPAY ==
[2025-07-31 10:04] LABS: Glucose Estimated Average 169 mg/dL (80-131); Hemoglobin A1C 7.5 % Hgb (4.8-6.0)
[2025-07-31 10:11] LABS: Alanine Aminotransferase 10 U/L (10-49); Albumin, Serum 3.6 gm/dL (3.4-4.8); Albumin/Globulin Ratio 1.2 (1.2-2.2); Alkaline Phosphatase 166 U/L (46-116); Anion Gap 7 (7-16); Aspartate Amino Transferase 26 U/L (0-34); BUN/Creatinine Ratio 13 Ratio (12-20); Bilirubin,Total 0.3 mg/dL (0.3-1.2); Blood Urea Nitrogen 14 mg/dL (9-23); Calcium 9.5 mg/dL (8.3-10.6); Calcium (Corrected) 9.8 mg/dL (8.5-10.1); Carbon Dioxide 28.9 mMol/L (20.0-31.0); Cardiac Risk Estimate 2.9 RATIO (3.7-5.6); Chloride 106 mMol/L (98-107); Cholesterol 149 mg/dL (132-200); Creatinine (Component) 1.1 mg/dL (0.6-1.3); Globulin 3.1 gm/dL (2.3-3.5); Glucose 136 mg/dL (74-106); HDL Cholesterol 51 mg/dL (40-60); LDL Cholesterol,Calculated 78 mg/dL (0-130); Osmolality,Calculated 285 (275-295); Potassium 5.2 mMol/L (3.4-5.1); Sodium 142 mMol/L (136-145); Total Protein 6.7 gm/dL (5.7-8.2); Triglycerides 100 mg/dL (30-150); eGFR 52 See Note
== END | disposition home or self-care (01) ==
LOC: COPL 08:43
PROVIDERS: PCP Internal Medicine; Referring Provider Internal Medicine; Visit Provider Internal Medicine
DX: I10 Essential (primary) hypertension (principal); E11.65 Type 2 diabetes mellitus with hyperglycemia
CPT/HCPCS: 36415; 80053; 80061; 83036